=== PATIENT | female | born 1955 | race Caucasian/White ===

== ENCOUNTER 2017-11-14 11:34 | Day surgery (SDC) | payer MEDICARE, BC ==
--- NOTE | 2017-11-13 13:22 | HP ---
DATE OF SURGERY: 11/14/2017 ANTICIPATED PROCEDURE: Screening colonoscopy. HISTORY OF PRESENT ILLNESS: The patient has previous history of colon cancer and presents for screening. PAST MEDICAL HISTORY: ALLERGIES: NONE. MEDICATIONS: Senna, folic acid, warfarin, tramadol. PAST SURGICAL HISTORY: Colon cancer sigmoid with resection. SOCIAL HISTORY: Negative. FAMILY HISTORY: Negative. PHYSICAL EXAMINATION: VITAL SIGNS: Normal. CHEST: Clear. COR: Regular. ABDOMEN: No palpable organomegaly or mass. IMPRESSION: Previous sigmoid colon cancer resected. PLAN: Colonoscopy.
[~2017-11-14 11:34] MED LIST: Lactated Ringers 1,000 ML IV ONE; Lactated Ringers 1,000 ML IV SCH; Sodium Chloride 0.9% 1000 ML 1,000 ML IV SCH
[2017-11-14] MEDS ORDERED: VERSED 5 MG/5 ML IV ONE (11:35)
[2017-11-14] MEDS ORDERED: DEMEROL 50 MG IV ONE ×2 (11:35)
[2017-11-14] MEDS ORDERED: Lactated Ringers 1,000 ML IV ONE (14:06)
[2017-11-14] MEDS ORDERED: Lactated Ringers 500 ML IV ONE (14:06)
[2017-11-14 15:20] VITALS: BP 133/55; PULSE 76; O2SAT 98
== END 2017-11-14 15:15 | disposition home or self-care (01) ==
LOC: SDC 11:34
PROVIDERS: ATTEND Surgery
DX: Z12.11 Encounter for screening for malignant neoplasm of colon (principal); Z85.038 Personal history of other malignant neoplasm of large intestine; Z79.01 Long term (current) use of anticoagulants; Z79.899 Other long term (current) drug therapy
CPT/HCPCS: 94250; G0105; J2175; J2250

== ENCOUNTER 2021-03-30 08:42 | Day surgery (SDC) | payer MEDICARE, OTHER ==
--- NOTE | 2021-03-27 13:11 | HP ---
DATE OF SURGERY: 03/30/2021 HISTORY OF PRESENT ILLNESS: The patient presents with a history of colon cancer. She had a sigmoid resection back in the . The patient is due for colonoscopy. The patient is also complaining of a right neck lesion she wishes to have removed. PAST MEDICAL HISTORY: Hyperlipidemia. Depression. Osteopenia. Atrial fibrillation. PAST SURGICAL HISTORY: Sigmoid colon resection. ALLERGIES: OXYCODONE. HYDROCODONE. MEDICATIONS: Paroxetine, atorvastatin, tramadol, Senna, warfarin, orphenadrine. FAMILY HISTORY: Heart disease, diabetes, cancer. SOCIAL HISTORY: None reported. REVIEW OF SYSTEMS: CONSTITUTIONAL: Denies fever or chills. CHEST: Denies shortness of breath. CVS: Denies chest pain. ABDOMEN: Denies abdominal pain, nausea, vomiting, diarrhea, constipation or rectal bleeding. PHYSICAL EXAMINATION: GENERAL: No acute distress. CHEST: Nonlabored. No shortness of breath. CVS: Regular rate and rhythm. ABDOMEN: Soft, nontender. IMPRESSION: History of colon cancer and left neck lesion. PLAN: Colonoscopy and excision of left neck lesion with Dr. Italo Martines. As dictated by Carlene Andrade NP.
[~2021-03-30 08:42] MED LIST changes: -Lactated Ringers 1,000 ML IV ONE; -Lactated Ringers 1,000 ML IV SCH; -Sodium Chloride 0.9% 1000 ML 1,000 ML IV SCH; +XYLOCAINE 1% HCL 20 ML MDV ONE
[2021-03-30] MEDS ORDERED: Lactated Ringers 1,000 ML IV SCH (09:00)
[2021-03-30] MEDS ORDERED: Xylocaine-Mpf 2% 5 Ml Vial ONE (10:49)
[2021-03-30] MEDS ORDERED: DIPRIVAN 200 MG/20 ML IV ONE ×2 (10:49→11:55)
[2021-03-30] MEDS ORDERED: SUBLIMAZE 100 MCG/2 ML ONE (10:49)
[2021-03-30] MEDS ORDERED: Versed 2 MG/2 ML Injection ONE (10:50)
[2021-03-30] MEDS ORDERED: Triple Antibiotic Ointment ONE (11:56)
[2021-03-30 13:18] VITALS: BP 146/75; PULSE 73; O2SAT 97
--- NOTE | 2021-03-30 13:32 | OP ---
SURGERY DATE/TIME: 03/30/2021 1142 PREOPERATIVE DIAGNOSES: 1) A 2 cm pigmented lesion left neck. 2) Two year follow up of colon cancer. POSTOPERATIVE DIAGNOSES: 1) A 2 cm pigmented lesion left neck. 2) Two year follow up of colon cancer. PROCEDURES: 1) Incision and closure. 2) Colonoscopy complete to cecum, normal. SURGEON: Italo Martines M.D. ANESTHESIA: General. COMPLICATIONS: None. CONDITION: Stable. INDICATION: A patient with the above condition. DESCRIPTION OF PROCEDURE: Taken to surgery. Routine prep and drape. Elliptical excision. 0.25% Marcaine. Hemostasis obtained with electrocautery. A 2 cm lesion removed through a 3.5 cm elliptical excision. Primary closure with five sutures #3-0 chromic. Sterile dressing applied. The patient tolerated the procedure satisfactorily. Anal digital examination satisfactory. Scope introduced. The scope advanced to the cecum. Base of the cecum, ileocecal valve, ascending, hepatic, transverse, splenic, descending. Sigmoid was absent. Anastomosis was normal. You can see old hash vazquez from the sutures totally normal. Rectum normal. Anus normal. IMPRESSION: Normal examination.
== END 2021-03-30 13:24 | disposition home or self-care (01) ==
LOC: SDC 08:42
PROVIDERS: ATTEND Surgery
DX: Z08 Encounter for follow-up examination after completed treatment for malignant neoplasm (principal); Z85.038 Personal history of other malignant neoplasm of large intestine; L82.1 Other seborrheic keratosis; Z79.899 Other long term (current) drug therapy
CPT/HCPCS: 11422; G0105; 88305; J2250; J2704; J3010; A9270-GY

== ENCOUNTER 2022-05-15 09:59 | Inpatient (IN) | payer MEDICARE, OTHER ==
--- NOTE | 2022-05-15 10:44 | XRAY ---
Indication: Cough. Comparison: May 01, 2019 Portable chest demonstrates new minimal left base discoid atelectasis/scarring. Remaining heart and lungs unremarkable. Bony thorax intact again with osteopenia and mild degenerative changes.
--- NOTE | 2022-05-15 10:48 | ERPHSYRPT ---
- History of Present Illness Time Seen by Provider: 05/15/22 10:43 Exam Limitations: no limitations Patient Subjective Stated Complaint: C/O Cough with pain in chest and abdomen with coughing. Triage Nursing Assessment: Patient ambulated back to ER. Patient noted to be SOB with exertion. She is alert and oriented. Non-productive cough present. Lungs clear. Physician History: Patient is a 66-year-old female presents to emergency department for evaluation of cough productive of green sputum. Patient states that symptoms have been ongoing for approximately a week and a half. Patient has been experiencing some shortness of breath. Patient experiences some chest discomfort and abdominal discomfort while she is coughing only. Patient feels weak. Patient feels her symptoms are progressing. Patient experiences significant shortness of breath with short distances. Patient states this is unusual for her. Patient states she is fully vaccinated. Symptoms are moderate in intensity. Patient concerned that she may have pneumonia. No fever at home. No nausea vomiting or diaphoresis. No rash. Patient denies a history of the same. She voices no other complaints or concerns at this time. Portions of this note were created with voice recognition technology. There may be grammatical, spelling, punctuation or sound alike errors Timing/Duration: week(s) (1.5 weeks) Severity: moderate Modifying Factors: Improves With: other (Ambulation/activity/exertion worsens shortness of breath.) Associated Symptoms: weakness (Generalized weakness no syncope or fever) Allergies/Adverse Reactions: hydrocodone Adverse Reaction (Mild, Verified 05/15/22 10:00) Vomiting oxycodone Adverse Reaction (Mild, Verified 05/15/22 10:00) Vomiting Home Medications: Atorvastatin Calcium 80 mg PO DAILY 11/13/17 [History] Paroxetine Mesylate 12.5 mg PO DAILY 11/13/17 [History] Sennosides [Senna] 1 tab PO BID 11/13/17 [History] Tramadol HCl 50 mg PO DAILY PRN 11/13/17 [History] Warfarin Sodium 4 mg PO DAILY 11/13/17 [History] Hx Tetanus, Diphtheria Vaccination/Date Given: Yes Hx Influenza Vaccination/Date Given: Yes Hx Pneumococcal Vaccination/Date Given: Yes Immunizations Up to Date: Yes Travel Risk - International Travel Have you traveled outside of the country in past 3 weeks: No - Coronavirus Screening Are you exhibiting any of the following symptoms?: Yes Symptoms: Cough: New Onset, Shortness of Breath Close contact with a COVID-19 positive Pt in past 14-21 Days: No - Vaccine Status Have you recieved a Covid-19 vaccination: Yes [employer]: [employer] - Vaccination Dates Date of 2cond Vaccination (if applicable): ? - Review of Systems Constitutional: No Symptoms, No Fever, No Chills Eyes: No Symptoms Ears, Nose, & Throat: No Symptoms Respiratory: No Symptoms, No Cough, No Dyspnea Cardiac: No Symptoms, No Chest Pain, No Edema, No Syncope Abdominal/Gastrointestinal: No Symptoms, No Abdominal Pain, No Nausea, No Vomiting, No Diarrhea Genitourinary Symptoms: No Symptoms, No Dysuria Musculoskeletal: No Symptoms, No Back Pain, No Neck Pain Skin: No Symptoms, No Rash Neurological: No Symptoms, No Dizziness, No Focal Weakness, No Sensory Changes Psychological: No Symptoms Endocrine: No Symptoms Hematologic/Lymphatic: No Symptoms Immunological/Allergic: No Symptoms All Other Systems: Reviewed and Negative - Past Medical History Pertinent Past Medical History: Yes Neurological History: Migraines, TIA ENT History: Cataracts Cardiac History: Deep Vein Thrombosis, High Cholesterol Respiratory History: Asthma Endocrine Medical History: No Pertinent History Musculoskeletal History: Other GI Medical History: Colorectal Cancer History: No Pertinent History Psycho-Social History: No Pertinent History Female Reproductive Disorders: No Pertinent History Other Medical History: L subclavian blood clot with chemo. chemo [id number]. 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 anesthesia questionaire says RSD.reflex systemic dyst rophy. osteopenia. cluster headaches - Past Surgical History Past Surgical History: Yes Neuro Surgical History: No Pertinent History Cardiac: Other Respiratory: No Pertinent History Gastrointestinal: Colon Resection, Exploratory Laparoscopy, Other Genitourinary: No Pertinent History Musculoskeletal: Other Female Surgical History: Hysterectomy Other Surgical History: CVL port in & out, nuclear medicine stress test several years ago, ostomy placement and reversal, pt states surgery for both shoulders, "frozen shoulders" - Social History Smoking Status: Former smoker How long have you smoked: 44 yrs Exposure to second hand smoke: No Drug Use: none Patient Lives Alone: No () - Nursing Vital Signs Nursing Vital Signs: Initial Vital Signs Temperature 97.3 F 05/15/22 10:01 Pulse Rate 81 05/15/22 10:01 Respiratory Rate 22 05/15/22 10:01 Blood Pressure 138/67 05/15/22 10:01 O2 Sat by Pulse Oximetry 97 05/15/22 10:01 Pain Scale Pain Intensity 0 - Physical Exam General Appearance: no apparent distress, alert, other (Labored breathi ng/shortness of breath with exertion) Eye Exam: PERRL/EOMI, eyes nml inspection Ears, Nose, Throat Exam: normal ENT inspection, TMs normal, pharynx normal, moist mucous membranes Neck Exam: normal inspection, non-tender, supple, full range of motion Respiratory Exam: normal breath sounds, lungs clear, airway intact, other (Lungs are clear. No wheezing. No respiratory distress at rest.), No respiratory distress Cardiovascular Exam: regular rate/rhythm, normal heart sounds, normal peripheral pulses Gastrointestinal/Abdomen Exam: soft, normal bowel sounds, No tenderness, No mass Back Exam: normal inspection, normal range of motion, No CVA tenderness, No vertebral tenderness Extremity Exam: normal inspection, normal range of motion, pelvis stable Neurologic Exam: alert, oriented x 3, cooperative, normal mood/affect, nml cerebellar function, nml station & gait, sensation nml, No motor deficits Skin Exam: normal color, warm, dry, No rash Lymphatic Exam: No adenopathy SpO2 Interpretation: normal SpO2: 97 O2 Delivery: Room Air - Course Nursing assessment & vital signs reviewed: Yes EKG Interpreted by Me: RATE, Sinus Rhythm, NORMAL AXIS, NORMAL INTERVALS - Radiology Exams Chest X-ray Interpretation: Teleradiologist Report (New minimal left base discoid atelectasis/scarring. Osteopenia degenerative changes otherwise negative) - CT Exams Chest CT Interpretation: Tele-radiologist Report (No PE. Bibasilar subsegmental atelectasis. No acute cardiopulmonary abnormalities. Incidental fatty liver) Ordered Tests: Active Orders 24 hr Category Date Time Status Refrigeration Systems Installer STAT Care 05/15/22 10:50 Active EKG-ER Only STAT Care 05/15/22 10:49 Active IV Insertion STAT Care 05/15/22 10:49 Active Pulse Oximetry (ED) STAT Care 05/15/22 10:49 Active CHEST 1 VIEW (PORTABLE) Stat Exams 05/15/22 10:19 Completed CHEST WITH CONTRAST [CT] Stat Exams 05/15/22 12:36 Completed BLOOD CULTURE Stat Lab 05/15/22 11:01 Received CBC W DIFF Stat Lab 05/15/22 10:54 Completed CMP Stat Lab 05/15/22 10:54 Completed D-DIMER QUANTITATIVE Stat Lab 05/15/22 11:40 Completed NT PRO BNP Stat Lab 05/15/22 10:54 Completed PROTIME WITH INR Stat Lab 05/15/22 10:49 Completed PTT Stat Lab 05/15/22 10:49 Completed TROPONIN Q4H Lab 05/15/22 10:54 Completed TROPONIN Q4H Lab 05/15/22 15:00 Ordered TROPONIN Q4H Lab 05/15/22 19:00 Ordered Respiratory Therapy Assessment DAILY RT 05/15/22 14:13 Active Transfer Order Routine Transfer 05/15/22 Ordered Medication Summary Generic Name Dose Route Start Last Admin Trade Name Freq PRN Reason Stop Dose Admin Albuterol Sulfate 4 puff 05/15/22 13:59 05/15/22 14:13 Albuterol Common Canister Inhaler IH 06/14/22 13:58 4 puff Q4H PRN PRN Administration SHORTNESS OF BREATH/WHEEZING Discontinued Medications Generic Name Dose Route Start Last Admin Trade Name Freq PRN Reason Stop Dose Admin Dexamethasone Sodium Phosphate 6 mg 05/15/22 13:55 05/15/22 14:08 Dexamethasone Sod Phosphate 4 Mg/Ml Ml IV 05/15/22 13:56 6 mg STAT ONE Administration Dexamethasone Sodium Phosphate Confirm 05/15/22 14:05 Dexamethasone Sod Phosphate 4 Mg/Ml Ml Administered 05/15/22 14:06 Dose 8 mg .ROUTE .oboxo-MED ONE Lab/Rad Data: Laboratory Result Diagrams 05/15/22 10:54 05/15/22 10:54 Laboratory Results 05/15/22 05/15/22 05/15/22 Range/Units 12:13 11:40 10:54 WBC (4.0-10.5) x10^3/uL RBC (4.1-5.4) x10^6/uL Hgb (12.0-16.0) g/dL Hct (35-47) % MCV (78-100) fL MCH (26-32) pg MCHC (32-36) g/dL RDW (11.5-14.0) % Plt Count (150-450) x10^3/uL MPV (7.5-11.0) fL Gran % (36.0-66.0) % Immature Gran % (Auto) (0.00-0.4) % Nucleat RBC Rel Count (0.00-0.1) % Eos # (Auto) (0-0.5) x10^3/uL Immature Gran # (Auto) (0.00-0.03) x10^3u/L Absolute Lymphs (auto) (1.0-4.6) x10^3/uL Absolute Monos (auto) (0.0-1.3) x10^3/uL Absolute Nucleated RBC (0.00-0.01) x10^3u/L Lymphocytes % (24.0-44.0) % Monocytes % (0.0-12.0) % Eosinophils % (0.00-5.0) % Basophils % (0.0-0.4) % Absolute Granulocytes (1.4-6.9) x10^3/uL Basophils # (0-0.4) x10^3/uL PT (9.4-12.5) SECONDS INR (0.8-3.0) APTT (25.1-36.5) SECONDS D-Dimer < 0.19 (0.0-0.50) mg/L Sodium (137-145) mmol/L Potassium (3.5-5.1) mmol/L Chloride (98-107) mmol/L Carbon Dioxide (22-30) mmol/L Anion Gap (5-15) MEQ/L BUN (7-17) mg/dL Creatinine (0.52-1.04) mg/dL Estimated GFR ML/MIN Glucose (74-106) mg/dL Calcium (8.4-10.2) mg/dL Total Bilirubin (0.2-1.3) mg/dL AST (14-36) U/L ALT (0-35) U/L Alkaline Phosphatase (38-126) U/L Troponin I < 0.012 (0.000-0.034) ng/mL NT-Pro-B Natriuret Pep (0-900) pg/mL Serum Total Protein (6.3-8.2) g/dL Albumin (3.5-5.0) g/dL Influenza Type A Ag NEGATIVE (NEGATIVE) Influenza Type B Ag NEGATIVE (NEGATIVE) RSV (PCR) NEGATIVE (Negative) SARS-CoV-2 (PCR) POSITIVE A (NEGATIVE) 05/15/22 05/15/22 05/15/22 Range/Units 10:54 10:54 10:49 WBC 7.9 (4.0-10.5) x10^3/uL RBC 4.37 (4.1-5.4) x10^6/uL Hgb 12.7 (12.0-16.0) g/dL Hct 40.0 (35-47) % MCV 91.5 (78-100) fL MCH 29.1 (26-32) pg MCHC 31.8 L (32-36) g/dL RDW 14.7 H (11.5-14.0) % Plt Count 279 (150-450) x10^3/uL MPV 11.4 H (7.5-11.0) fL Gran % 70.8 H (36.0-66.0) % Immature Gran % (Auto) 0.3 (0.00-0.4) % Nucleat RBC Rel Count 0.0 (0.00-0.1) % Eos # (Auto) 0.06 (0-0.5) x10^3/uL Immature Gran # (Auto) 0.02 (0.00-0.03) x10^3u/L Absolute Lymphs (auto) 1.61 (1.0-4.6) x10^3/uL Absolute Monos (auto) 0.56 (0.0-1.3) x10^3/uL Absolute Nucleated RBC 0.00 (0.00-0.01) x10^3u/L Lymphocytes % 20.4 L (24.0-44.0) % Monocytes % 7.1 (0.0-12.0) % Eosinophils % 0.8 (0.00-5.0) % Basophils % 0.6 (0.0-0.4) % Absolute Granulocytes 5.61 (1.4-6.9) x10^3/uL Basophils # 0.05 (0-0.4) x10^3/uL PT 28.8 H (9.4-12.5) SECONDS INR 3.00 (0.8-3.0) APTT 50.0 H (25.1-36.5) SECONDS D-Dimer (0.0-0.50) mg/L Sodium 141 (137-145) mmol/L Potassium 3.9 (3.5-5.1) mmol/L Chloride 115 H (98-107) mmol/L Carbon Dioxide 20 L (22-30) mmol/L Anion Gap 10.6 (5-15) MEQ/L BUN 12 (7-17) mg/dL Creatinine 1.18 H (0.52-1.04) mg/dL Estimated GFR 48.7 ML/MIN Glucose 117 H (74-106) mg/dL Calcium 8.6 (8.4-10.2) mg/dL Total Bilirubin 0.30 (0.2-1.3) mg/dL AST 48 H (14-36) U/L ALT 32 (0-35) U/L Alkaline Phosphatase 146 H (38-126) U/L Troponin I (0.000-0.034) ng/mL NT-Pro-B Natriuret Pep 345 (0-900) pg/mL Serum Total Protein 7.6 (6.3-8.2) g/dL Albumin 4.1 (3.5-5.0) g/dL Influenza Type A Ag (NEGATIVE) Influenza Type B Ag (NEGATIVE) RSV (PCR) (Negative) SARS-CoV-2 (PCR) (NEGATIVE) - Progress Progress: improved Progress Note: Patient is a 66-year-old female presents to our ED for evaluation of progressive shortness of breath and coughing over the past 10 days. Patient states she occasionally coughs up green sputum. Coughing produced some discomfort to her chest and abdomen only when she coughs. Patient has a history of IVC blood clot. Patient currently on Coumadin. Patient ambulated in our ED as we assess for oxygenation. Patient was able to maintain an oxygenation of 95% however breathing was significantly labored. Review of systems and physical exam sent and unremarkable. Lung exam was normal no crackles no rales rhonchi no wheezing. Complexity of patient's presentation was moderate. No respiratory distress. Patient's comorbidities did not significantly contribute to her presentation. Test ordered include a chest x-ray, CT chest, blood culture, CBC, CMP, COVID study, D-dimer, proBNP, PT/INR, PTT, troponin. Chest x-ray was essentially nonremarkable. It did not explain her symptoms. We obtained a D-dimer which was also negative. We do not have a clear explanation of patient's symptoms. Patient had no history of COPD. In light of the fact that sensitivity of chest x-ray is approximately 70% we ordered a CT chest to assess for the possibility of PE or an alternative explanation for patient's symptoms. Although patient was therapeutic on Coumadin patient has a history of blood clot in her IVC. CT chest was negative. No significant findings on laboratory work-up. COVID positive. In light of the fact that patient's testing negative and COVID is positive. Patient symptoms likely due to COVID. proBNP normal. INR 3.0 based on coagulation study obtained. Troponin negative. The results of our testing was used for medical decision making. No outside medical records reviewed during this visit. Patient's treatment include albuterol canister which is protocol for COVID-positive patients. Patient received a dose of Decadron. No Lovenox administered as patient currently therapeutic on Coumadin. Case discussed with Dr. Rodriguez our service DrAnish Of the day. Dr. Rodriguez accepts admission to our observation COVID unit. Level of EM service provided was moderate. Number of problems addressed is 1. Complexity of problem addressed is moderate. Amount and complexity of data reviewed and analyzed is moderate. Risks of complication and/or risk of morbidi ty/mortality of patient management is moderate. No critical care time during this encounter. Patient served as a independent and competent historian. No residential care facility manager service required. Patient is a full code. Patient resting comfortably. Patient's response to treatment was good. Patient felt better after albuterol and Decadron treatment. Time spent during disposition is approximately 15 minutes. Disposition is admission to our COVID observation unit. Patient presenting problem was acute illness with systemic symptoms in light of the fact that patient is COVID-positive short of breath and experiencing generalized weakness. Portions of this note were created with voice recognition technology. There may be grammatical, spelling, punctuation or sound alike errors 05/15/22 14:[address] Kayla Will see patient in: hospital (observation) Counseled pt/family regarding: lab results, diagnosis, rad results - Departure Departure Disposition: Observation Clinical Impression: Cough, Exertional shortness of breath, Generalized weakness, Productive cough, Fatty liver, COVID Condition: Stable Critical Care Time: No Referrals: JOHANNA DAVIS MD [Primary Care Provider] - Follow up/PCP as directed
[2022-05-15 11:19] LABS: Absolute Neutrophil Ct (ANC) 5.61 x10^3/uL (1.4-6.9); BASOPHIL % 0.6 % (0.0-0.4); Basophil (Absolute #) 0.05 x10^3/uL (0-0.4); Eosinophil % 0.8 % (0.00-5.0); Eosinophil (Absolute #) 0.06 x10^3/uL (0-0.5); Hemoglobin 12.7 g/dL (12.0-16.0); IMMATURE GRAN # 0.02 x10^3u/L (0.00-0.03); IMMATURE GRAN % 0.3 % (0.00-0.4); Lymphocyte (Absolute #) 1.61 x10^3/uL (1.0-4.6); Lymphocytes % 20.4 % (24.0-44.0); Mean Cell Volume 91.5 fL (78-100); Mean Corpuscular Hemoglobin 29.1 pg (26-32); Mean Corpuscular Hgb Concent. 31.8 g/dL (32-36); Mean Platelet Volume 11.4 fL (7.5-11.0); Monocyte (Absolute #) 0.56 x10^3/uL (0.0-1.3); Monocytes % 7.1 % (0.0-12.0); Neutrophil % 70.8 % (36.0-66.0); Platelet Count 279 x10^3/uL (150-450); Red Blood Count 4.37 x10^6/uL (4.1-5.4); Red Cell Distribution Width 14.7 % (11.5-14.0); White Blood Count 7.9 x10^3/uL (4.0-10.5)
[2022-05-15 11:48] LABS: PROTIME 28.8 SECONDS (9.4-12.5)
[2022-05-15 11:56] LABS: ALBUMIN 4.1 g/dL (3.5-5.0); ANION GAP 10.6 MEQ/L (5-15); BILIRUBIN,TOTAL 0.3 mg/dL (0.2-1.3); Calcium 8.6 mg/dL (8.4-10.2); Creatinine 1 1.18 mg/dL (0.52-1.04); EST GLOMERULAR FILTRATION RATE 48.7 ML/MIN; Potassium 3.9 mmol/L (3.5-5.1); Total Protein 7.6 g/dL (6.3-8.2)
[2022-05-15 12:51] LABS: INFLUENZA A NEGATIVE (NEGATIVE); INFLUENZA B NEGATIVE (NEGATIVE); RESPIRATORY SYNCTIAL VIRUS NEGATIVE (Negative)
[2022-05-15 13:05] LABS: SARS-CoV-2 Xpert Express POSITIVE (NEGATIVE)
--- NOTE | 2022-05-15 13:36 | XRAY ---
Indication: Short of breath. Multiple contiguous axial images obtained through the chest using 80 cc Isovue 370 contrast and PE protocol. Comparison: None Good opacification of the pulmonary arteries to include the lobar and segmental branches. No pulmonary embolus. Heart not enlarged. Aorta is normal in course and caliber. No pathologic mediastinal/hilar lymphadenopathy. Lungs demonstrates bibasilar subsegmental atelectasis, left greater than right. No suspicious pulmonary mass/nodule, infiltrate, effusion, or pneumothorax. Bony thorax intact. Limited upper abdomen demonstrates fatty liver. Impression: 1. Negative pulmonary embolus. 2. Bibasilar subsegmental atelectasis. No acute cardiopulmonary abnormalities. 3. Incidental fatty liver.
[2022-05-15] MEDS ORDERED: Decadron 4 MG INJ IV ONE (13:55)
[2022-05-15] MEDS ORDERED: VENTOLIN COMMON CANISTER IH PRN (13:59)
[2022-05-15] MEDS ORDERED: Decadron 4 MG INJ ONE (14:05)
[2022-05-15] MEDS ORDERED: Zofran 4 MG/2 ML VIAL IV PRN (14:37)
[2022-05-15] MEDS: VENTOLIN COMMON CANISTER IH PRN ×2 (14:51→18:24)
[2022-05-15] MEDS ORDERED: REMDESIVIR 200 MG in Sodium Chloride 0.9% 250 ML 250 ML IV ONE (16:00)
[2022-05-15] MEDS: ZOCOR 20MG PO SCH (18:49)
[2022-05-15] MEDS: Coumadin 3 MG PO SCH (18:50)
[2022-05-15] MEDS: SENOKOT 8.6 MG PO SCH (18:50)
[2022-05-15] MEDS: JANTOVEN PO SCH (18:50)
[2022-05-15] MEDS: PAROXETINE ER 12.5 MG TABLET PO SCH (19:58)
[2022-05-15] MEDS: ULTRAM 50 MG PO PRN (20:01)
[2022-05-16 05:13] LABS: Absolute Neutrophil Ct (ANC) 4.61 x10^3/uL (1.4-6.9); BASOPHIL % 0.2 % (0.0-0.4); Basophil (Absolute #) 0.01 x10^3/uL (0-0.4); Eosinophil (Absolute #) 0 x10^3/uL (0-0.5); Hematocrit 38.6 % (35-47); Hemoglobin 11.9 g/dL (12.0-16.0); IMMATURE GRAN # 0.02 x10^3u/L (0.00-0.03); IMMATURE GRAN % 0.3 % (0.00-0.4); Lymphocyte (Absolute #) 1.57 x10^3/uL (1.0-4.6); Lymphocytes % 23.9 % (24.0-44.0); Mean Cell Volume 92.1 fL (78-100); Mean Corpuscular Hemoglobin 28.4 pg (26-32); Mean Corpuscular Hgb Concent. 30.8 g/dL (32-36); Mean Platelet Volume 10.9 fL (7.5-11.0); Monocyte (Absolute #) 0.35 x10^3/uL (0.0-1.3); Monocytes % 5.3 % (0.0-12.0); Neutrophil % 70.3 % (36.0-66.0); Platelet Count 281 x10^3/uL (150-450); Red Blood Count 4.19 x10^6/uL (4.1-5.4); White Blood Count 6.6 x10^3/uL (4.0-10.5)
[2022-05-16 05:53] LABS: INR 2.33 (0.8-3.0); PROTIME 22.9 SECONDS (9.4-12.5)
[2022-05-16] MEDS ORDERED: PAROXETINE MESYLATE 7.5 MG PO SCH (10:00)
[2022-05-16] MEDS ORDERED: LIPITOR 40MG PO SCH (10:00)
[2022-05-16] MEDS: REMDESIVIR 100 MG in Sodium Chloride 100ML MINI-BAG PLUS 100 ML IV SCH (10:39)
[2022-05-16] MEDS: Sodium Chloride 0.9% 1000 ML 1,000 ML IV SCH ×2 (10:41→21:12)
[2022-05-16] MEDS: SENOKOT 8.6 MG PO SCH ×2 (10:41→17:41)
--- NOTE | 2022-05-16 11:39 | PCM.HP ---
History of Present Illness - Chief Complaint Chief Complaint: COVID, SOB History of Present Illness: is a 66 year old female pt with hx DVT (on coumadin), HLD, hx colorectal ca (1990), Stroke/TIA (1996 and 2012), RSD, osteopenia, and fatty liver who was admitted through ER with cough and SOB and dx with COVID. She was given 1 dose remdesivir in the ER and feels that has really helped. Given decadron x 1 in ER (not on O2). SHe was sick x 10d with cough and SOB. no fever. weakness. worsening. Had all covid vaccines and boosters. now feeling better. Has been torrey po fine, but her initial CO2 was 20 and this morning is 19.6 (IV fluids added). Her eGFR 50 this morning. - Review of Systems Constitutional: Weakness Respiratory: Cough, Short Of Breath Abdominal/Gastrointestinal: Abdominal Pain (lower abd, with cough), Diarrhea (prior to arrival) Neurological: Other (insomnia) Psychological: No Anxiety, No Depression All Other Systems: Reviewed and Negative Medications & Allergies Home Medications: Home Medication List Atorvastatin Calcium 80 mg PO DAILY 11/13/17 [History Confirmed 05/15/22] Paroxetine Mesylate 12.5 mg PO DAILY 11/13/17 [History Confirmed 05/15/22] Sennosides [Senna] 1 tab PO BID 11/13/17 [History Confirmed 05/15/22] Tramadol HCl 50 mg PO DAILY PRN 11/13/17 [History Confirmed 05/15/22] Warfarin Sodium 4 mg PO DAILY 11/13/17 [History Confirmed 05/15/22] Acetaminophen 500 mg [Tylenol Extra Strength 500 mg] 1,000 mg PO Q6H PRN 05/15/22 [History Confirmed 05/15/22] Allergies/Adverse Reactions: Allergies Allergy/AdvReac Type Severity Reaction Status Date / Time hydrocodone AdvReac Mild Vomiting Verified 05/15/22 15:17 oxycodone AdvReac Mild Vomiting Verified 05/15/22 15:17 - Past Medical History Past Medical History: Yes Neurological History: Migraines, TIA ENT History: Cataracts Cardiac History: Deep Vein Thrombosis, High Cholesterol Respiratory History: Asthma Endocrine Medical History: No Pertinent History Musculoskelatal History: Other GI Medical History: Colorectal Cancer History: No Pertinent History Pyscho-Social History: No Pertinent History Reproductive Disorders: No Pertinent History Comment: L subclavian blood clot with chemo. chemo [id number]. 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 anesthesia questionairfern says RSD.reflex systemic dystrophy. osteopenia. cluster headaches - Female History Are you now?: No - Past Surgical History Past Surgical History: Yes Neuro Surgical History: No Pertinent History Cardiac History: Other Respiratory Surgery: No Pertinent History GI Surgical History: Colon Resection, Exploratory Laparoscopy, Other Genitourinary Surgical Hx: No Pertinent History Musculskeletal Surgical Hx: Other Female Surgical History: Hysterectomy Other Surgical History: CVL port in & out, nuclear medicine stress test several years ago, ostomy placement and reversal, pt states surgery for both shoulders, "frozen shoulders" - Social History Smoking Status: Former smoker How long have you smoked: 44 yrs Exposure to second hand smoke: No Alcohol: None Drug Use: none - Physical Exam Vital Signs: Vital Signs - 24 hr Temp Pulse Resp BP Pulse Ox 05/16/22 08:00 97.7 F 74 18 120/84 97 05/16/22 07:23 72 18 94 L 05/16/22 04:00 98.5 F 70 16 132/58 05/16/22 00:00 98 F 79 18 113/83 94 L 05/15/22 19:59 98.4 F 90 16 165/65 88 L 05/15/22 18:24 84 18 94 L 05/15/22 14:55 97.6 F 82 19 158/70 94 L 05/15/22 14:52 80 20 94 L 05/15/22 14:34 97 05/15/22 14:13 69 20 97 05/15/22 14:00 72 16 109/65 98 05/15/22 12:15 72 138/65 100 General Appearance: no apparent distress, obese Neurologic Exam: alert, oriented x 3, cooperative Eye Exam: eyes nml inspection Ears, Nose, Throat Exam: moist mucous membranes Neck Exam: normal inspection, non-tender, No lymphadenopathy, No subcutaneous emphysema, No thyromegaly Respiratory Exam: normal breath sounds, lungs clear, No crackles/rales, No rhonchi, No wheezing Cardiovascular Exam: regular rate/rhythm, normal heart sounds, No murmur Gastrointestinal/Abdomen Exam: soft, normal bowel sounds, tenderness (lower abd), No distention, No mass, No guarding, No rebound Extremity Exam: normal inspection, No pedal edema, No swelling Skin Exam: normal color, warm, dry, No rash Results - Labs Lab/Micro Results: Lab Results-Last 24 Hours 05/15/22 05/15/22 05/15/22 Range/Units 10:49 10:54 10:54 WBC (4.0-10.5) x10^3/uL RBC (4.1-5.4) x10^6/uL Hgb (12.0-16.0) g/dL Hct (35-47) % MCV (78-100) fL MCH (26-32) pg MCHC (32-36) g/dL RDW (11.5-14.0) % Plt Count (150-450) x10^3/uL MPV (7.5-11.0) fL Gran % (36.0-66.0) % Immature Gran % (Auto) (0.00-0.4) % Nucleat RBC Rel Count (0.00-0.1) % Eos # (Auto) (0-0.5) x10^3/uL Immature Gran # (Auto) (0.00-0.03) x10^3u/L Absolute Lymphs (auto) (1.0-4.6) x10^3/uL Absolute Monos (auto) (0.0-1.3) x10^3/uL Absolute Nucleated RBC (0.00-0.01) x10^3u/L Lymphocytes % (24.0-44.0) % Monocytes % (0.0-12.0) % Eosinophils % (0.00-5.0) % Basophils % (0.0-0.4) % Absolute Granulocytes (1.4-6.9) x10^3/uL Basophils # (0-0.4) x10^3/uL PT 28.8 H (9.4-12.5) SECONDS INR 3.00 (0.8-3.0) APTT 50.0 H (25.1-36.5) SECONDS D-Dimer (0.0-0.50) mg/L Sodium 141 (137-145) mmol/L Potassium 3.9 (3.5-5.1) mmol/L Chloride 115 H (98-107) mmol/L Carbon Dioxide 20 L (22-30) mmol/L Anion Gap 10.6 (5-15) MEQ/L BUN 12 (7-17) mg/dL Creatinine 1.18 H (0.52-1.04) mg/dL Estimated GFR 48.7 ML/MIN Glucose 117 H (74-106) mg/dL Calcium 8.6 (8.4-10.2) mg/dL Total Bilirubin 0.30 (0.2-1.3) mg/dL AST 48 H (14-36) U/L ALT 32 (0-35) U/L Alkaline Phosphatase 146 H (38-126) U/L Troponin I < 0.012 (0.000-0.034) ng/mL NT-Pro-B Natriuret Pep 345 (0-900) pg/mL Serum Total Protein 7.6 (6.3-8.2) g/dL Albumin 4.1 (3.5-5.0) g/dL Influenza Type A Ag (NEGATIVE) Influenza Type B Ag (NEGATIVE) RSV (PCR) (Negative) SARS-CoV-2 (PCR) (NEGATIVE) 05/15/22 05/15/22 05/15/22 Range/Units 11:40 12:13 15:47 WBC (4.0-10.5) x10^3/uL RBC (4.1-5.4) x10^6/uL Hgb (12.0-16.0) g/dL Hct (35-47) % MCV (78-100) fL MCH (26-32) pg MCHC (32-36) g/dL RDW (11.5-14.0) % Plt Count (150-450) x10^3/uL MPV (7.5-11.0) fL Gran % (36.0-66.0) % Immature Gran % (Auto) (0.00-0.4) % Nucleat RBC Rel Count (0.00-0.1) % Eos # (Auto) (0-0.5) x10^3/uL Immature Gran # (Auto) (0.00-0.03) x10^3u/L Absolute Lymphs (auto) (1.0-4.6) x10^3/uL Absolute Monos (auto) (0.0-1.3) x10^3/uL Absolute Nucleated RBC (0.00-0.01) x10^3u/L Lymphocytes % (24.0-44.0) % Monocytes % (0.0-12.0) % Eosinophils % (0.00-5.0) % Basophils % (0.0-0.4) % Absolute Granulocytes (1.4-6.9) x10^3/uL Basophils # (0-0.4) x10^3/uL PT (9.4-12.5) SECONDS INR (0.8-3.0) APTT (25.1-36.5) SECONDS D-Dimer < 0.19 (0.0-0.50) mg/L Sodium (137-145) mmol/L Potassium (3.5-5.1) mmol/L Chloride (98-107) mmol/L Carbon Dioxide (22-30) mmol/L Anion Gap (5-15) MEQ/L BUN (7-17) mg/dL Creatinine (0.52-1.04) mg/dL Estimated GFR ML/MIN Glucose (74-106) mg/dL Calcium (8.4-10.2) mg/dL Total Bilirubin (0.2-1.3) mg/dL AST (14-36) U/L ALT (0-35) U/L Alkaline Phosphatase (38-126) U/L Troponin I < 0.012 (0.000-0.034) ng/mL NT-Pro-B Natriuret Pep (0-900) pg/mL Serum Total Protein (6.3-8.2) g/dL Albumin (3.5-5.0) g/dL Influenza Type A Ag NEGATIVE (NEGATIVE) Influenza Type B Ag NEGATIVE (NEGATIVE) RSV (PCR) NEGATIVE (Negative) SARS-CoV-2 (PCR) POSITIVE A (NEGATIVE) 05/15/22 05/16/22 05/16/22 Range/Units 19:33 05:00 05:00 WBC 6.6 (4.0-10.5) x10^3/uL RBC 4.19 (4.1-5.4) x10^6/uL Hgb 11.9 L (12.0-16.0) g/dL Hct 38.6 (35-47) % MCV 92.1 (78-100) fL MCH 28.4 (26-32) pg MCHC 30.8 L (32-36) g/dL RDW 15.0 H (11.5-14.0) % Plt Count 281 (150-450) x10^3/uL MPV 10.9 (7.5-11.0) fL Gran % 70.3 H (36.0-66.0) % Immature Gran % (Auto) 0.3 (0.00-0.4) % Nucleat RBC Rel Count 0.0 (0.00-0.1) % Eos # (Auto) 0 (0-0.5) x10^3/uL Immature Gran # (Auto) 0.02 (0.00-0.03) x10^3u/L Absolute Lymphs (auto) 1.57 (1.0-4.6) x10^3/uL Absolute Monos (auto) 0.35 (0.0-1.3) x10^3/uL Absolute Nucleated RBC 0.00 (0.00-0.01) x10^3u/L Lymphocytes % 23.9 L (24.0-44.0) % Monocytes % 5.3 (0.0-12.0) % Eosinophils % 0.0 (0.00-5.0) % Basophils % 0.2 (0.0-0.4) % Absolute Granulocytes 4.61 (1.4-6.9) x10^3/uL Basophils # 0.01 (0-0.4) x10^3/uL PT (9.4-12.5) SECONDS INR (0.8-3.0) APTT (25.1-36.5) SECONDS D-Dimer (0.0-0.50) mg/L Sodium (137-145) mmol/L Potassium (3.5-5.1) mmol/L Chloride (98-107) mmol/L Carbon Dioxide (22-30) mmol/L Anion Gap (5-15) MEQ/L BUN (7-17) mg/dL Creatinine (0.52-1.04) mg/dL Estimated GFR ML/MIN Glucose (74-106) mg/dL Calcium (8.4-10.2) mg/dL Total Bilirubin (0.2-1.3) mg/dL AST (14-36) U/L ALT (0-35) U/L Alkaline Phosphatase (38-126) U/L Troponin I < 0.012 (0.000-0.034) ng/mL NT-Pro-B Natriuret Pep (0-900) pg/mL Serum Total Protein (6.3-8.2) g/dL Albumin (3.5-5.0) g/dL Influenza Type A Ag (NEGATIVE) Influenza Type B Ag (NEGATIVE) RSV (PCR) (Negative) SARS-CoV-2 (PCR) (NEGATIVE) 05/16/22 Range/Units 05:00 WBC (4.0-10.5) x10^3/uL RBC (4.1-5.4) x10^6/uL Hgb (12.0-16.0) g/dL Hct (35-47) % MCV (78-100) fL MCH (26-32) pg MCHC (32-36) g/dL RDW (11.5-14.0) % Plt Count (150-450) x10^3/uL MPV (7.5-11.0) fL Gran % (36.0-66.0) % Immature Gran % (Auto) (0.00-0.4) % Nucleat RBC Rel Count (0.00-0.1) % Eos # (Auto) (0-0.5) x10^3/uL Immature Gran # (Auto) (0.00-0.03) x10^3u/L Absolute Lymphs (auto) (1.0-4.6) x10^3/uL Absolute Monos (auto) (0.0-1.3) x10^3/uL Absolute Nucleated RBC (0.00-0.01) x10^3u/L Lymphocytes % (24.0-44.0) % Monocytes % (0.0-12.0) % Eosinophils % (0.00-5.0) % Basophils % (0.0-0.4) % Absolute Granulocytes (1.4-6.9) x10^3/uL Basophils # (0-0.4) x10^3/uL PT 22.9 H (9.4-12.5) SECONDS INR 2.33 (0.8-3.0) APTT 51.0 H (25.1-36.5) SECONDS D-Dimer (0.0-0.50) mg/L Sodium (137-145) mmol/L Potassium (3.5-5.1) mmol/L Chloride (98-107) mmol/L Carbon Dioxide (22-30) mmol/L Anion Gap (5-15) MEQ/L BUN (7-17) mg/dL Creatinine (0.52-1.04) mg/dL Estimated GFR ML/MIN Glucose (74-106) mg/dL Calcium (8.4-10.2) mg/dL Total Bilirubin (0.2-1.3) mg/dL AST (14-36) U/L ALT (0-35) U/L Alkaline Phosphatase (38-126) U/L Troponin I (0.000-0.034) ng/mL NT-Pro-B Natriuret Pep (0-900) pg/mL Serum Total Protein (6.3-8.2) g/dL Albumin (3.5-5.0) g/dL Influenza Type A Ag (NEGATIVE) Influenza Type B Ag (NEGATIVE) RSV (PCR) (Negative) SARS-CoV-2 (PCR) (NEGATIVE) - Radiology Impressions Radiology Exams & Impressions: Radiology Procedures Category Date Time Status CHEST 1 VIEW (PORTABLE) Stat Exams 05/15/22 10:19 Completed CHEST WITH CONTRAST [CT] Stat Exams 05/15/22 12:36 Completed - Other Procedures and Tests Respiratory Therapy 05/15/22 14:13 Respiratory Therapy Assessment DAILY Assessment/Plan (1) COVID Current Visit: Yes Status: Acute Assessment & Plan: on remdesivir. No more dexamethasone, not on O2. Code(s): U07.1 - COVID-19 (2) Generalized weakness Current Visit: Yes Status: Acute Code(s): R53.1 - WEAKNESS (3) Hx of deep venous thrombosis Current Visit: Yes Status: Chronic Assessment & Plan: therapeutic on coumadin Code(s): Z86.718 - PERSONAL HISTORY OF OTHER VENOUS THROMBOSIS AND EMBOLISM (4) History of colorectal cancer Current Visit: Yes Status: Chronic Code(s): Z85.048 - PRSNL HX OF MALIG NEOPLM OF RECTUM, RECTOSIG JUNCT, AND ANUS (5) FARIDA (acute kidney injury) Current Visit: Yes Status: Acute Assessment & Plan: vs chronic - will continue checking Code(s): N17.9 - ACUTE KIDNEY FAILURE, UNSPECIFIED
[2022-05-16] MEDS: JANTOVEN PO SCH (17:29)
[2022-05-16] MEDS: Coumadin 3 MG PO SCH (17:29)
[2022-05-16] MEDS: ZOCOR 20MG PO SCH (17:29)
[2022-05-16] MEDS: PAROXETINE ER 12.5 MG TABLET PO SCH (17:30)
[2022-05-16] MEDS: Ativan 1 MG PO PRN (21:11)
[2022-05-17 04:57] LABS: BASOPHIL % 0.4 % (0.0-0.4); Basophil (Absolute #) 0.04 x10^3/uL (0-0.4); Eosinophil % 0.7 % (0.00-5.0); Eosinophil (Absolute #) 0.06 x10^3/uL (0-0.5); Hematocrit 35.4 % (35-47); Hemoglobin 11.2 g/dL (12.0-16.0); IMMATURE GRAN # 0.02 x10^3u/L (0.00-0.03); IMMATURE GRAN % 0.2 % (0.00-0.4); Lymphocytes % 31.5 % (24.0-44.0); Mean Corpuscular Hemoglobin 28.8 pg (26-32); Mean Corpuscular Hgb Concent. 31.6 g/dL (32-36); Mean Platelet Volume 11.2 fL (7.5-11.0); Monocyte (Absolute #) 0.68 x10^3/uL (0.0-1.3); Monocytes % 7.4 % (0.0-12.0); Neutrophil % 59.8 % (36.0-66.0); Platelet Count 275 x10^3/uL (150-450); Red Blood Count 3.89 x10^6/uL (4.1-5.4); Red Cell Distribution Width 15.2 % (11.5-14.0); White Blood Count 9.2 x10^3/uL (4.0-10.5)
[2022-05-17 05:29] LABS: INR 2.21 (0.8-3.0); PROTIME 21.8 SECONDS (9.4-12.5)
[2022-05-17 05:32] LABS: ANION GAP 9.8 MEQ/L (5-15); Calcium 7.5 mg/dL (8.4-10.2); Creatinine 1 1.03 mg/dL (0.52-1.04); Potassium 3.8 mmol/L (3.5-5.1)
[2022-05-17] MEDS: Sodium Chloride 0.9% 1000 ML 1,000 ML IV SCH (07:29)
[2022-05-17] MEDS: VENTOLIN COMMON CANISTER IH PRN (08:15)
[2022-05-17] MEDS ORDERED: Lasix 20 MG/2 ML IV ONE (08:43)
--- NOTE | 2022-05-17 08:45 | PCM.NOTE ---
Date and Time: 05/17/22 0843 Subjective Assessment: patient reports she is feeling poorly, short of breath. currently on oxygen mask and appears dyspneic Objective Exam General Appearance: no apparent distress Neurologic Exam: alert, oriented x 3 Respiratory Exam: crackles/rales Cardiovascular Exam: regular rate/rhythm, normal heart sounds Gastrointestinal/Abdomen Exam: soft, No tenderness, No mass Extremity Exam: normal inspection, normal range of motion OBJECTIVE DATA Vital Signs: Vital Signs - 24 hr Temp Pulse Resp BP Pulse Ox 05/17/22 07:45 18 05/17/22 07:07 73 18 92 L 05/17/22 06:43 97.3 F 75 18 122/67 92 L 05/17/22 04:00 98.5 F 75 18 136/59 93 L 05/16/22 23:47 22 05/16/22 19:45 98.9 F 77 22 145/76 96 05/16/22 18:24 89 18 98 05/16/22 16:00 98.1 F 79 16 156/70 95 05/16/22 12:00 98.1 F 77 16 149/58 97 Pain Assessment - Last Documented Pain Intensity 0 Intake and Output: Intake & Output 05/14/22 05/15/22 05/16/22 05/17/22 11:59 11:59 11:59 11:59 Intake Total 720 2581 Balance 720 2581 Weight 77 kg 77.2 kg Lab Results: Lab Results-Last 24 Hours 05/16/22 05/17/22 05/17/22 Range/Units 05:00 04:15 04:15 WBC 9.2 (4.0-10.5) x10^3/uL RBC 3.89 L (4.1-5.4) x10^6/uL Hgb 11.2 L (12.0-16.0) g/dL Hct 35.4 (35-47) % MCV 91.0 (78-100) fL MCH 28.8 (26-32) pg MCHC 31.6 L (32-36) g/dL RDW 15.2 H (11.5-14.0) % Plt Count 275 (150-450) x10^3/uL MPV 11.2 H (7.5-11.0) fL Gran % 59.8 (36.0-66.0) % Immature Gran % (Auto) 0.2 (0.00-0.4) % Nucleat RBC Rel Count 0.0 (0.00-0.1) % Eos # (Auto) 0.06 (0-0.5) x10^3/uL Immature Gran # (Auto) 0.02 (0.00-0.03) x10^3u/L Absolute Lymphs (auto) 2.90 (1.0-4.6) x10^3/uL Absolute Monos (auto) 0.68 (0.0-1.3) x10^3/uL Absolute Nucleated RBC 0.00 (0.00-0.01) x10^3u/L Lymphocytes % 31.5 (24.0-44.0) % Monocytes % 7.4 (0.0-12.0) % Eosinophils % 0.7 (0.00-5.0) % Basophils % 0.4 (0.0-0.4) % Absolute Granulocytes 5.50 (1.4-6.9) x10^3/uL Basophils # 0.04 (0-0.4) x10^3/uL PT (9.4-12.5) SECONDS INR (0.8-3.0) Sodium 142 (137-145) mmol/L Potassium 3.8 (3.5-5.1) mmol/L Chloride 116 H (98-107) mmol/L Carbon Dioxide 20 L (22-30) mmol/L Anion Gap 9.8 (5-15) MEQ/L BUN 27 H (7-17) mg/dL Creatinine 1.03 (0.52-1.04) mg/dL Estimated GFR 57.0 ML/MIN Glucose 100 (74-106) mg/dL Calcium 7.5 L (8.4-10.2) mg/dL 05/17/22 Range/Units 04:15 WBC (4.0-10.5) x10^3/uL RBC (4.1-5.4) x10^6/uL Hgb (12.0-16.0) g/dL Hct (35-47) % MCV (78-100) fL MCH (26-32) pg MCHC (32-36) g/dL RDW (11.5-14.0) % Plt Count (150-450) x10^3/uL MPV (7.5-11.0) fL Gran % (36.0-66.0) % Immature Gran % (Auto) (0.00-0.4) % Nucleat RBC Rel Count (0.00-0.1) % Eos # (Auto) (0-0.5) x10^3/uL Immature Gran # (Auto) (0.00-0.03) x10^3u/L Absolute Lymphs (auto) (1.0-4.6) x10^3/uL Absolute Monos (auto) (0.0-1.3) x10^3/uL Absolute Nucleated RBC (0.00-0.01) x10^3u/L Lymphocytes % (24.0-44.0) % Monocytes % (0.0-12.0) % Eosinophils % (0.00-5.0) % Basophils % (0.0-0.4) % Absolute Granulocytes (1.4-6.9) x10^3/uL Basophils # (0-0.4) x10^3/uL PT 21.8 H (9.4-12.5) SECONDS INR 2.21 (0.8-3.0) Sodium (137-145) mmol/L Potassium (3.5-5.1) mmol/L Chloride (98-107) mmol/L Carbon Dioxide (22-30) mmol/L Anion Gap (5-15) MEQ/L BUN (7-17) mg/dL Creatinine (0.52-1.04) mg/dL Estimated GFR ML/MIN Glucose (74-106) mg/dL Calcium (8.4-10.2) mg/dL Radiology Exams: Radiology Procedures Category Date Time Status CHEST 1 VIEW (PORTABLE) Stat Exams 05/15/22 10:19 Completed CHEST WITH CONTRAST [CT] Stat Exams 05/15/22 12:36 Completed Assessment/Plan (1) COVID Current Visit: Yes Status: Acute Assessment & Plan: continue remdesivir and dexamethasone. appears volume overloaded this am, d/c fluids and give a dose of IV lasix. will monitor Code(s): U07.1 - COVID-19 (2) Hx of deep venous thrombosis Current Visit: Yes Status: Chronic Code(s): Z86.718 - PERSONAL HISTORY OF OTHER VENOUS THROMBOSIS AND EMBOLISM
[2022-05-17] MEDS: REMDESIVIR 100 MG in Sodium Chloride 100ML MINI-BAG PLUS 100 ML IV SCH (09:16)
[2022-05-17] MEDS: ULTRAM 50 MG PO PRN ×2 (09:16→14:57)
[2022-05-17] MEDS: SENOKOT 8.6 MG PO SCH ×2 (09:16→17:03)
[2022-05-17] MEDS: Decadron 4 MG INJ IV SCH ×2 (09:16→20:58)
[2022-05-17] MEDS: JANTOVEN PO SCH (17:02)
[2022-05-17] MEDS: ZOCOR 20MG PO SCH (17:02)
[2022-05-17] MEDS: Coumadin 3 MG PO SCH (17:03)
[2022-05-17] MEDS: PAROXETINE ER 12.5 MG TABLET PO SCH (17:03)
[2022-05-17] MEDS: Ativan 1 MG PO PRN (20:58)
[2022-05-18 05:15] LABS: Absolute Neutrophil Ct (ANC) 6.83 x10^3/uL (1.4-6.9); BASOPHIL % 0.1 % (0.0-0.4); Basophil (Absolute #) 0.01 x10^3/uL (0-0.4); Eosinophil (Absolute #) 0 x10^3/uL (0-0.5); Hematocrit 38.7 % (35-47); Hemoglobin 11.9 g/dL (12.0-16.0); IMMATURE GRAN # 0.03 x10^3u/L (0.00-0.03); IMMATURE GRAN % 0.4 % (0.00-0.4); Lymphocyte (Absolute #) 1.38 x10^3/uL (1.0-4.6); Lymphocytes % 16.3 % (24.0-44.0); Mean Cell Volume 91.9 fL (78-100); Mean Corpuscular Hemoglobin 28.3 pg (26-32); Mean Corpuscular Hgb Concent. 30.7 g/dL (32-36); Mean Platelet Volume 11.1 fL (7.5-11.0); Monocytes % 2.4 % (0.0-12.0); Neutrophil % 80.8 % (36.0-66.0); Platelet Count 316 x10^3/uL (150-450); Red Blood Count 4.21 x10^6/uL (4.1-5.4); Red Cell Distribution Width 15.2 % (11.5-14.0); White Blood Count 8.5 x10^3/uL (4.0-10.5)
[2022-05-18 05:35] LABS: ANION GAP 13.4 MEQ/L (5-15); BLOOD UREA NITROGEN 25 mg/dL (7-17); CHLORIDE 108 mmol/L (98-107); Calcium 8.4 mg/dL (8.4-10.2); Carbon Dioxide 24 mmol/L (22-30); Creatinine 1 0.92 mg/dL (0.52-1.04); EST GLOMERULAR FILTRATION RATE > 60.0 ML/MIN; Glucose 147 mg/dL (74-106); SODIUM 141 mmol/L (137-145)
[2022-05-18 05:42] LABS: INR 1.81 (0.8-3.0); PROTIME 18.2 SECONDS (9.4-12.5)
--- NOTE | 2022-05-18 08:24 | PCM.NOTE ---
Date and Time: 05/18/22822 Subjective Assessment: patient appears more comfortable, eating breakfast. still feels short of breath but some improvement noted Objective Exam General Appearance: no apparent distress Neurologic Exam: alert, oriented x 3 Respiratory Exam: rhonchi Cardiovascular Exam: regular rate/rhythm, normal heart sounds Gastrointestinal/Abdomen Exam: soft, No tenderness, No mass OBJECTIVE DATA Vital Signs: Vital Signs - 24 hr Temp Pulse Resp BP Pulse Ox 05/18/22 07:46 73 19 91 L 05/18/22 07:40 98.0 F 66 17 123/72 97 05/18/22 04:00 97.6 F 64 20 120/64 96 05/17/22 23:57 97.9 F 75 20 122/64 95 05/17/22 20:00 97.9 F 66 20 130/66 95 05/17/22 18:40 77 20 93 L 05/17/22 16:00 18 05/17/22 15:50 97.7 F 78 18 127/61 89 L 05/17/22 12:00 96.2 F 78 18 123/91 96 05/17/22 08:47 92 L 05/17/22 08:45 74 20 87 L Pain Assessment - Last Documented Pain Intensity 0 Intake and Output: Intake & Output 05/15/22 05/16/22 05/17/22 05/18/22 11:59 11:59 11:59 11:59 Intake Total 720 2821 1160 Balance 720 2821 1160 Weight 77 kg 77.2 kg Lab Results: Lab Results-Last 24 Hours 05/18/22 05/18/22 05/18/22 Range/Units 04:18 04:18 04:18 WBC 8.5 (4.0-10.5) x10^3/uL RBC 4.21 (4.1-5.4) x10^6/uL Hgb 11.9 L (12.0-16.0) g/dL Hct 38.7 (35-47) % MCV 91.9 (78-100) fL MCH 28.3 (26-32) pg MCHC 30.7 L (32-36) g/dL RDW 15.2 H (11.5-14.0) % Plt Count 316 (150-450) x10^3/uL MPV 11.1 H (7.5-11.0) fL Gran % 80.8 H (36.0-66.0) % Immature Gran % (Auto) 0.4 (0.00-0.4) % Nucleat RBC Rel Count 0.0 (0.00-0.1) % Eos # (Auto) 0 (0-0.5) x10^3/uL Immature Gran # (Auto) 0.03 (0.00-0.03) x10^3u/L Absolute Lymphs (auto) 1.38 (1.0-4.6) x10^3/uL Absolute Monos (auto) 0.20 (0.0-1.3) x10^3/uL Absolute Nucleated RBC 0.00 (0.00-0.01) x10^3u/L Lymphocytes % 16.3 L (24.0-44.0) % Monocytes % 2.4 (0.0-12.0) % Eosinophils % 0.0 (0.00-5.0) % Basophils % 0.1 (0.0-0.4) % Absolute Granulocytes 6.83 (1.4-6.9) x10^3/uL Basophils # 0.01 (0-0.4) x10^3/uL PT 18.2 H (9.4-12.5) SECONDS INR 1.81 (0.8-3.0) Sodium 141 (137-145) mmol/L Potassium 4.0 (3.5-5.1) mmol/L Chloride 108 H (98-107) mmol/L Carbon Dioxide 24 (22-30) mmol/L Anion Gap 13.4 (5-15) MEQ/L BUN 25 H (7-17) mg/dL Creatinine 0.92 (0.52-1.04) mg/dL Estimated GFR > 60.0 ML/MIN Glucose 147 H (74-106) mg/dL Calcium 8.4 (8.4-10.2) mg/dL Multi-Disciplinary Progress Notes: Multi-Disciplinary Progress Notes 05/17/22 12:38 Case Management Note by Promise Gastelum S/W PATIENT- SHE CONTINUES TO DENY ANY NEW NEEDS AT TIME OF DC. SHE REPORTS HER CAN ASSIST HER AT TIME OF DC Initialized on 05/17/22 12:38 - END OF NOTE Assessment/Plan (1) COVID Current Visit: Yes Status: Acute Assessment & Plan: continue remdesivir and decadron, she is slowly improving clinically. on warfarin Code(s): U07.1 - COVID-19 (2) Hx of deep venous thrombosis Current Visit: Yes Status: Chronic Code(s): Z86.718 - PERSONAL HISTORY OF OTHER VENOUS THROMBOSIS AND EMBOLISM
--- NOTE | 2022-05-18 08:56 | XRAY ---
Indication: Follow-up Covid 19. Comparison: May 15, 2022 Portable chest demonstrates new mild left and minimal right base infiltrates versus atelectasis. Remaining heart and upper lungs normal.
[2022-05-18] MEDS: SENOKOT 8.6 MG PO SCH ×2 (10:33→17:03)
[2022-05-18] MEDS: REMDESIVIR 100 MG in Sodium Chloride 100ML MINI-BAG PLUS 100 ML IV SCH (10:33)
[2022-05-18] MEDS: Decadron 4 MG INJ IV SCH ×2 (10:33→21:14)
[2022-05-18] MEDS: Coumadin 3 MG PO SCH (17:02)
[2022-05-18] MEDS: ZOCOR 20MG PO SCH (17:02)
[2022-05-18] MEDS: PAROXETINE ER 12.5 MG TABLET PO SCH (17:03)
[2022-05-18] MEDS: JANTOVEN PO SCH (17:03)
[2022-05-18] MEDS: ULTRAM 50 MG PO PRN (17:25)
[2022-05-18] MEDS: ROCEPHIN 1 Gm-D5w 50 ml Bag** 1 G/50 ML IVPB IV SCH (17:39)
[2022-05-18] MEDS: Zithromax 500 MG/ 250 ML NaCl Premix 500 MG/250 ML IVPB IV SCH (18:28)
[2022-05-18] MEDS: Ativan 1 MG PO PRN (21:14)
[2022-05-19 06:22] LABS: Absolute Neutrophil Ct (ANC) 8.18 x10^3/uL (1.4-6.9); BASOPHIL % 0.1 % (0.0-0.4); Basophil (Absolute #) 0.01 x10^3/uL (0-0.4); Eosinophil (Absolute #) 0 x10^3/uL (0-0.5); Hemoglobin 11.8 g/dL (12.0-16.0); IMMATURE GRAN # 0.07 x10^3u/L (0.00-0.03); IMMATURE GRAN % 0.7 % (0.00-0.4); Lymphocyte (Absolute #) 1.67 x10^3/uL (1.0-4.6); Lymphocytes % 16.2 % (24.0-44.0); Mean Cell Volume 90.7 fL (78-100); Mean Corpuscular Hemoglobin 28.9 pg (26-32); Mean Corpuscular Hgb Concent. 31.9 g/dL (32-36); Mean Platelet Volume 10.9 fL (7.5-11.0); Monocyte (Absolute #) 0.35 x10^3/uL (0.0-1.3); Monocytes % 3.4 % (0.0-12.0); Neutrophil % 79.6 % (36.0-66.0); Platelet Count 304 x10^3/uL (150-450); Red Blood Count 4.08 x10^6/uL (4.1-5.4); Red Cell Distribution Width 14.9 % (11.5-14.0); White Blood Count 10.3 x10^3/uL (4.0-10.5)
[2022-05-19 06:43] LABS: ANION GAP 9.5 MEQ/L (5-15); BLOOD UREA NITROGEN 28 mg/dL (7-17); CHLORIDE 111 mmol/L (98-107); Calcium 8.3 mg/dL (8.4-10.2); Carbon Dioxide 23 mmol/L (22-30); Creatinine 1 0.94 mg/dL (0.52-1.04); EST GLOMERULAR FILTRATION RATE > 60.0 ML/MIN; Glucose 150 mg/dL (74-106); Potassium 3.9 mmol/L (3.5-5.1); SODIUM 140 mmol/L (137-145)
[2022-05-19 06:58] LABS: INR 2.18 (0.8-3.0); PROTIME 21.5 SECONDS (9.4-12.5)
[2022-05-19] MEDS: Decadron 4 MG INJ IV SCH ×2 (09:11→20:56)
[2022-05-19] MEDS: ROCEPHIN 1 Gm-D5w 50 ml Bag** 1 G/50 ML IVPB IV SCH (09:11)
[2022-05-19] MEDS: SENOKOT 8.6 MG PO SCH ×2 (09:11→19:03)
[2022-05-19] MEDS: Zithromax 500 MG/ 250 ML NaCl Premix 500 MG/250 ML IVPB IV SCH (09:49)
--- NOTE | 2022-05-19 10:22 | PCM.NOTE ---
Date and Time: 05/19/22 1021 Subjective Assessment: patient was started on antibiotics yesterday for possible pneumonia. she is feeling some better today, she is on room air this morning Objective Exam General Appearance: no apparent distress Neurologic Exam: alert, oriented x 3 Respiratory Exam: lungs clear Cardiovascular Exam: regular rate/rhythm, normal heart sounds Gastrointestinal/Abdomen Exam: soft, No tenderness, No mass Extremity Exam: normal inspection, normal range of motion OBJECTIVE DATA Vital Signs: Vital Signs - 24 hr Temp Pulse Resp BP Pulse Ox 05/19/22 08:06 75 18 94 L 05/19/22 08:00 18 05/19/22 07:27 98.1 F 72 16 145/64 93 L 05/19/22 04:00 97.6 F 71 16 120/72 93 L 05/19/22 00:00 18 05/18/22 23:57 97.7 F 82 18 123/59 95 05/18/22 20:00 97.8 F 87 18 119/57 95 05/18/22 18:50 86 18 93 L 05/18/22 16:00 97.4 F 73 19 134/74 92 L 05/18/22 11:48 97.9 F 68 18 142/70 100 Pain Assessment - Last Documented Pain Intensity 0 Intake and Output: Intake & Output 05/16/22 05/17/22 05/18/22 05/19/22 11:59 11:59 11:59 11:59 Intake Total 720 2821 1540 2410 Balance 720 2821 1540 2410 Weight 77.2 kg 77.2 kg Lab Results: Lab Results-Last 24 Hours 05/19/22 05/19/22 05/19/22 Range/Units 06:20 06:20 06:20 WBC 10.3 (4.0-10.5) x10^3/uL RBC 4.08 L (4.1-5.4) x10^6/uL Hgb 11.8 L (12.0-16.0) g/dL Hct 37.0 (35-47) % MCV 90.7 (78-100) fL MCH 28.9 (26-32) pg MCHC 31.9 L (32-36) g/dL RDW 14.9 H (11.5-14.0) % Plt Count 304 (150-450) x10^3/uL MPV 10.9 (7.5-11.0) fL Gran % 79.6 H (36.0-66.0) % Immature Gran % (Auto) 0.7 H (0.00-0.4) % Nucleat RBC Rel Count 0.0 (0.00-0.1) % Eos # (Auto) 0 (0-0.5) x10^3/uL Immature Gran # (Auto) 0.07 H (0.00-0.03) x10^3u/L Absolute Lymphs (auto) 1.67 (1.0-4.6) x10^3/uL Absolute Monos (auto) 0.35 (0.0-1.3) x10^3/uL Absolute Nucleated RBC 0.00 (0.00-0.01) x10^3u/L Lymphocytes % 16.2 L (24.0-44.0) % Monocytes % 3.4 (0.0-12.0) % Eosinophils % 0.0 (0.00-5.0) % Basophils % 0.1 (0.0-0.4) % Absolute Granulocytes 8.18 H (1.4-6.9) x10^3/uL Basophils # 0.01 (0-0.4) x10^3/uL PT 21.5 H (9.4-12.5) SECONDS INR 2.18 (0.8-3.0) Sodium 140 (137-145) mmol/L Potassium 3.9 (3.5-5.1) mmol/L Chloride 111 H (98-107) mmol/L Carbon Dioxide 23 (22-30) mmol/L Anion Gap 9.5 (5-15) MEQ/L BUN 28 H (7-17) mg/dL Creatinine 0.94 (0.52-1.04) mg/dL Estimated GFR > 60.0 ML/MIN Glucose 150 H (74-106) mg/dL Calcium 8.3 L (8.4-10.2) mg/dL Radiology Exams: Radiology Procedures Category Date Time Status CHEST 1 VIEW (PORTABLE) Routine Exams 05/18/22 08:24 Completed Multi-Disciplinary Progress Notes: Multi-Disciplinary Progress Notes 05/18/22 17:35 Pharmacy Note by Conrado Lerma 05-18: Please be aware of possible drug interaction with Coumadin and Zithromax. May increase INR. Initialized on 05/18/22 17:35 - END OF NOTE Assessment/Plan (1) COVID Current Visit: Yes Status: Acute Assessment & Plan: remdesivir and IV decadron Code(s): U07.1 - COVID-19 (2) Pneumonia Current Visit: Yes Status: Acute Assessment & Plan: rocephin/zithromax Code(s): J18.9 - PNEUMONIA, UNSPECIFIED ORGANISM (3) Hx of deep venous thrombosis Current Visit: Yes Status: Chronic Assessment & Plan: INR therapeutic Code(s): Z86.718 - PERSONAL HISTORY OF OTHER VENOUS THROMBOSIS AND EMBOLISM
[2022-05-19] MEDS: REMDESIVIR 100 MG in Sodium Chloride 100ML MINI-BAG PLUS 100 ML IV SCH (11:44)
[2022-05-19] MEDS: ZOCOR 20MG PO SCH (19:00)
[2022-05-19] MEDS: JANTOVEN PO SCH (19:01)
[2022-05-19] MEDS: Coumadin 3 MG PO SCH (19:01)
[2022-05-19] MEDS: Ativan 1 MG PO PRN (21:02)
[2022-05-20 06:12] LABS: Absolute Neutrophil Ct (ANC) 7.65 x10^3/uL (1.4-6.9); BASOPHIL % 0.2 % (0.0-0.4); Basophil (Absolute #) 0.02 x10^3/uL (0-0.4); Eosinophil (Absolute #) 0 x10^3/uL (0-0.5); Hematocrit 35.3 % (35-47); Hemoglobin 11.6 g/dL (12.0-16.0); IMMATURE GRAN # 0.19 x10^3u/L (0.00-0.03); IMMATURE GRAN % 1.9 % (0.00-0.4); Lymphocyte (Absolute #) 1.84 x10^3/uL (1.0-4.6); Lymphocytes % 18.1 % (24.0-44.0); Mean Cell Volume 89.1 fL (78-100); Mean Corpuscular Hemoglobin 29.3 pg (26-32); Mean Corpuscular Hgb Concent. 32.9 g/dL (32-36); Mean Platelet Volume 11.2 fL (7.5-11.0); Monocyte (Absolute #) 0.47 x10^3/uL (0.0-1.3); Monocytes % 4.6 % (0.0-12.0); Neutrophil % 75.2 % (36.0-66.0); Platelet Count 310 x10^3/uL (150-450); Red Blood Count 3.96 x10^6/uL (4.1-5.4); Red Cell Distribution Width 15.1 % (11.5-14.0); White Blood Count 10.2 x10^3/uL (4.0-10.5)
[2022-05-20 06:36] LABS: INR 2.67 (0.8-3.0); PROTIME 25.9 SECONDS (9.4-12.5)
[2022-05-20 06:47] LABS: ANION GAP 9.5 MEQ/L (5-15); Calcium 8.2 mg/dL (8.4-10.2); Creatinine 1 1.02 mg/dL (0.52-1.04); EST GLOMERULAR FILTRATION RATE 57.6 ML/MIN; Potassium 3.9 mmol/L (3.5-5.1)
[2022-05-20 07:06] VITALS: BP 132/74
[2022-05-20] MEDS: ROCEPHIN 1 Gm-D5w 50 ml Bag** 1 G/50 ML IVPB IV SCH (08:08)
[2022-05-20] MEDS: SENOKOT 8.6 MG PO SCH (08:09)
[2022-05-20] MEDS: Decadron 4 MG INJ IV SCH (08:09)
[2022-05-20] MEDS: Zithromax 500 MG/ 250 ML NaCl Premix 500 MG/250 ML IVPB IV SCH (08:10)
[2022-05-20 09:30] VITALS: PULSE 77; O2SAT 96
--- NOTE | 2022-05-20 10:10 | PCM.DS ---
Discharge Summary Date of Admission: 05/16/22 11:34 Admitting Physician: HAILEY ESTRADA Primary Care Provider: JOHANNA DAVIS V Allergies Allergies hydrocodone Adverse Reaction (Mild, Verified 05/15/22 15:17) Vomiting oxycodone Adverse Reaction (Mild, Verified 05/15/22 15:17) Vomiting Hospital Summary - Hospital Course Hospital Course: patient admitted with cough and shortness of breath, covid + treated with remdesivir and decadron, on warfarin. doing well and on room air at time of discharge. started on po abx due to infiltrate but likely viral. home today - Vitals & Intake/Output Vital Signs: Vital Signs Temperature 97.3 F 05/20/22 07:05 Pulse Rate 77 05/20/22 09:29 Respiratory Rate 22 05/20/22 09:29 Blood Pressure 132/74 05/20/22 07:05 O2 Sat by Pulse Oximetry 96 05/20/22 09:29 Intake & Output: Intake & Output 05/17/22 05/18/22 05/19/22 05/20/22 11:59 11:59 11:59 11:59 Intake Total 2821 1540 2410 1380 Balance 2821 1540 2410 1380 Weight 77.2 kg - Lab Result Diagrams: 05/20/22 06:07 05/20/22 06:07 Lab Results-Last 24 Hrs: Lab Results-Last 24 Hours 05/20/22 05/20/22 05/20/22 Range/Units 06:07 06:07 06:07 WBC 10.2 (4.0-10.5) x10^3/uL RBC 3.96 L (4.1-5.4) x10^6/uL Hgb 11.6 L (12.0-16.0) g/dL Hct 35.3 (35-47) % MCV 89.1 (78-100) fL MCH 29.3 (26-32) pg MCHC 32.9 (32-36) g/dL RDW 15.1 H (11.5-14.0) % Plt Count 310 (150-450) x10^3/uL MPV 11.2 H (7.5-11.0) fL Gran % 75.2 H (36.0-66.0) % Immature Gran % (Auto) 1.9 H (0.00-0.4) % Nucleat RBC Rel Count 0.0 (0.00-0.1) % Eos # (Auto) 0 (0-0.5) x10^3/uL Immature Gran # (Auto) 0.19 H (0.00-0.03) x10^3u/L Absolute Lymphs (auto) 1.84 (1.0-4.6) x10^3/uL Absolute Monos (auto) 0.47 (0.0-1.3) x10^3/uL Absolute Nucleated RBC 0.00 (0.00-0.01) x10^3u/L Lymphocytes % 18.1 L (24.0-44.0) % Monocytes % 4.6 (0.0-12.0) % Eosinophils % 0.0 (0.00-5.0) % Basophils % 0.2 (0.0-0.4) % Absolute Granulocytes 7.65 H (1.4-6.9) x10^3/uL Basophils # 0.02 (0-0.4) x10^3/uL PT 25.9 H (9.4-12.5) SECONDS INR 2.67 (0.8-3.0) Sodium 141 (137-145) mmol/L Potassium 3.9 (3.5-5.1) mmol/L Chloride 112 H (98-107) mmol/L Carbon Dioxide 24 (22-30) mmol/L Anion Gap 9.5 (5-15) MEQ/L BUN 33 H (7-17) mg/dL Creatinine 1.02 (0.52-1.04) mg/dL Estimated GFR 57.6 ML/MIN Glucose 143 H (74-106) mg/dL Calcium 8.2 L (8.4-10.2) mg/dL Micro Results-Entire Visit: Microbiology 05/15/22 11:10 Blood Culture Gram Stain - Final Blood Not Reportable Blood Culture - Final NO GROWTH 05/15/22 11:01 Blood Culture Gram Stain - Final Blood Not Reportable Blood Culture - Final NO GROWTH - Procedures and Test Procedures and Tests throughout Hospitalization: Therapy Orders & Screens 05/15/22 14:13 Respiratory Therapy Assessment DAILY Comment: 05/15/22 14:37 Respiratory Therapy Consult ROUTINE Comment: Reason For Exam: 05/15/22 20:31 Incentive Spirometry UD Comment: Diagnosis: COVID, SOB 05/17/22 08:44 Oxygen Oxymask LPM 2 lpm Comment: Diagnosis: COVID, SOB Discharge Exam General Appearance: no apparent distress Neurologic Exam: alert, oriented x 3 Respiratory Exam: normal breath sounds, lungs clear, No respiratory distress Cardiovascular Exam: regular rate/rhythm, normal heart sounds Gastrointestinal/Abdomen Exam: soft, No tenderness, No mass Final Diagnosis/Problem List - Final Discharge Diagnosis/Problem (1) COVID Current Visit: Yes Status: Acute Assessment & Plan: lungs clear, oxygenation normal. no distress and tolerating po intake Code(s): U07.1 - COVID-19 (2) Pneumonia Current Visit: Yes Status: Acute Code(s): J18.9 - PNEUMONIA, UNSPECIFIED ORGANISM (3) Hx of deep venous thrombosis Current Visit: Yes Status: Chronic Code(s): Z86.718 - PERSONAL HISTORY OF OTHER VENOUS THROMBOSIS AND EMBOLISM - Discharge Disposition: Home, Self-Care Condition: Stable Prescriptions: New Amoxicillin/Potassium Clav [Augmentin 500-125 Tablet] 1 each PO BID #14 tabl et Continue Atorvastatin Calcium 80 mg PO DAILY Tramadol HCl 50 mg PO DAILY PRN PRN Reason: Pain Paroxetine Mesylate 12.5 mg PO DAILY Warfarin Sodium 4 mg PO DAILY Sennosides [Senna] 1 tab PO BID Acetaminophen 500 mg [Tylenol Extra Strength 500 mg] 1,000 mg PO Q6H PRN PRN Reason: Pain Instructions: Remdesivir Follow up with: JOHANNA DAVIS MD [Primary Care Provider] -
== END 2022-05-20 10:36 | disposition home or self-care (01) | DRG 177 ==
LOC: ED 09:59 → MED SURG 14:35 → OBSVTOIN 05-16 11:34
PROVIDERS: ADMIT Family Medicine; ATTEND Family Medicine
DX: U07.1 COVID-19 (principal); J18.9 Pneumonia, unspecified organism; N17.9 Acute kidney failure, unspecified; E78.5 Hyperlipidemia, unspecified; R53.1 Weakness; Z79.01 Long term (current) use of anticoagulants; Z79.899 Other long term (current) drug therapy; Z85.048 Personal history of other malignant neoplasm of rectum, rectosigmoid junction, and anus; Z86.718 Personal history of other venous thrombosis and embolism
CPT/HCPCS: 0241U; 36000; 36415; 71045; 71260; 80048; 80053; 83880; 84484; 85025; 85379; 85610; 85730; 87040; 93005; 93041; 93268; 94640; 94760; 94762; 96374; 99285; G0378; J0248; J0456; J0696; J1100; J1940; A9270-GY

== ENCOUNTER 2022-07-25 03:55 | Emergency (ER) | payer MEDICARE, OTHER ==
--- NOTE | 2022-07-25 05:12 | ERPHSYRPT ---
- History of Present Illness Source: patient Exam Limitations: no limitations Patient Subjective Stated Complaint: pt states she has been having pain in her rt forearm. she has hx of blood clots in her subclavian in the past. off of coumadin for procedure- started lovenox 80mg bid on 07/22 Triage Nursing Assessment: pt alert and oriented, answers questions approp.pt ambulates into room with steady gait noted. respirations nonlabored. skin warm and dry. mild swelling noted to rt forearm. pt reorts tenderness to rt hand and rt forearm. bruising noted to outer aspect of rt wrist- pt denies injury. cap refill wnl. radial pulse wnl. Occurred: days ago Method of Injury: other (No injury) Quality: aching Severity of Pain-Max: mild (To moderate) Severity of Pain-Current: mild (To moderate) Extremities Pain Location: arm: right, elbow: right, forearm: right, wrist: right, hand: right Modifying Factors: Improves With: movement Associated Symptoms: none Hx Tetanus, Diphtheria Vaccination/Date Given: Yes Hx Influenza Vaccination/Date Given: Yes Hx Pneumococcal Vaccination/Date Given: Yes Immunizations Up to Date: Yes <APURVA ZHOU - Last Filed: 07/25/22 06:40> <CRISTIAN BOLTON - Last Filed: 07/25/22 10:26> - History of Present Illness Time Seen by Provider: 07/25/22 04:25 Physician History: This is a 66-year-old right handed white female who has a history of recurrent DVTs and is taking warfarin. Patient has a colonoscopy scheduled for 07/27/2022. On 07/21/2022 the patient switched over from oral warfarin to Lovenox subcutaneously. In the last few days she has noticed increasing swelling and pain in her right upper extremity. She has had subclavian vein clots in the past and is concerned she has it again. Patient is taking iron for chronic anemia and has hyperlipidemia. (APURVA ZHOU) Allergies/Adverse Reactions: hydrocodone Adverse Reaction (Mild, Verified 07/25/22 04:31) Vomiting oxycodone Adverse Reaction (Mild, Verified 07/25/22 04:31) Vomiting Home Medications: Atorvastatin Calcium 80 mg PO HS 11/13/17 [History] Paroxetine Mesylate 12.5 mg PO DAILY 11/13/17 [History] Tramadol HCl 50 mg PO DAILY PRN 11/13/17 [History] Warfarin Sodium 4 mg PO DAILY 11/13/17 [History] Alendronate Sodium 35 mg PO WEEKLY 07/25/22 [History] Enoxaparin Sodium [Enoxaparin Sodium] 80 mg SQ BID 07/25/22 [History] Ferrous Sulfate 325 mg [Feosol 325 mg] 325 mg PO BID 07/25/22 [History] Travel Risk - International Travel Have you traveled outside of the country in past 3 weeks: No - Coronavirus Screening Are you exhibiting any of the following symptoms?: No Close contact with a COVID-19 positive Pt in past 14-21 Days: No - Vaccine Status Have you recieved a Covid-19 vaccination: Yes 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: [employer] - Vaccination Dates Date of 2cond Vaccination (if applicable): 07/07/20 <APURVA ZHOU - Last Filed: 07/25/22 06:40> - Review of Systems Constitutional: No Symptoms Eyes: No Symptoms Ears, Nose, & Throat: No Symptoms Respiratory: No Symptoms Cardiac: No Symptoms Abdominal/Gastrointestinal: No Symptoms Genitourinary Symptoms: No Symptoms Musculoskeletal: Other (Right upper extremity pain and swelling) Skin: No Symptoms Neurological: No Symptoms Psychological: No Symptoms Endocrine: No Symptoms Hematologic/Lymphatic: No Symptoms Immunological/Allergic: No Symptoms All Other Systems: Reviewed and Negative <APURVA ZHOU - Last Filed: 07/25/22 06:40> - Past Medical History Pertinent Past Medical History: Yes Neurological History: Migraines, TIA ENT History: Cataracts Cardiac History: Deep Vein Thrombosis, High Cholesterol Respiratory History: Asthma Endocrine Medical History: No Pertinent History Musculoskeletal History: Other GI Medical History: Colorectal Cancer History: No Pertinent History Psycho-Social History: No Pertinent History Female Reproductive Disorders: No Pertinent History Other Medical History: 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 osteopenia. cluster headaches - Past Surgical History Past Surgical History: Yes Neuro Surgical History: No Pertinent History Cardiac: Other Respiratory: No Pertinent History Gastrointestinal: Colon Resection, Exploratory Laparoscopy, Other Genitourinary: No Pertinent History Musculoskeletal: Other Female Surgical History: Hysterectomy Other Surgical History: CVL port in & out, nuclear medicine stress test several years ago, ostomy placement and reversal, pt states surgery for both shoulders, "frozen shoulders" - Social History Smoking Status: Former smoker How long have you smoked: 44 yrs Exposure to second hand smoke: No Drug Use: none Patient Lives Alone: No () <APURVA ZHOU - Last Filed: 07/25/22 06:40> - Physical Exam General Appearance: no apparent distress, alert, anxiety Eyes, Ears, Nose, Throat Exam: normal ENT inspection, moist mucous membranes Neck Exam: normal inspection, non-tender, supple, full range of motion Cardiovascular/Respiratory Exam: chest non-tender, regular rate/rhythm, heart sounds normal, no respiratory distress Abdominal Exam: non-tender Back Exam: normal inspection, normal range of motion, No CVA tenderness Shoulder Exam: normal inspection, non-tender, no evidence of injury, normal ROM Elbow/Forearm Exam: normal inspection, non-tender, no evidence of injury, normal ROM, soft tissue tenderness, swelling Wrist Exam: normal inspection, non-tender, no evidence of injury, normal ROM, soft tissue tenderness, swelling Hand Exam: normal inspection, non-tender, no evidence of injury, normal ROM, soft tissue tenderness, swelling Neuro/Tendon Exam: normal sensation, normal motor functions, normal tendon functions Mental Status Exam: alert, oriented x 3, cooperative Skin Exam: normal color, warm, dry SpO2 Interpretation: normal SpO2: 97 O2 Delivery: Room Air <APURVA ZHOU - Last Filed: 07/25/22 06:40> - Nursing Vital Signs Nursing Vital Signs: Initial Vital Signs Temperature 97.8 F 07/25/22 04:07 Pulse Rate 83 07/25/22 04:07 Respiratory Rate 16 07/25/22 04:07 Blood Pressure 177/77 07/25/22 04:07 O2 Sat by Pulse Oximetry 97 07/25/22 04:07 Pain Scale Pain Intensity 5 - Course Nursing assessment & vital signs reviewed: Yes <APURVA ZHOU - Last Filed: 07/25/22 06:40> - CT Exams Upper Extremity CT Interpretation: Tele-radiologist Report (Normal CTA right upper extremity. Incidentaloma right lung dependent atelectasis and pulmonary emphysema) - Radiology Ultrasound Exam Venous Upper Extremity Ultrasound: tele radiology report (Right upper extremity negative for venous thrombosis.) <CRISTIAN BOLTON - Last Filed: 07/25/22 10:26> Ordered Tests: Active Orders 24 hr Category Date Time Status IV Insertion STAT Care 07/25/22 05:22 Active CTA UPPER EXTREMITY W/CONTRAST [CT] Stat Exams 07/25/22 09:00 Completed VENOUS UNILAT/LIMITED EXTREMIT [US] Stat Exams 07/25/22 06:39 Completed CBC W DIFF Stat Lab 07/25/22 05:47 Completed CK (IN-HOUSE) [CK-Creatinine Phosphokinase] Stat Lab 07/25/22 09:03 Completed CMP Stat Lab 07/25/22 05:47 Completed PROTIME WITH INR Stat Lab 07/25/22 05:47 Completed PTT Stat Lab 07/25/22 05:47 Completed Medication Summary Discontinued Medications Generic Name Dose Route Start Last Admin Trade Name Freq PRN Reason Stop Dose Admin Hydromorphone HCl 0.5 mg 07/25/22 05:22 07/25/22 06:01 Hydromorphone 1 Mg/1ml Inj 1 Mg/Ml Syringe IV 07/25/22 05:23 0.5 mg STAT ONE Administration Hydromorphone HCl Confirm 07/25/22 05:58 Hydromorphone 1 Mg/1ml Inj 1 Mg/Ml Syringe Administered 07/25/22 05:59 Dose 1 mg .ROUTE .STK-MED ONE Morphine Sulfate 4 mg 07/25/22 09:09 07/25/22 09:15 Morphine Sulfate 4 Mg/Ml Injection IV 07/25/22 09:10 4 mg STAT ONE Administration Morphine Sulfate Confirm 07/25/22 09:14 Morphine Sulfate 4 Mg/Ml Injection Administered 07/25/22 09:15 Dose 4 mg .ROUTE .STK-MED ONE Ondansetron HCl 4 mg 07/25/22 05:22 07/25/22 06:01 Ondansetron Hcl 4 Mg/2 Ml Vial IV 07/25/22 05:23 4 mg STAT ONE Administration Ondansetron HCl Confirm 07/25/22 05:57 Ondansetron Hcl 4 Mg/2 Ml Vial Administered 07/25/22 05:58 Dose 4 mg .ROUTE .STK-MED ONE Lab/Rad Data: Laboratory Result Diagrams 07/25/22 05:47 07/25/22 05:47 Laboratory Results 07/25/22 07/25/22 07/25/22 Range/Units 09:10 09:03 05:47 WBC (4.0-10.5) x10^3/uL RBC (4.1-5.4) x10^6/uL Hgb (12.0-16.0) g/dL Hct (35-47) % MCV (78-100) fL MCH (26-32) pg MCHC (32-36) g/dL RDW (11.5-14.0) % Plt Count (150-450) x10^3/uL MPV (7.5-11.0) fL Gran % (36.0-66.0) % Immature Gran % (Auto) (0.00-0.4) % Nucleat RBC Rel Count (0.00-0.1) % Eos # (Auto) (0-0.5) x10^3/uL Immature Gran # (Auto) (0.00-0.03) x10^3u/L Absolute Lymphs (auto) (1.0-4.6) x10^3/uL Absolute Monos (auto) (0.0-1.3) x10^3/uL Absolute Nucleated RBC (0.00-0.01) x10^3u/L Lymphocytes % (24.0-44.0) % Monocytes % (0.0-12.0) % Eosinophils % (0.00-5.0) % Basophils % (0.0-0.4) % Absolute Granulocytes (1.4-6.9) x10^3/uL Basophils # (0-0.4) x10^3/uL PT 16.3 H (9.4-12.5) SECONDS INR 1.54 (0.8-3.0) APTT 48.4 H (25.1-36.5) SECONDS Sodium (137-145) mmol/L Potassium (3.5-5.1) mmol/L Chloride (98-107) mmol/L Carbon Dioxide (22-30) mmol/L Anion Gap (5-15) MEQ/L BUN (7-17) mg/dL Creatinine (0.52-1.04) mg/dL Estimated GFR ML/MIN Glucose (74-106) mg/dL Calcium (8.4-10.2) mg/dL Total Bilirubin (0.2-1.3) mg/dL AST (14-36) U/L ALT (0-35) U/L Alkaline Phosphatase (38-126) U/L Creatine Kinase 158 H (30-135) U/L Serum Total Protein (6.3-8.2) g/dL Albumin (3.5-5.0) g/dL Influenza Type A Ag NEGATIVE (NEGATIVE) Influenza Type B Ag NEGATIVE (NEGATIVE) RSV (PCR) NEGATIVE (NEGATIVE) SARS-CoV-2 (PCR) NEGATIVE (NEGATIVE) 07/25/22 07/25/22 Range/Units 05:47 05:47 WBC 8.7 (4.0-10.5) x10^3/uL RBC 4.28 (4.1-5.4) x10^6/uL Hgb 12.7 (12.0-16.0) g/dL Hct 42.4 (35-47) % MCV 99.1 (78-100) fL MCH 29.7 (26-32) pg MCHC 30.0 L (32-36) g/dL RDW 15.3 H (11.5-14.0) % Plt Count 224 (150-450) x10^3/uL MPV 11.5 H (7.5-11.0) fL Gran % 61.8 (36.0-66.0) % Immature Gran % (Auto) 0.2 (0.00-0.4) % Nucleat RBC Rel Count 0.0 (0.00-0.1) % Eos # (Auto) 0.23 (0-0.5) x10^3/uL Immature Gran # (Auto) 0.02 (0.00-0.03) x10^3u/L Absolute Lymphs (auto) 2.27 (1.0-4.6) x10^3/uL Absolute Monos (auto) 0.72 (0.0-1.3) x10^3/uL Absolute Nucleated RBC 0.00 (0.00-0.01) x10^3u/L Lymphocytes % 26.2 (24.0-44.0) % Monocytes % 8.3 (0.0-12.0) % Eosinophils % 2.7 (0.00-5.0) % Basophils % 0.8 (0.0-0.4) % Absolute Granulocytes 5.35 (1.4-6.9) x10^3/uL Basophils # 0.07 (0-0.4) x10^3/uL PT (9.4-12.5) SECONDS INR (0.8-3.0) APTT (25.1-36.5) SECONDS Sodium 143 (137-145) mmol/L Potassium 3.9 (3.5-5.1) mmol/L Chloride 110 H (98-107) mmol/L Carbon Dioxide 21 L (22-30) mmol/L Anion Gap 15.4 H (5-15) MEQ/L BUN 12 (7-17) mg/dL Creatinine 1.00 (0.52-1.04) mg/dL Estimated GFR 59.0 ML/MIN Glucose 121 H (74-106) mg/dL Calcium 8.8 (8.4-10.2) mg/dL Total Bilirubin 0.40 (0.2-1.3) mg/dL AST 58 H (14-36) U/L ALT 47 H (0-35) U/L Alkaline Phosphatase 148 H (38-126) U/L Creatine Kinase (30-135) U/L Serum Total Protein 7.5 (6.3-8.2) g/dL Albumin 4.3 (3.5-5.0) g/dL Influenza Type A Ag (NEGATIVE) Influenza Type B Ag (NEGATIVE) RSV (PCR) (NEGATIVE) SARS-CoV-2 (PCR) (NEGATIVE) - Progress Progress: unchanged Counseled pt/family regarding: lab results, diagnosis <APURVA ZHOU - Last Filed: 07/25/22 06:40> <CRISTIAN BOLTON - Last Filed: 07/25/22 10:26> - Progress Progress Note: 07/25/22 06:41 I am transferring care of this patient to Dr. Cristian Bolton at shift change. He will follow-up on pending radiographic studies and make final disposition. (APURVA ZHOU) Patient endorsed Dr. Bolton at approximately [address] Bolton advised to follow-up on pending ultrasound of upper extremity. Patient 66-year-old female presents to our ED for evaluation of arm swelling. Patient currently transitioning from warfarin to Lovenox. Laboratory work-up essentially nonremarkable. Significant past medical history is blood clots. Patient has no other complaints. No chest pain or shortness of breath. No nausea vomiting or diaphoresis. Complexity of problem is moderate. New with uncertain prognosis. Patient advised staff that the pain in her right upper extremity is worsening. Ultrasound report pending. Patient reassessed. I am concerned for possible limb ischemia. Radial pulse diminished versus the contralateral side. Cap refill still present. Verbal report from corporate compliance director states there is no obvious blood clot but there is increased flow observed in the subclavian artery. I am concerned that there may be a partial obstruction causing increased flow in this artery. I am concerned that this partial obstruction may be converting into a complete obstruction. We are contacting a vascular surgeon at this time to advise. In the meantime we will order a CTA to try to confirm our suspicion/diagnosing underlying pathology 07/25/22 08:52 Case discussed with radiology department. They assisted in entering the correct order to assess for possible arterial occlusion right upper extremity. CTA upper extremity ordered. Radiology understands as a stat meeting study. 07/25/22 09:01 Case discussed with our general surgeon on-call. He advises transferring patient to outside facility with vascular surgery. Our staff is contacted [facility]. [facility] has interventional radiology as well as vascular surgery immediately available. 07/25/22 09:04 CK ordered to assess for possible rhabdomyolysis 07/25/22 09:[address] Estevez vascular surgeon at [facility] who states patient should be transferred to [facility] in [place]. We are currently contacting [facility] to arrange transport 07/25/22 09:08 Right upper extremity CTA is negative for arterial occlusion. Ultrasound negative for DVT. Clinically patient has diminished pulses of the right upper extremity. The reason for this finding is unclear. Possible evolving vascular etiology. We will transfer patient to [facility] for further evaluation and treatment. Case discussed with who accepts transfer to [facility] emergency department 07/25/22 10:20 07/25/22 10:21 Complexity of problems addressed is moderate. New diagnosis with uncertain prognosis. Complexity of data reviewed and analyzed is moderate. Patient served as indepe ndent historian. Management options discussed with outside provider. Test ordered. Test reviewed. Risk of complication and or morbidity/mortality of patient management is low. Patient currently on Lovenox. No additional anticoagulation administered. Patient's last dose of Lovenox was 5 hours ago. Patient will be transferred to [facility] for further evaluation and treatment. Vital stable Plan of care discussed with patient. She agrees to transfer to [facility] for further evaluation and treatment. Portions of this note were created with voice recognition technology. There may be grammatical, spelling, punctuation or sound alike errors (CRISTIAN BOLTON) Medical Desision Making - Independent Historian Additional History obtained from: Spouse - Discussion of managment Reviewed:: Test results Agreed on:: Treatment plan <APURVA ZHOU - Last Filed: 07/25/22 06:40> - Departure Departure Disposition: Home Critical Care Time: No <APURVA ZHOU - Last Filed: 07/25/22 06:40> <CRISTIAN BOLTON - Last Filed: 07/25/22 10:26> - Departure Clinical Impression: Swelling of right upper extremity Condition: Stable Referrals: JOHANNA DAVIS MD [Primary Care Provider] - Follow up/PCP as directed
[2022-07-25] MEDS ORDERED: Zofran 4 MG/2 ML VIAL IV ONE (05:22)
[2022-07-25] MEDS ORDERED: Hydromorphone 1 mg/ml Injection IV ONE (05:22)
[2022-07-25 05:51] LABS: Absolute Neutrophil Ct (ANC) 5.35 x10^3/uL (1.4-6.9); BASOPHIL % 0.8 % (0.0-0.4); Basophil (Absolute #) 0.07 x10^3/uL (0-0.4); Eosinophil % 2.7 % (0.00-5.0); Eosinophil (Absolute #) 0.23 x10^3/uL (0-0.5); Hematocrit 42.4 % (35-47); Hemoglobin 12.7 g/dL (12.0-16.0); IMMATURE GRAN # 0.02 x10^3u/L (0.00-0.03); IMMATURE GRAN % 0.2 % (0.00-0.4); Lymphocyte (Absolute #) 2.27 x10^3/uL (1.0-4.6); Lymphocytes % 26.2 % (24.0-44.0); Mean Cell Volume 99.1 fL (78-100); Mean Corpuscular Hemoglobin 29.7 pg (26-32); Mean Platelet Volume 11.5 fL (7.5-11.0); Monocyte (Absolute #) 0.72 x10^3/uL (0.0-1.3); Monocytes % 8.3 % (0.0-12.0); Neutrophil % 61.8 % (36.0-66.0); Platelet Count 224 x10^3/uL (150-450); Red Blood Count 4.28 x10^6/uL (4.1-5.4); Red Cell Distribution Width 15.3 % (11.5-14.0); White Blood Count 8.7 x10^3/uL (4.0-10.5)
[2022-07-25] MEDS ORDERED: Zofran 4 MG/2 ML VIAL ONE (05:57)
[2022-07-25] MEDS ORDERED: Hydromorphone 1 mg/ml Injection ONE (05:58)
[2022-07-25 06:04] LABS: ALBUMIN 4.3 g/dL (3.5-5.0); ANION GAP 15.4 MEQ/L (5-15); BILIRUBIN,TOTAL 0.4 mg/dL (0.2-1.3); Calcium 8.8 mg/dL (8.4-10.2); Potassium 3.9 mmol/L (3.5-5.1); Total Protein 7.5 g/dL (6.3-8.2)
[2022-07-25 06:05] LABS: INR 1.54 (0.8-3.0); PROTIME 16.3 SECONDS (9.4-12.5); PTT 48.4 SECONDS (25.1-36.5)
--- NOTE | 2022-07-25 08:53 | XRAY ---
Indication: Right arm pain. Two-dimensional sonogram and color Doppler imaging of the major venous vessels of the right upper extremity performed. Comparison: None Visualized right jugular, subclavian, axillary, basilic, brachial, median cubital, cephalic, radial, and ulnar veins are negative for thrombosis. Veins demonstrate normal compressibility and normal venous waveforms. Impression: Right upper extremity negative for venous thrombosis.
[2022-07-25] MEDS ORDERED: MORPHINE SULFATE 4 MG INJ IV ONE (09:09)
[2022-07-25] MEDS ORDERED: MORPHINE SULFATE 4 MG INJ ONE (09:14)
[2022-07-25 09:55] LABS: INFLUENZA A NEGATIVE (NEGATIVE); INFLUENZA B NEGATIVE (NEGATIVE); RESPIRATORY SYNCTIAL VIRUS NEGATIVE (NEGATIVE); SARS-CoV-2 Xpert Express NEGATIVE (NEGATIVE)
--- NOTE | 2022-07-25 09:55 | XRAY ---
Indication: Pain. Conventional CTA right upper extremity performed using 100 cc Isovue 370 contrast. 2-D sagittal and coronal reformatted images obtained. Additional 3-D reformatted images obtained using a separate workstation. Comparison: None Normal CTA appearance to the aortic arch, great branches, right brachiocephalic, subclavian, axillary, brachial, radial, and ulnar arteries. Visualized right lung demonstrates dependent atelectasis and pulmonary emphysema. Remaining visualized noncontrasted soft tissues are unremarkable. No acute fracture, dislocation, or suspicious bony lesions. Impression: 1. Normal CTA right upper extremity. 2. Incidental right lung dependent atelectasis and pulmonary emphysema.
[2022-07-25 10:09] VITALS: BP 134/80; PULSE 85; O2SAT 99
== END 2022-07-25 10:57 | disposition home or self-care (01) ==
LOC: ED 03:55
DX: M79.89 Other specified soft tissue disorders (principal); R09.89 Other specified symptoms and signs involving the circulatory and respiratory systems; M79.601 Pain in right arm; Z86.718 Personal history of other venous thrombosis and embolism; E78.5 Hyperlipidemia, unspecified; Z79.01 Long term (current) use of anticoagulants; Z79.899 Other long term (current) drug therapy; Z20.828 Contact with and (suspected) exposure to other viral communicable diseases
CPT/HCPCS: 0241U; 36000; 36415; 73206; 80053; 82550; 85025; 85610; 85730; 93971; 96374; 96375; 99285; J1170; J2270; J2405

== ENCOUNTER 2022-10-26 18:11 | Emergency (ER) | payer MEDICARE, OTHER ==
--- NOTE | 2022-10-26 18:15 | ERPHSYRPT ---
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 Patient is no longer on antibiotic therapy. In the last 2-1/2 months the patient has had evidence of infectious fasciitis and under went multiple surgeries to clear this right upper extremity of infection. The patient states things were going well. However she noticed right upper extremity with redness and swelling in the area of the antecubital fossa. Patient contacted the [facility] on-call surgeon and they recommended the patient go to the emergency department for evaluation. They want to determine if the patient has a DVT in the right upper extremity or other medical/surgical issue requiring transfer to the patient to [place]. Patient is afebrile and she has no chills. Timing/Duration: day(s) (2 to 3 days) Severity: mild (To moderate) Associated Symptoms: chills, fever Allergies/Adverse Reactions: hydrocodone Adverse Reaction (Mild, Verified 07/25/22 04:31) Vomiting oxycodone Adverse Reaction (Mild, Verified 07/25/22 04:31) Vomiting Home Medications: Atorvastatin Calcium 80 mg PO HS 11/13/17 [History] Paroxetine Mesylate 12.5 mg PO DAILY 11/13/17 [History] Tramadol HCl 50 mg PO DAILY PRN 11/13/17 [History] Warfarin Sodium 4 mg PO DAILY 11/13/17 [History] Alendronate Sodium 35 mg PO WEEKLY 07/25/22 [History] Enoxaparin Sodium [Enoxaparin Sodium] 80 mg SQ BID 07/25/22 [History] Ferrous Sulfate 325 mg [Feosol 325 mg] 325 mg PO BID 07/25/22 [History] Hx Tetanus, Diphtheria Vaccination/Date Given: Yes Hx Influenza Vaccination/Date Given: Yes Hx Pneumococcal Vaccination/Date Given: Yes Travel Risk - International Travel Have you traveled outside of the country in past 3 weeks: No - Coronavirus Screening Are you exhibiting any of the following symptoms?: No Close contact with a COVID-19 positive Pt in past 14-21 Days: No - Vaccine Status Have you recieved a Covid-19 vaccination: Yes Client Service Executive: [employer] - Vaccination Dates Date of 2cond Vaccination (if applicable): 07/07/20 - Review of Systems Constitutional: No Symptoms Eyes: No Symptoms Ears, Nose, & Throat: No Symptoms Respiratory: No Symptoms Cardiac: No Symptoms Abdominal/Gastrointestinal: No Symptoms Genitourinary Symptoms: No Symptoms Musculoskeletal: No Symptoms Skin: Cellulitis (And swelling in the area of the right antecubital fossa) Neurological: No Symptoms Psychological: No Symptoms Endocrine: No Symptoms Hematologic/Lymphatic: No Symptoms Immunological/Allergic: No Symptoms All Other Systems: Reviewed and Negative - Past Medical History Pertinent Past Medical History: Yes Neurological History: Migraines, TIA ENT History: Cataracts Cardiac History: Deep Vein Thrombosis, High Cholesterol Respiratory History: Asthma Endocrine Medical History: No Pertinent History Musculoskeletal History: Other GI Medical History: Colorectal Cancer History: No Pertinent History Psycho-Social History: No Pertinent History Female Reproductive Disorders: No Pertinent History Other Medical History: 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 osteopenia. cluster headaches - Past Surgical History Past Surgical History: Yes Neuro Surgical History: No Pertinent History Cardiac: Other Respiratory: No Pertinent History Gastrointestinal: Colon Resection, Exploratory Laparoscopy, Other Genitourinary: No Pertinent History Musculoskeletal: Other Female Surgical History: Hysterectomy Other Surgical History: CVL port in & out, nuclear medicine stress test several years ago, ostomy placement and reversal, pt states surgery for both shoulders, "frozen shoulders" - Social History Smoking Status: Former smoker How long have you smoked: 44 yrs Exposure to second hand smoke: No Drug Use: none Patient Lives Alone: No () - Nursing Vital Signs Nursing Vital Signs: Initial Vital Signs Temperature 97.6 F 10/26/22 18:18 Pulse Rate 83 10/26/22 18:18 Respiratory Rate 20 10/26/22 18:18 Blood Pressure 105/67 10/26/22 18:18 O2 Sat by Pulse Oximetry 99 10/26/22 18:18 Pain Scale Pain Intensity 3 - Physical Exam General Appearance: no apparent distress, alert Eye Exam: PERRL/EOMI, eyes nml inspection Ears, Nose, Throat Exam: normal ENT inspection, moist mucous membranes Neck Exam: normal inspection, non-tender, supple, full range of motion Respiratory Exam: airway intact, No chest tenderness, No respiratory distress Gastrointestinal/Abdomen Exam: No tenderness Pelvic Exam: not done Rectal Exam: not done Back Exam: normal inspection, normal range of motion, No CVA tenderness, No vertebral tenderness Extremity Exam: normal range of motion, pelvis stable, inflammation (Right antecubital fossa), swelling (Right antecubital fossa) Neurologic Exam: alert, oriented x 3, cooperative, 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, normal mood/affect, nml cerebellar function, nml station & gait, sensation nml Skin Exam: other (Redness swelling right antecubital fossa) Lymphatic Exam: No adenopathy SpO2 Interpretation: normal O2 Delivery: Room Air - Course Nursing assessment & vital signs reviewed: Yes Ordered Tests: Active Orders 24 hr Category Date Time Status IV Insertion STAT Care 10/26/22 18:27 Active VENOUS UNILAT/LIMITED EXTREMIT [US] Stat Exams 10/26/22 18:28 Taken BLOOD CULTURE Stat Lab 10/26/22 19:10 Received CBC W DIFF Stat Lab 10/26/22 18:30 Completed CMP Stat Lab 10/26/22 18:30 Completed Lactic Acid Stat Lab 10/26/22 18:39 Completed PROTIME WITH INR Stat Lab 10/26/22 19:10 Completed Lab/Rad Data: Laboratory Result Diagrams 10/26/22 18:30 10/26/22 18:30 Laboratory Results 10/26/22 10/26/22 10/26/22 Range/Units 19:10 18:39 18:30 WBC (4.0-10.5) x10^3/uL RBC (4.1-5.4) x10^6/uL Hgb (12.0-16.0) g/dL Hct (35-47) % MCV (78-100) fL MCH (26-32) pg MCHC (32-36) g/dL RDW (11.5-14.0) % Plt Count (150-450) x10^3/uL MPV (7.5-11.0) fL Gran % (36.0-66.0) % Immature Gran % (Auto) (0.00-0.4) % Nucleat RBC Rel Count (0.00-0.1) % Eos # (Auto) (0-0.5) x10^3/uL Immature Gran # (Auto) (0.00-0.03) x10^3u/L Absolute Lymphs (auto) (1.0-4.6) x10^3/uL Absolute Monos (auto) (0.0-1.3) x10^3/uL Absolute Nucleated RBC (0.00-0.01) x10^3u/L Lymphocytes % (24.0-44.0) % Monocytes % (0.0-12.0) % Eosinophils % (0.00-5.0) % Basophils % (0.0-0.4) % Absolute Granulocytes (1.4-6.9) x10^3/uL Basophils # (0-0.4) x10^3/uL PT 20.1 H (9.4-12.5) SECONDS INR 1.94 (0.8-3.0) Sodium 142 (137-145) mmol/L Potassium 3.6 (3.5-5.1) mmol/L Chloride 108 H (98-107) mmol/L Carbon Dioxide 21 L (22-30) mmol/L Anion Gap 16.0 H (5-15) MEQ/L BUN 18 H (7-17) mg/dL Creatinine 0.95 (0.52-1.04) mg/dL Estimated GFR > 60.0 ML/MIN Glucose 90 (74-106) mg/dL Lactic Acid 1.0 (0.4-2.0) Calcium 9.2 (8.4-10.2) mg/dL Total Bilirubin 0.30 (0.2-1.3) mg/dL AST 25 (14-36) U/L ALT 18 (0-35) U/L Alkaline Phosphatase 127 H (38-126) U/L Serum Total Protein 7.8 (6.3-8.2) g/dL Albumin 4.1 (3.5-5.0) g/dL 10/26/22 Range/Units 18:30 WBC 8.3 (4.0-10.5) x10^3/uL RBC 4.45 (4.1-5.4) x10^6/uL Hgb 11.5 L (12.0-16.0) g/dL Hct 39.4 (35-47) % MCV 88.5 (78-100) fL MCH 25.8 L (26-32) pg MCHC 29.2 L (32-36) g/dL RDW 15.7 H (11.5-14.0) % Plt Count 427 (150-450) x10^3/uL MPV 10.8 (7.5-11.0) fL Gran % 56.0 (36.0-66.0) % Immature Gran % (Auto) 0.2 (0.00-0.4) % Nucleat RBC Rel Count 0.0 (0.00-0.1) % Eos # (Auto) 0.30 (0-0.5) x10^3/uL Immature Gran # (Auto) 0.02 (0.00-0.03) x10^3u/L Absolute Lymphs (auto) 2.66 (1.0-4.6) x10^3/uL Absolute Monos (auto) 0.64 (0.0-1.3) x10^3/uL Absolute Nucleated RBC 0.00 (0.00-0.01) x10^3u/L Lymphocytes % 31.9 (24.0-44.0) % Monocytes % 7.7 (0.0-12.0) % Eosinophils % 3.6 (0.00-5.0) % Basophils % 0.6 (0.0-0.4) % Absolute Granulocytes 4.67 (1.4-6.9) x10^3/uL Basophils # 0.05 (0-0.4) x10^3/uL PT (9.4-12.5) SECONDS INR (0.8-3.0) Sodium (137-145) mmol/L Potassium (3.5-5.1) mmol/L Chloride (98-107) mmol/L Carbon Dioxide (22-30) mmol/L Anion Gap (5-15) MEQ/L BUN (7-17) mg/dL Creatinine (0.52-1.04) mg/dL Estimated GFR ML/MIN Glucose (74-106) mg/dL Lactic Acid (0.4-2.0) Calcium (8.4-10.2) mg/dL Total Bilirubin (0.2-1.3) mg/dL AST (14-36) U/L ALT (0-35) U/L Alkaline Phosphatase (38-126) U/L Serum Total Protein (6.3-8.2) g/dL Albumin (3.5-5.0) g/dL - Progress Progress Note: 10/26/22 20:38 The weatherization technician performed a venous Doppler of the right upper extremity and there is no evidence of any DVT. This patient's medical issue is 1 of moderate complexity. The level complexity and the work-up performed is based on the review of the patient's past medical history, review of the patient's medication list, review of the patient's drug allergy list, history of present illness and physical findings on examination. The work-up in this patient includes a venous Doppler of the right upper extremity, CBC, CMP, lactic acid level. We obtained vital signs. I reviewed the above work-up results. Patient does not have a DVT in the right upper extremity. Her white count is normal. She has a normal lactic acid and a near normal anion gap level. She is afebrile. I do not feel that she needs to be transferred emergently to [place] for evaluation. Patient is to receive 1 g of Rocephin intravenously as well as oral Levaquin 500 mg x 1. I will then send a prescription for 7 days of Levaquin 500 mg once a day remotely to her pharmacy. Patient is to return to the emergency room tomorrow for reassessment. If it anytime her symptoms are worsening, she has been informed to go directly to the emergency department where her surgeon practices. Counseled pt/family regarding: lab results, diagnosis, need for follow-up, rad results Medical Desision Making - Independent Historian Additional History obtained from: Spouse - Diagnostic Testing Diagnostic test were ordered, analyzed, and reviewed by me: Yes Radiological Interpretation: Reviewed by me, Teleradiologist Report - Risk of complications The pt has a mod risk of morbidity or mortality based on: Need for prescription drug management - Departure Departure Disposition: Home Clinical Impression: Right arm cellulitis Condition: Stable Critical Care Time: No Referrals: JOHANNA DAVIS MD [Primary Care Provider] - Follow up/PCP as directed Additional Instructions: Return to the emergency department tomorrow late morning for reevaluation. If at anytime after this discharge, the symptoms are worsening, you need to go directly to the facility where your surgical procedure was performed. Take your antibiotics and other medication as prescribed. Call your surgeon's office on the morning of 10/29/2022 for further evaluation and management. Prescriptions: Levofloxacin [Levaquin 500 MG Tablet] 500 mg PO DAILY #7 tablet
[2022-10-26 18:52] LABS: Absolute Neutrophil Ct (ANC) 4.67 x10^3/uL (1.4-6.9); BASOPHIL % 0.6 % (0.0-0.4); Basophil (Absolute #) 0.05 x10^3/uL (0-0.4); Eosinophil % 3.6 % (0.00-5.0); Hematocrit 39.4 % (35-47); Hemoglobin 11.5 g/dL (12.0-16.0); IMMATURE GRAN # 0.02 x10^3u/L (0.00-0.03); IMMATURE GRAN % 0.2 % (0.00-0.4); Lymphocyte (Absolute #) 2.66 x10^3/uL (1.0-4.6); Lymphocytes % 31.9 % (24.0-44.0); Mean Cell Volume 88.5 fL (78-100); Mean Corpuscular Hemoglobin 25.8 pg (26-32); Mean Corpuscular Hgb Concent. 29.2 g/dL (32-36); Mean Platelet Volume 10.8 fL (7.5-11.0); Monocyte (Absolute #) 0.64 x10^3/uL (0.0-1.3); Monocytes % 7.7 % (0.0-12.0); Platelet Count 427 x10^3/uL (150-450); Red Blood Count 4.45 x10^6/uL (4.1-5.4); Red Cell Distribution Width 15.7 % (11.5-14.0); White Blood Count 8.3 x10^3/uL (4.0-10.5)
[2022-10-26 19:05] LABS: ALBUMIN 4.1 g/dL (3.5-5.0); ALKALINE PHOSPHATASE 127 U/L (38-126); BLOOD UREA NITROGEN 18 mg/dL (7-17); CHLORIDE 108 mmol/L (98-107); Calcium 9.2 mg/dL (8.4-10.2); Carbon Dioxide 21 mmol/L (22-30); Creatinine 1 0.95 mg/dL (0.52-1.04); EST GLOMERULAR FILTRATION RATE > 60.0 ML/MIN; Glucose 90 mg/dL (74-106); Potassium 3.6 mmol/L (3.5-5.1); SGOT/AST 25 U/L (14-36); SGPT/ALT 18 U/L (0-35); SODIUM 142 mmol/L (137-145); Total Protein 7.8 g/dL (6.3-8.2)
[2022-10-26 19:32] LABS: INR 1.94 (0.8-3.0); PROTIME 20.1 SECONDS (9.4-12.5)
[2022-10-26] MEDS ORDERED: Levofloxacin 500 MG Tablet PO ONE (20:37)
[2022-10-26] MEDS ORDERED: ROCEPHIN 1 Gm-D5w 50 ml Bag** 1 G/50 ML IVPB IV STA (20:37)
[2022-10-26] MEDS ORDERED: Levofloxacin 500 MG Tablet ONE (20:41)
[2022-10-26] MEDS ORDERED: ROCEPHIN 1 Gm-D5w 50 ml Bag** 1 G/50 ML IVPB IV ONE (20:42)
[2022-10-26] MEDS ORDERED: PERCOCET TABLET 5/325MG PO STA ×2 (20:52→20:55)
[2022-10-26] MEDS ORDERED: PERCOCET TABLET 5/325MG ONE (20:58)
[2022-10-26 21:26] VITALS: BP 144/76; PULSE 81; O2SAT 98
--- NOTE | 2022-10-26 22:36 | XRAY ---
Indication: Right upper extremity swelling and erythema. Postop. Open wounds. Two-dimensional sonogram and color Doppler imaging of the major venous vessels of the right upper extremity performed. Comparison: July 25, 2022 Visualize right internal jugular, subclavian, axillary, brachial, basilic, cephalic, radial, and ulnar veins are negative for thrombosis. Veins demonstrate normal compressibility and normal venous waveforms. Impression: Right upper extremity continues to be negative for venous thrombosis. Comment: Preliminary report was given.
== END 2022-10-26 21:29 | disposition home or self-care (01) ==
LOC: ED 18:11
DX: L03.113 Cellulitis of right upper limb (principal); E78.5 Hyperlipidemia, unspecified; Z79.01 Long term (current) use of anticoagulants; Z79.891 Long term (current) use of opiate analgesic; Z79.899 Other long term (current) drug therapy; R60.0 Localized edema
CPT/HCPCS: 36000; 36415; 80053; 83605; 85025; 85610; 87040; 93971; 96365; 99284; J0696; A9270-GY

== ENCOUNTER 2023-09-01 11:34 | Emergency (ER) | payer MEDICARE, OTHER ==
[2023-09-01 11:50] VITALS: TEMP 97.1
[2023-09-01] MEDS ORDERED: Sodium Chloride 0.9% 1000 ML 1,000 ML ONE (11:52)
[2023-09-01] MEDS: Sodium Chloride 0.9% 1000 ML 1,000 ML IV SCH (11:55)
--- NOTE | 2023-09-01 12:22 | ERPHSYRPT ---
- History of Present Illness Time Seen by Provider: 09/01/23 12:20 Source: patient, family Exam Limitations: no limitations Patient Subjective Stated Complaint: Pt had surgery 3 days ago to regain movement of right hand/fingers/arm and today she woke with blood in her bed and her bandages soaked with blood Triage Nursing Assessment: Pt brought to the ER by her mother, vitals wnl, rates arm pain as 6/10, blood coming from all 9 incision sites, pt is on a blood thinner, pt had a blood clot removed last year and the surgery this past week was to help regain movement in her hand and arm and fingers, pt has bruising on her lower abdomen from Lovenox injections and the area is warm to the touch, appears lethargic but answering questions well, no difficulty breathing Physician History: Pt had surgery 3 days ago to regain movement of right hand/fingers/arm and today she woke with blood in her bed and her bandages soaked with blood Timing/Duration: today Associated Symptoms: other (excessive bleeding from surgical wound) Allergies/Adverse Reactions: hydrocodone Adverse Reaction (Mild, Verified 09/01/23 11:50) Vomiting oxycodone Adverse Reaction (Mild, Verified 09/01/23 11:50) Vomiting Home Medications: Atorvastatin Calcium 80 mg PO HS 11/13/17 [History] Paroxetine Mesylate 25 mg PO DAILY 11/13/17 [History] Tramadol HCl 50 mg PO DAILY PRN 11/13/17 [History] Warfarin Sodium 4 mg PO DAILY 11/13/17 [History] Alendronate Sodium 35 mg PO WEEKLY 07/25/22 [History] Enoxaparin Sodium [Enoxaparin Sodium] 80 mg SQ BID 07/25/22 [History] Oxycodone HCl 5 mg Ir [Oxy-IR 5 MG] 5 mg PO QID PRN 09/01/23 [History] methylPREDNISolone [Methylprednisolone] 4 mg PO UD 09/01/23 [History] Hx Tetanus, Diphtheria Vaccination/Date Given: Yes Hx Influenza Vaccination/Date Given: Yes Hx Pneumococcal Vaccination/Date Given: Yes Immunizations Up to Date: Yes Travel Risk - International Travel Have you traveled outside of the country in past 3 weeks: No - Emerging Infectious Disease Are you exhibiting symptoms associated with any current EIDs: No - Review of Systems Constitutional: No Fever, No Chills Eyes: No Symptoms Ears, Nose, & Throat: No Symptoms Respiratory: No Cough, No Dyspnea Cardiac: No Chest Pain, No Edema, No Syncope Abdominal/Gastrointestinal: No Abdominal Pain, No Nausea, No Vomiting, No Diarrhea Genitourinary Symptoms: No Dysuria Musculoskeletal: No Back Pain, No Neck Pain Skin: No Rash Neurological: No Dizziness, No Focal Weakness, No Sensory Changes Psychological: No Symptoms Endocrine: No Symptoms Hematologic/Lymphatic: Easy Bleeding, Easy Bruising All Other Systems: Reviewed and Negative - Past Medical History Pertinent Past Medical History: Yes Neurological History: Migraines, TIA ENT History: Cataracts Cardiac History: Deep Vein Thrombosis, High Cholesterol Respiratory History: Asthma Endocrine Medical History: No Pertinent History Musculoskeletal History: Other GI Medical History: Colorectal Cancer History: No Pertinent History Psycho-Social History: No Pertinent History Female Reproductive Disorders: No Pertinent History Other Medical History: 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 osteopenia. cluster headaches - Past Surgical History Past Surgical History: Yes Neuro Surgical History: No Pertinent History Cardiac: Other Respiratory: No Pertinent History Gastrointestinal: Colon Resection, Exploratory Laparoscopy, Other Genitourinary: No Pertinent History Musculoskeletal: Other Female Surgical History: Hysterectomy Other Surgical History: CVL port in & out, nuclear medicine stress test several years ago, ostomy placement and reversal, pt states surgery for both shoulders, "frozen shoulders" - Social History Smoking Status: Former smoker How long have you smoked: 44 yrs Exposure to second hand smoke: No Drug Use: none Patient Lives Alone: No () - Nursing Vital Signs Nursing Vital Signs: Initial Vital Signs Temperature 97.1 F 09/01/23 11:38 Pulse Rate 74 09/01/23 11:38 Blood Pressure 136/70 09/01/23 11:38 O2 Sat by Pulse Oximetry 95 09/01/23 11:38 Pain Scale Pain Intensity 6 - Physical Exam General Appearance: no apparent distress, alert Eye Exam: PERRL/EOMI, eyes nml inspection Ears, Nose, Throat Exam: normal ENT inspection, TMs normal, pharynx normal, moist mucous membranes Neck Exam: normal inspection, non-tender, supple, full range of motion Respiratory Exam: normal breath sounds, lungs clear, No respiratory distress Cardiovascular Exam: regular rate/rhythm, normal heart sounds, normal peripheral pulses Gastrointestinal/Abdomen Exam: soft, normal bowel sounds, No tenderness, No mass Back Exam: normal inspection, normal range of motion, No CVA tenderness, No vertebral tenderness Extremity Exam: normal inspection, normal range of motion, pelvis stable, lacerations (surgical sutures, oozing bllod) Neurologic Exam: alert, oriented x 3, cooperative, normal mood/affect, nml cerebellar function, nml station & gait, sensation nml, No motor deficits Skin Exam: normal color, warm, dry, No rash Lymphatic Exam: No adenopathy SpO2 Interpretation: normal SpO2: 95 O2 Delivery: Room Air - Course Nursing assessment & vital signs reviewed: Yes Ordered Tests: Active Orders 24 hr Category Date Time Status BLOOD CULTURE Stat Lab 09/01/23 12:10 Received CBC W DIFF Stat Lab 09/01/23 12:10 Completed CMP Stat Lab 09/01/23 11:55 Completed PROTIME WITH INR Stat Lab 09/01/23 11:55 Completed PTT Stat Lab 09/01/23 11:55 Completed Medication Summary Generic Name Dose Route Start Last Admin Trade Name Freq PRN Reason Stop Dose Admin Sodium Chloride 1,000 mls @ 100 mls/hr 09/01/23 12:00 09/01/23 11:55 Sodium Chloride 0.9% 1000 Ml IV 10/01/23 11:59 100 mls/hr .Q10H SHEBA Administration Discontinued Medications Generic Name Dose Route Start Last Admin Trade Name Freq PRN Reason Stop Dose Admin Morphine Sulfate 6 mg 09/01/23 13:07 Morphine Sulfate 10 Mg/Ml Injection IV 09/01/23 13:08 STAT ONE Ondansetron HCl 4 mg 09/01/23 13:07 Ondansetron Hcl 4 Mg/2 Ml Vial IV 09/01/23 13:08 STAT ONE Lab/Rad Data: Laboratory Result Diagrams 09/01/23 12:10 09/01/23 11:55 Laboratory Results 09/01/23 09/01/23 09/01/23 Range/Units 12:10 11:55 11:55 WBC 9.6 (4.0-10.5) x10^3/uL RBC 3.51 L (4.1-5.4) x10^6/uL Hgb 9.8 L (12.0-16.0) g/dL Hct 31.6 L (35-47) % MCV 90.0 (78-100) fL MCH 27.9 (26-32) pg MCHC 31.0 L (32-36) g/dL RDW 16.2 H (11.5-14.0) % Plt Count 269 (150-450) x10^3/uL MPV 11.6 H (7.5-11.0) fL Gran % 68.1 H (36.0-66.0) % Immature Gran % (Auto) 0.4 (0.00-0.4) % Nucleat RBC Rel Count 0.0 (0.00-0.1) % Eos # (Auto) 0.01 (0-0.5) x10^3/uL Immature Gran # (Auto) 0.04 H (0.00-0.03) x10^3u/L Absolute Lymphs (auto) 2.40 (1.0-4.6) x10^3/uL Absolute Monos (auto) 0.61 (0.0-1.3) x10^3/uL Absolute Nucleated RBC 0.00 (0.00-0.01) x10^3u/L Lymphocytes % 24.9 (24.0-44.0) % Monocytes % 6.3 (0.0-12.0) % Eosinophils % 0.1 (0.00-5.0) % Basophils % 0.2 (0.0-0.4) % Absolute Granulocytes 6.54 (1.4-6.9) x10^3/uL Basophils # 0.02 (0-0.4) x10^3/uL PT 20.4 H (9.4-12.5) SECONDS INR 1.96 (0.8-3.0) APTT 40.0 H (25.1-36.5) SECONDS Sodium 142 (135-145) mmol/L Potassium 4.1 (3.5-5.1) mmol/L Chloride 106 (98-107) mmol/L Carbon Dioxide 28 (22-30) mmol/L Anion Gap 11.1 (5-15) MEQ/L BUN 25 H (7-17) mg/dL Creatinine 1.39 H (0.52-1.04) mg/dL Estimated GFR 41.6 ML/MIN Glucose 117 H (74-106) mg/dL Calcium 9.1 (8.4-10.2) mg/dL Total Bilirubin 0.30 (0.2-1.3) mg/dL AST 35 (14-36) U/L ALT 28 (0-35) U/L Alkaline Phosphatase 128 H (38-126) U/L Serum Total Protein 7.2 (6.3-8.2) g/dL Albumin 4.1 (3.5-5.0) g/dL - Progress Progress: improved Progress Note: 09/01/23 13:09 Pressure dressing was applied on her hand where she has recently surgery done. Patient is advised to stop Coumadin and heparin shots for today she is advised to check her PT/INR tomorrow and then advised to follow accordingly how much Coumadin she has to take. She is also advised to stop her heparin injection completely. Counseled pt/family regarding: lab results, diagnosis, need for follow-up Medical Desision Making - Independent Historian Additional History obtained from: Spouse - Diagnostic Testing Diagnostic test were ordered, analyzed, and reviewed by me: Yes Radiological Interpretation: Interpreted by me, Reviewed by me - Risk of complications The pt has a mod risk of morbidity or mortality based on: Need for prescription drug management - Departure Departure Disposition: Home Clinical Impression: Coagulation disorder, Bleeding risk due to Coumadin and aspirin, Postoperative wound hemorrhage Condition: Stable Critical Care Time: Yes Critical Care Time(excluding separately billable procedures): Critical 30-74 mins Referrals: JOHANNA DAVIS MD [Primary Care Provider] - Follow up/PCP as directed Instructions: Bleeding After Surgery, Wound Care (DC), Bleeding Precautions Additional Instructions: Hold your Coumadin and heparin shots for today get your PT and INR checked tomorrow. According to that readings follow Coumadin dose. Stop heparin injection completely. Follow-up with your primary care physician as well as surgeon within the next 2 days. If your bleeding continues come back to the emergency room or if you have a blood in your stool or urine come back to the emergency room. Discharge/Care Plan ANGEL ALVAREZ was seen on 09/01/23 in the Emergency Room. The patient was co unseled regarding Diagnosis,Lab results, Imaging studies, need for follow up and when to return to the Emergency Room. Prescriptions given: Discharge Note I have spoken with the patient and/or caregivers. I have explained the patient's condition, diagnosis and treatment plan based on the information available to me at this time. I have answered the patient's and/or caregiver's questions and addressed any concerns. The patient and/or caregivers have as good understanding of the patient's diagnosis, condition and treatment plan as can be expected at this point. The vital signs have been stable. The patient's condition is stable and appropriate for discharge from the emergency department. The patient will pursue further outpatient evaluation with the primary care physician or other designated or consulting physician as outlined in the discharge instructions. The patient and/or caregivers are agreeable to this plan of care and follow-up instructions have been explained in detail. The patient and/or caregivers have received these instruction. The patient/and or caregivers are aware that any significant change in condition or worsening of symptoms should prompt an immediate return to this or the closest emergency department or call 911. ANGEL ALVAREZ was seen on 09/01/23 n the Emergency Room. At that time you were treated for an emergent condition, during your visit Laboratory, Radiology and/or other procedures may have been ordered. It is very important that you follow-up with your Primary Care Physician JOHANNA DAVIS V within the next 24-48 hours to review your Emergency Room visit and the final results of testing that was ordered. Some test results such as Urine Cultures, Blood Cultures, and other cultures if ordered will not be finalized for 24-48 hours. If you do not have a Primary Care Provider please call the medical records department at [phone] ext [phone] to obtain a copy of your results or you may sign into our patient portal to obtain these results by visiting us @ [email or web address] and completing the following steps: 1. Click on the Patient Portal link 2. Click the Patient Self Enrollment Link to complete the enrollment form and entering your 3. Once the enrollment form is completed you will receive an email with a temporary ID and password at the email address you provided. 4. Next choose a user name and password. Your user name must be at least 4 characters long and your password must be at least 4 characters long. 5. Choose a security question from the list and provide your answer to the question. If you already have signed into the Health Portal you may access your Health Care Information 12/11 by the following steps: 1. Login to our website @ [email or web address] 2. Enter your original user name and password. FAQS The [facility] Health Portal is an online tool that contains your Lab Results, Radiology Reports, Visit History, Discharge Instructions and Health Summary Lab and Radiology Results will not be available for 72 hours on the portal. The Portal is a secure site, passwords are encryted and URLs are re-written so they cannot be copied and pasted. You and authorized family members are the only ones who can access your Portal. Also there is a timeout feature that protects your information if you leave the Portal page open. If you have technical difficulty please use the Contact Us link on the page this will allow you to submit any questions you have regarding the Portal or you may contact the Medical Record Department at [phone] ext [phone].
[2023-09-01 12:35] LABS: Absolute Neutrophil Ct (ANC) 6.54 x10^3/uL (1.4-6.9); BASOPHIL % 0.2 % (0.0-0.4); Basophil (Absolute #) 0.02 x10^3/uL (0-0.4); Eosinophil % 0.1 % (0.00-5.0); Eosinophil (Absolute #) 0.01 x10^3/uL (0-0.5); Hematocrit 31.6 % (35-47); Hemoglobin 9.8 g/dL (12.0-16.0); IMMATURE GRAN # 0.04 x10^3u/L (0.00-0.03); IMMATURE GRAN % 0.4 % (0.00-0.4); Lymphocytes % 24.9 % (24.0-44.0); Mean Corpuscular Hemoglobin 27.9 pg (26-32); Mean Platelet Volume 11.6 fL (7.5-11.0); Monocyte (Absolute #) 0.61 x10^3/uL (0.0-1.3); Monocytes % 6.3 % (0.0-12.0); Neutrophil % 68.1 % (36.0-66.0); Platelet Count 269 x10^3/uL (150-450); Red Blood Count 3.51 x10^6/uL (4.1-5.4); Red Cell Distribution Width 16.2 % (11.5-14.0); White Blood Count 9.6 x10^3/uL (4.0-10.5)
[2023-09-01 12:48] LABS: ALBUMIN 4.1 g/dL (3.5-5.0); ANION GAP 11.1 MEQ/L (5-15); BILIRUBIN,TOTAL 0.3 mg/dL (0.2-1.3); Calcium 9.1 mg/dL (8.4-10.2); Creatinine 1 1.39 mg/dL (0.52-1.04); EST GLOMERULAR FILTRATION RATE 41.6 ML/MIN; Potassium 4.1 mmol/L (3.5-5.1); Total Protein 7.2 g/dL (6.3-8.2)
[2023-09-01 12:56] LABS: INR 1.96 (0.8-3.0); PROTIME 20.4 SECONDS (9.4-12.5)
[2023-09-01] MEDS ORDERED: BALFAXAR 500 UNIT VIAL IV ONE (13:08)
[2023-09-01] MEDS: BALFAXAR 500 UNIT VIAL IV STA (13:31)
[2023-09-01] MEDS ORDERED: Zofran 4 MG/2 ML VIAL ONE (13:32)
[2023-09-01] MEDS ORDERED: MORPHINE SULFATE 4 MG INJ ONE (13:32)
[2023-09-01] MEDS ORDERED: MORPHINE SULFATE 10 MG/ML ONE (13:34)
[2023-09-01] MEDS: MORPHINE SULFATE 10 MG/ML IV ONE (13:37)
[2023-09-01] MEDS: Zofran 4 MG/2 ML VIAL IV ONE (13:37)
[2023-09-01 13:47] LABS: ABO TYPING O; Antibody Screen POSITIVE (NEGATIVE); RH TYPING POSITIVE
[2023-09-01 14:11] VITALS: BP 131/62; PULSE 73; RESP 24; O2SAT 92
== END 2023-09-01 14:23 | disposition home or self-care (01) ==
LOC: ED 11:34
DX: M96.831 Postprocedural hemorrhage of a musculoskeletal structure following other procedure (principal); D68.318 Other hemorrhagic disorder due to intrinsic circulating anticoagulants, antibodies, or inhibitors; E78.5 Hyperlipidemia, unspecified; Z79.01 Long term (current) use of anticoagulants; Z79.891 Long term (current) use of opiate analgesic; Z79.899 Other long term (current) drug therapy
CPT/HCPCS: 36000; 36415; 80053; 85025; 85610; 85730; 86850; 86900; 86901; 87040; 96374; 96375; 99284; 99291; J2270; J2405; J7165

== ENCOUNTER 2023-09-01 19:46 | Emergency (ER) | payer MEDICARE, OTHER ==
--- NOTE | 2023-09-01 20:33 | ERPHSYRPT ---
- History of Present Illness Time Seen by Provider: 09/01/23 20:10 Source: patient Exam Limitations: no limitations Physician History: Pt states she had an operation on her right wrist and right hand [address] Love(hand surgeon per pt) at [facility] and has had bleeding from her incisions in her right forearm and hand since this morning. [facility] where she was evaluated, treated and sent home. Pt states she has had more tingling in her right hand since. Pt denies chest pain, fever, abdominal pain, shortness of air. Allergies/Adverse Reactions: hydrocodone Adverse Reaction (Mild, Verified 09/01/23 20:01) Vomiting oxycodone Adverse Reaction (Mild, Verified 09/01/23 20:01) Vomiting Home Medications: Atorvastatin Calcium 80 mg PO HS 11/13/17 [History] Paroxetine Mesylate 25 mg PO DAILY 11/13/17 [History] Tramadol HCl 50 mg PO DAILY PRN 11/13/17 [History] Alendronate Sodium 35 mg PO WEEKLY 07/25/22 [History] Oxycodone HCl 5 mg Ir [Oxy-IR 5 MG] 5 mg PO QID PRN 09/01/23 [History] methylPREDNISolone [Methylprednisolone] 4 mg PO UD 09/01/23 [History] Hx Tetanus, Diphtheria Vaccination/Date Given: Yes Hx Influenza Vaccination/Date Given: Yes Hx Pneumococcal Vaccination/Date Given: Yes Travel Risk - Emerging Infectious Disease Are you exhibiting symptoms associated with any current EIDs: No - Review of Systems Constitutional: No Fever Respiratory: No Dyspnea Cardiac: No Chest Pain Abdominal/Gastrointestinal: No Abdominal Pain, No Vomiting Musculoskeletal: Other (bleeding from right forearm/hand incisions today) - Past Medical History Pertinent Past Medical History: Yes Neurological History: Migraines, TIA ENT History: Cataracts Cardiac History: Deep Vein Thrombosis, High Cholesterol Respiratory History: Asthma Endocrine Medical History: No Pertinent History Musculoskeletal History: Other GI Medical History: Colorectal Cancer History: No Pertinent History Psycho-Social History: No Pertinent History Female Reproductive Disorders: No Pertinent History Other Medical History: 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 osteopenia. cluster headaches - Past Surgical History Past Surgical History: Yes Neuro Surgical History: No Pertinent History Cardiac: Other Respiratory: No Pertinent History Gastrointestinal: Colon Resection, Exploratory Laparoscopy, Other Genitourinary: No Pertinent History Musculoskeletal: Other Female Surgical History: Hysterectomy Other Surgical History: CVL port in & out, nuclear medicine stress test several years ago, ostomy placement and reversal, pt states surgery for both shoulders, "frozen shoulders" - Social History Smoking Status: Former smoker How long have you smoked: 44 yrs Exposure to second hand smoke: No Drug Use: none Patient Lives Alone: No () - Nursing Vital Signs Nursing Vital Signs: Initial Vital Signs Temperature 96.9 F 09/01/23 20:05 Pulse Rate 77 09/01/23 20:05 Respiratory Rate 16 09/01/23 20:05 Blood Pressure 101/61 09/01/23 20:05 O2 Sat by Pulse Oximetry 98 09/01/23 20:05 Pain Scale Pain Intensity 5 - Physical Exam General Appearance: alert Eyes, Ears, Nose, Throat Exam: pharynx normal Neck Exam: normal inspection Cardiovascular/Respiratory Exam: normal breath sounds, heart sounds normal Abdominal Exam: soft (B.S. normal) Elbow/Forearm Exam: No normal inspection (oozing blood from incisions on volar and dorsal aspect of distal right forearm) Hand Exam: limited ROM (tingling of right hand digits; capillary refill is 4 seconds for all right hand digits.), No normal inspection (oozing blood from 2 incisions on dorsum of right hand) Mental Status Exam: alert, cooperative Ordered Tests: Active Orders 24 hr Category Date Time Status IV Insertion STAT Care 09/01/23 20:46 Active CBC W DIFF Stat Lab 09/01/23 21:01 Completed CMP Stat Lab 09/01/23 21:01 Received PROTIME WITH INR Stat Lab 09/01/23 21:01 Received PTT Stat Lab 09/01/23 21:01 Received Medication Summary Generic Name Dose Route Start Last Admin Trade Name Freq PRN Reason Stop Dose Admin Sodium Chloride 1,000 mls @ 100 mls/hr 09/01/23 21:00 09/01/23 20:55 Sodium Chloride 0.9% 1000 Ml IV 10/01/23 20:59 100 mls/hr .Q10H SHEBA Administration Discontinued Medications Generic Name Dose Route Start Last Admin Trade Name Freq PRN Reason Stop Dose Admin Morphine Sulfate 2 mg 09/01/23 21:09 Morphine Sulfate 2 Mg/Ml Inj IV 09/01/23 21:10 STAT ONE Ondansetron HCl 4 mg 09/01/23 21:09 Ondansetron Hcl 4 Mg/2 Ml Vial IV 09/01/23 21:10 STAT ONE Lab/Rad Data: Laboratory Result Diagrams 09/01/23 21:01 Laboratory Results 09/01/23 Range/Units 21:01 WBC 10.8 H (4.0-10.5) x10^3/uL RBC 3.28 L (4.1-5.4) x10^6/uL Hgb 9.2 L (12.0-16.0) g/dL Hct 29.7 L (35-47) % MCV 90.5 (78-100) fL MCH 28.0 (26-32) pg MCHC 31.0 L (32-36) g/dL RDW 16.2 H (11.5-14.0) % Plt Count 252 (150-450) x10^3/uL MPV 11.3 H (7.5-11.0) fL Gran % 73.7 H (36.0-66.0) % Immature Gran % (Auto) 0.6 H (0.00-0.4) % Nucleat RBC Rel Count 0.0 (0.00-0.1) % Eos # (Auto) 0.03 (0-0.5) x10^3/uL Immature Gran # (Auto) 0.06 H (0.00-0.03) x10^3u/L Absolute Lymphs (auto) 1.78 (1.0-4.6) x10^3/uL Absolute Monos (auto) 0.94 (0.0-1.3) x10^3/uL Absolute Nucleated RBC 0.00 (0.00-0.01) x10^3u/L Lymphocytes % 16.5 L (24.0-44.0) % Monocytes % 8.7 (0.0-12.0) % Eosinophils % 0.3 (0.00-5.0) % Basophils % 0.2 (0.0-0.4) % Absolute Granulocytes 7.96 H (1.4-6.9) x10^3/uL Basophils # 0.02 (0-0.4) x10^3/uL - Progress Progress: unchanged Will see patient in: other (Spoke with and discussed pt with Dr. Marlow([id number]) who accepted pt for transfer to [facility].) Counseled pt/family regarding: diagnosis Medical Desision Making - Diagnostic Testing Diagnostic test were ordered, analyzed, and reviewed by me: Yes - Departure Departure Disposition: Transfer ([facility]) Clinical Impression: S/P right hand/forearm surgery day 3, Bleeding from incisions in right hand, Bleeding in right forearm incisions, Decreased sensation right hand digits Condition: Stable Critical Care Time: No Referrals: JOHANNA DAVIS MD [Primary Care Provider] - Follow up/PCP as directed
[2023-09-01 20:48] VITALS: TEMP 96.9
[2023-09-01] MEDS ORDERED: Sodium Chloride 0.9% 1000 ML 1,000 ML ONE (20:50)
[2023-09-01] MEDS: Sodium Chloride 0.9% 1000 ML 1,000 ML IV SCH (20:55)
[2023-09-01 21:04] LABS: Absolute Neutrophil Ct (ANC) 7.96 x10^3/uL (1.4-6.9); BASOPHIL % 0.2 % (0.0-0.4); Basophil (Absolute #) 0.02 x10^3/uL (0-0.4); Eosinophil % 0.3 % (0.00-5.0); Eosinophil (Absolute #) 0.03 x10^3/uL (0-0.5); Hematocrit 29.7 % (35-47); Hemoglobin 9.2 g/dL (12.0-16.0); IMMATURE GRAN # 0.06 x10^3u/L (0.00-0.03); IMMATURE GRAN % 0.6 % (0.00-0.4); Lymphocyte (Absolute #) 1.78 x10^3/uL (1.0-4.6); Lymphocytes % 16.5 % (24.0-44.0); Mean Cell Volume 90.5 fL (78-100); Mean Platelet Volume 11.3 fL (7.5-11.0); Monocyte (Absolute #) 0.94 x10^3/uL (0.0-1.3); Monocytes % 8.7 % (0.0-12.0); Neutrophil % 73.7 % (36.0-66.0); Platelet Count 252 x10^3/uL (150-450); Red Blood Count 3.28 x10^6/uL (4.1-5.4); Red Cell Distribution Width 16.2 % (11.5-14.0); White Blood Count 10.8 x10^3/uL (4.0-10.5)
[2023-09-01] MEDS ORDERED: MORPHINE SULFATE 2 MG INJ ONE (21:15)
[2023-09-01] MEDS ORDERED: Zofran 4 MG/2 ML VIAL ONE (21:15)
[2023-09-01] MEDS: Zofran 4 MG/2 ML VIAL IV ONE (21:16)
[2023-09-01] MEDS: MORPHINE SULFATE 2 MG INJ IV ONE (21:18)
[2023-09-01 21:19] LABS: ALBUMIN 3.9 g/dL (3.5-5.0); ANION GAP 10.5 MEQ/L (5-15); BILIRUBIN,TOTAL 0.4 mg/dL (0.2-1.3); Calcium 9.1 mg/dL (8.4-10.2); Creatinine 1 1.36 mg/dL (0.52-1.04); EST GLOMERULAR FILTRATION RATE 42.7 ML/MIN; Total Protein 6.8 g/dL (6.3-8.2)
[2023-09-01 21:20] VITALS: PULSE 76
[2023-09-01 21:21] LABS: INR 1.51 (0.8-3.0); PTT 28.5 SECONDS (25.1-36.5)
[2023-09-01 23:07] VITALS: BP 162/64; RESP 16; O2SAT 95
== END 2023-09-01 22:53 | disposition short-term general hospital (02) ==
LOC: ED 19:46
DX: M96.830 Postprocedural hemorrhage of a musculoskeletal structure following a musculoskeletal system procedure (principal); R20.1 Hypoesthesia of skin; E78.5 Hyperlipidemia, unspecified; Z79.891 Long term (current) use of opiate analgesic; Z79.52 Long term (current) use of systemic steroids; Z79.899 Other long term (current) drug therapy
CPT/HCPCS: 36000; 36415; 80053; 85025; 85610; 85730; 96374; 96375; 99285; J2270; J2405

== ENCOUNTER 2024-04-18 23:14 | Observation (INO) | payer MEDICARE, OTHER ==
--- NOTE | 2024-04-18 23:21 | ERPHSYRPT ---
- History of Present Illness Time Seen by Provider: 04/18/24 23:20 Source: patient, family Exam Limitations: clinical condition Physician History: This is a 68-year-old white female patient of Dr. Alfred who presents to the emergency room department by private vehicle accompanied by her because of sudden onset of what appears to be aphasia and just acting oddly with her in the car when her was driving. This occurred at approximate 2245 this evening prior to arrival. Patient denies headache. Patient denies chest pain. Patient denies shortness of breath. Patient's states that this is never happened before. Patient has a history of hyperlipidemia, osteoporosis and depression. In observing the patient in the room she does move about oddly and seems somewhat confused but answers all of the questions appropriately and is moving all of her extremities. Timing/Duration: today Severity: mild Deficits: no difficulties Baseline/Normal Cognition: alert oriented x 3 Current Cognition: alert oriented x 3 Baseline Gait: walks w/o assistance Associated Symptoms: confusion (Resolved prior to arrival), vision changes ( reports that when she looks in him she sees for eyes into nose), No slurred speech, No chest pain, No headache Allergies/Adverse Reactions: Penicillins Allergy (Unknown, Verified 04/18/24 23:49) unknown reaction from childhood. hydrocodone Adverse Reaction (Mild, Verified 04/18/24 23:49) Vomiting oxycodone Adverse Reaction (Mild, Verified 04/18/24 23:49) Vomiting Home Medications: Atorvastatin Calcium 80 mg PO HS 11/13/17 [History] Paroxetine Mesylate 25 mg PO DAILY 11/13/17 [History] Tramadol HCl 50 mg PO DAILY PRN 11/13/17 [History] Alendronate Sodium 35 mg PO WEEKLY 07/25/22 [History] Apixaban [Eliquis] 5 mg PO BID 04/19/24 [History] Cyanocobalamin (Vitamin B-12) [Vitamin B-12] 1,000 mcg PO DAILY 04/19/24 [History] Folic Acid 1 mg [Folate 1 mg] 1 mg PO DAILY 04/19/24 [History] Sennosides [Senna] 8.6 mg PO UD 04/19/24 [History] Zolpidem Tartrate 10 mg [Ambien 10 MG] 10 mg PO HS 04/19/24 [History] Hx Tetanus, Diphtheria Vaccination/Date Given: Yes Hx Influenza Vaccination/Date Given: Yes Hx Pneumococcal Vaccination/Date Given: Yes Travel Risk - International Travel Have you traveled outside of the country in past 3 weeks: No - Emerging Infectious Disease Are you exhibiting symptoms associated with any current EIDs: No - Review of Systems Constitutional: No Symptoms Eyes: No Symptoms Ears, Nose, & Throat: No Symptoms Respiratory: No Symptoms Cardiac: No Symptoms Abdominal/Gastrointestinal: No Symptoms Genitourinary Symptoms: No Symptoms Musculoskeletal: No Symptoms Skin: No Symptoms Neurological: Other ( reports that she suddenly acted oddly. Those symptoms seem to improve somewhat upon arrival to the emergency department. She also complains of some double vision) Psychological: No Symptoms Endocrine: No Symptoms Hematologic/Lymphatic: No Symptoms Immunological/Allergic: No Symptoms All Other Systems: Reviewed and Negative - Past Medical History Pertinent Past Medical History: Yes Neurological History: Migraines, TIA ENT History: Cataracts Cardiac History: Deep Vein Thrombosis, High Cholesterol Respiratory History: Asthma Endocrine Medical History: No Pertinent History Musculoskeletal History: Other GI Medical History: Colorectal Cancer History: No Pertinent History Psycho-Social History: No Pertinent History Female Reproductive Disorders: No Pertinent History Other Medical History: 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 osteopenia. cluster headaches - Past Surgical History Past Surgical History: Yes Neuro Surgical History: No Pertinent History Cardiac: Other Respiratory: No Pertinent History Gastrointestinal: Colon Resection, Exploratory Laparoscopy, Other Genitourinary: No Pertinent History Musculoskeletal: Other Female Surgical History: Hysterectomy Other Surgical History: CVL port in & out, nuclear medicine stress test several years ago, ostomy placement and reversal, pt states surgery for both shoulders, "frozen shoulders" - Social History Smoking Status: Former smoker How long have you smoked: 44 yrs Exposure to second hand smoke: No Drug Use: none Patient Lives Alone: No () - Social Determinants of Health Will the patient participate in the screening: Yes Do you worry about a steady place to live?: No In the past 12 months,have you had to go without utilities?: No Transportation Issues: No Has anyone in your support network made you feel unsafe?: No Have you or anyone in your house had to go without enough: No - Nursing Vital Signs Nursing Vital Signs: Initial Vital Signs O2 Sat by Pulse Oximetry 98 04/18/24 23:20 Pain Scale Pain Intensity 0 - Physical Exam General Appearance: no apparent distress, alert Eye Exam: bilateral eye: normal inspection, PERRL, EOMI Ears, Nose, Throat Exam: normal ENT inspection, moist mucous membranes Neck Exam: normal inspection, non-tender, supple, full range of motion Respiratory: normal breath sounds, lungs clear, airway intact, No chest tenderness, No respiratory distress Cardiovascular: regular rate/rhythm, normal heart sounds, normal peripheral pulses Gastrointestinal: soft, normal bowel sounds, No tenderness Pelvic Exam: not done Rectal Exam: not done Back Exam: normal inspection, normal range of motion, No CVA tenderness, No vertebral tenderness Extremity Exam: normal inspection, normal range of motion, pelvis stable Mental Status: alert, oriented x 3, 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 Exam: normal hearing, normal speech, PERRL, tongue midline Coordination/Gait: normal gait, normal cerebellar function Motor/Sensory: no motor deficit, no sensory deficit, no pronator drift Skin Exam: normal color, warm, dry SpO2 Interpretation: normal O2 Delivery: Room Air - Course Nursing assessment & vital signs reviewed: Yes Ordered Tests: Active Orders 24 hr Category Date Time Status Concrete Finisher STAT Care 04/18/24 23:21 Active EKG-ER Only STAT Care 04/18/24 23:20 Active IV Insertion STAT Care 04/18/24 23:20 Active NPO (ED) STAT Care 04/18/24 23:20 Active POCT Glucose Check STAT Care 04/18/24 23:20 Active Pulse Oximetry (ED) STAT Care 04/18/24 23:20 Active Tele-Health Consult ROUTINE Cons 04/19/24 03:26 Active CHEST 1 VIEW (PORTABLE) Stat Exams 04/19/24 03:[address] ANGIOGRAPHY NECK [CT] Stat Exams 04/19/24 00:01 Completed CTA HEAD W AND/OR WO CONTRAST [CT] Stat Exams 04/19/24 00:00 Completed HEAD WITHOUT CONTRAST [CT] Stat Exams 04/18/24 23:15 Completed CBC W DIFF Stat Lab 04/18/24 23:34 Completed CMP Stat Lab 04/18/24 23:34 Completed CULTURE,URINE Stat Lab 04/19/24 00:36 Received PROTIME WITH INR Stat Lab 04/18/24 23:34 Completed UA W/RFX UR CULTURE Stat Lab 04/19/24 00:36 Completed Medication Summary Discontinued Medications Generic Name Dose Route Start Last Admin Trade Name Freq PRN Reason Stop Dose Admin Furosemide 40 mg 04/19/24 04:38 Furosemide 40 Mg/4 Ml Vial IV 04/19/24 04:39 STAT ONE Furosemide Confirm 04/19/24 04:46 Furosemide 40 Mg/4 Ml Vial Administered 04/19/24 04:47 Dose 40 mg .ROUTE .STK-MED ONE Sodium Chloride 500 mls @ 500 mls/hr 04/19/24 00:14 04/19/24 00:32 Sodium Chloride 0.9% 500 Ml IV 04/19/24 01:13 500 mls/hr .Q1H ONE Administration Sodium Chloride Confirm 04/19/24 00:30 Sodium Chloride 0.9% 500 Ml Administered 04/19/24 00:31 Dose 500 mls @ ud IV .STK-MED ONE Levofloxacin 500 mg 04/19/24 01:42 04/19/24 03:09 Levofloxacin 500 Mg Tablet PO 04/19/24 01:43 500 mg STAT ONE Administration Levofloxacin Confirm 04/19/24 03:09 Levofloxacin 500 Mg Tablet Administered 04/19/24 03:10 Dose 500 mg .ROUTE .STK-MED ONE Oseltamivir Phosphate 75 mg 04/19/24 04:39 Oseltamivir 75 Mg Cap PO 04/19/24 04:40 STAT ONE Oseltamivir Phosphate Confirm 04/19/24 04:46 Oseltamivir 75 Mg Cap Administered 04/19/24 04:47 Dose 75 mg PO .STK-MED ONE Lab/Rad Data: Laboratory Result Diagrams 04/18/24 23:34 04/18/24 23:34 Laboratory Results 04/19/24 04/19/24 04/18/24 Range/Units 03:19 00:36 23:34 WBC (3.98-10.04) x10^3/uL RBC (3.93-5.22) x10^6/uL Hgb (11.2-15.7) g/dL Hct (34.1-44.9) % MCV (79.4-94.8) fL MCH (25.6-32.2) pg MCHC (32.2-35.5) g/dL RDW (11.7-14.4) % Plt Count (182-369) x10^3/uL MPV (9.4-12.3) fL Gran % (34.0-71.1) % Immature Gran % (Auto) (0.001-0.429) % Nucleat RBC Rel Count (0.00-0.2) % Eos # (Auto) (0.04-0.36) x10^3/uL Immature Gran # (Auto) (0.001-0.031) x10^3u/L Absolute Lymphs (auto) (1.18-3.74) x10^3/uL Absolute Monos (auto) (0.24-0.86) x10^3/uL Absolute Nucleated RBC (0.00-0.012) x10^3u/L Lymphocytes % (19.3-51.7) % Monocytes % (4.7-12.5) % Eosinophils % (0.7-5.8) % Basophils % (0.1-1.2) % Absolute Granulocytes (1.56-6.13) x10^3/uL Basophils # (0.01-0.08) x10^3/uL PT 11.1 (9.4-12.5) SECONDS INR 1.02 (0.8-3.0) Sodium (135-145) mmol/L Potassium (3.5-5.1) mmol/L Chloride (98-107) mmol/L Carbon Dioxide (22-30) mmol/L Anion Gap (5-15) MEQ/L BUN (7-17) mg/dL Creatinine (0.52-1.04) mg/dL Estimated GFR ML/MIN Glucose (74-106) mg/dL Calcium (8.4-10.2) mg/dL Total Bilirubin (0.2-1.3) mg/dL AST (14-36) U/L ALT (0-35) U/L Alkaline Phosphatase (38-126) U/L Serum Total Protein (6.3-8.2) g/dL Albumin (3.5-5.0) g/dL Urine Color Yellow (Yellow) Urine Appearance Clear (Clear) Urine pH 5.0 (4.6-8.0) Ur Specific [place] >=1.030 A (1.005-1.030) Urine Protein Trace A (Negative) Urine Glucose (UA) Negative (Negative) mg/dL Urine Ketones Negative (Negative) Urine Blood Large A (Negative) Urine Nitrite Negative (Negative) Urine Bilirubin Negative (Negative) Urine Urobilinogen 0.2 (0.2) mg/dL Ur Leukocyte Esterase Small A (Negative) U Hyaline Cast (Auto) 3-5 A (0-2) /LPF Urine Microscopic RBC 51-100 A (0-5) /HPF Urine Microscopic WBC 11-20 A (0-5) /HPF Ur Epithelial Cells Moderate A (None Seen) /HPF Urine Bacteria Few A (None Seen) /HPF Urine Culture Reflexed YES (NO) Influenza Type A Ag POSITIVE A (NEGATIVE) Influenza Type B Ag NEGATIVE (NEGATIVE) RSV (PCR) NEGATIVE (NEGATIVE) SARS-CoV-2 (PCR) NEGATIVE (NEGATIVE) 04/18/24 04/18/24 Range/Units 23:34 23:34 WBC 3.7 L (3.98-10.04) x10^3/uL RBC 4.48 (3.93-5.22) x10^6/uL Hgb 13.1 (11.2-15.7) g/dL Hct 42.2 (34.1-44.9) % MCV 94.2 (79.4-94.8) fL MCH 29.2 (25.6-32.2) pg MCHC 31.0 L (32.2-35.5) g/dL RDW 14.9 H (11.7-14.4) % Plt Count 215 (182-369) x10^3/uL MPV 11.1 (9.4-12.3) fL Gran % 53.0 (34.0-71.1) % Immature Gran % (Auto) 0.3 (0.001-0.429) % Nucleat RBC Rel Count 0.0 (0.00-0.2) % Eos # (Auto) 0.06 (0.04-0.36) x10^3/uL Immature Gran # (Auto) 0.01 (0.001-0.031) x10^3u/L Absolute Lymphs (auto) 1.18 (1.18-3.74) x10^3/uL Absolute Monos (auto) 0.45 (0.24-0.86) x10^3/uL Absolute Nucleated RBC 0.00 (0.00-0.012) x10^3u/L Lymphocytes % 32.1 (19.3-51.7) % Monocytes % 12.2 (4.7-12.5) % Eosinophils % 1.6 (0.7-5.8) % Basophils % 0.8 (0.1-1.2) % Absolute Granulocytes 1.95 (1.56-6.13) x10^3/uL Basophils # 0.03 (0.01-0.08) x10^3/uL PT (9.4-12.5) SECONDS INR (0.8-3.0) Sodium 137 (135-145) mmol/L Potassium 3.6 (3.5-5.1) mmol/L Chloride 105 (98-107) mmol/L Carbon Dioxide 20 L (22-30) mmol/L Anion Gap 15.1 H (5-15) MEQ/L BUN 23 H (7-17) mg/dL Creatinine 1.43 H (0.52-1.04) mg/dL Estimated GFR 40.0 ML/MIN Glucose 107 H (74-106) mg/dL Calcium 8.8 (8.4-10.2) mg/dL Total Bilirubin 0.30 (0.2-1.3) mg/dL AST 63 H (14-36) U/L ALT 49 H (0-35) U/L Alkaline Phosphatase 140 H (38-126) U/L Serum Total Protein 7.3 (6.3-8.2) g/dL Albumin 4.3 (3.5-5.0) g/dL Urine Color (Yellow) Urine Appearance (Clear) Urine pH (4.6-8.0) Ur Specific [place] (1.005-1.030) Urine Protein (Negative) Urine Glucose (UA) (Negative) mg/dL Urine Ketones (Negative) Urine Blood (Negative) Urine Nitrite (Negative) Urine Bilirubin (Negative) Urine Urobilinogen (0.2) mg/dL Ur Leukocyte Esterase (Negative) U Hyaline Cast (Auto) (0-2) /LPF Urine Microscopic RBC (0-5) /HPF Urine Microscopic WBC (0-5) /HPF Ur Epithelial Cells (None Seen) /HPF Urine Bacteria (None Seen) /HPF Urine Culture Reflexed (NO) Influenza Type A Ag (NEGATIVE) Influenza Type B Ag (NEGATIVE) RSV (PCR) (NEGATIVE) SARS-CoV-2 (PCR) (NEGATIVE) - Progress Progress Note: 04/19/24 00:02 My medical decision making and the assignment of at least moderate complexity is based on review of the patient's past medical history, review of patient's medication list, reviewed patient drug allergy list, history present illness and physical findings on examination. The workup in this patient includes stat CT scan of the head without contrast, CBC, CMP, twelve-lead EKG, troponin level, urinalysis. Differential diagnosis includes but is not limited to anxiety/stress, TIA, CVA, other acute intracranial abnormality, electrolyte abnormalities, urinary tract infection, arrhythmias 04/19/24 00:[address] scan of the head without contrast was interpreted by the radiologist and I reviewed the impression. The impression states no evidence for established acute infarction, intracranial or extracranial hemorrhage. There is evidence of microvascular ischemic changes 04/19/24 00:47 The patient actually went out to use the restroom on her own and came back on her own without any request for help or directions. 04/19/24 03:15 I spoke with teleneurologist Dr. Ding. He recommended treating the patient 's infections in the hospital and ordering a MRI of the brain. He states that this MRI can be ordered for 04/20/2024. It does not have to be done immediately or stat. He does feel the patient should be observed and other medical issues treated first. He specifically stated to continue Eliquis but do not put her on any additional aspirin. 04/19/24 04:37 The chest x-ray was interpreted by the radiologist and I reviewed the impression. The impression states mild bilateral pleural effusion left greater than right. Cardiomegaly present. Possibility of pulmonary edema needs to be considered 04/19/24 05:[address] Mclean, our telehospitalist on-call this time. I reviewed the patient history, presenting complaint, physical findings on examination and workup results. I also informed him of the results of the consultation with the teleneurologist. I reviewed the teleneurologist recommendations with Dr. Mclean. I told Dr. Mclean I started the initial doses of IV antibiotics, Tamiflu and Lasix. He requested, if possible, to have the patient on the floor by 6:00 AM. Discussed with : Jah Counseled pt/family regarding: lab results, diagnosis, rad results Medical Desision Making - Independent Historian Additional History obtained from: Spouse - Diagnostic Testing Diagnostic test were ordered, analyzed, and reviewed by me: Yes Radiological Interpretation: Reviewed by me, Teleradiologist Report - Risk of complications The pt has a high risk of morbidity or mortality based on: Decision regarding hospitilization or escalation of hosp level of care - Departure Departure Disposition: Observation Clinical Impression: Influenza A H1N1 infection, Urinary tract infection, Pleural effusion, TIA (transient ischemic attack) Condition: Fair Critical Care Time: No Referrals: JOHANNA ALFRED MD [Primary Care Provider] - Follow up/PCP as directed
[2024-04-18 23:37] LABS: Absolute Neutrophil Ct (ANC) 1.95 x10^3/uL (1.56-6.13); BASOPHIL % 0.8 % (0.1-1.2); Basophil (Absolute #) 0.03 x10^3/uL (0.01-0.08); Eosinophil % 1.6 % (0.7-5.8); Eosinophil (Absolute #) 0.06 x10^3/uL (0.04-0.36); Hematocrit 42.2 % (34.1-44.9); Hemoglobin 13.1 g/dL (11.2-15.7); IMMATURE GRAN # 0.01 x10^3u/L (0.001-0.031); IMMATURE GRAN % 0.3 % (0.001-0.429); Lymphocyte (Absolute #) 1.18 x10^3/uL (1.18-3.74); Lymphocytes % 32.1 % (19.3-51.7); Mean Cell Volume 94.2 fL (79.4-94.8); Mean Corpuscular Hemoglobin 29.2 pg (25.6-32.2); Mean Platelet Volume 11.1 fL (9.4-12.3); Monocyte (Absolute #) 0.45 x10^3/uL (0.24-0.86); Monocytes % 12.2 % (4.7-12.5); Platelet Count 215 x10^3/uL (182-369); Red Blood Count 4.48 x10^6/uL (3.93-5.22); Red Cell Distribution Width 14.9 % (11.7-14.4); White Blood Count 3.7 x10^3/uL (3.98-10.04)
--- NOTE | 2024-04-18 23:47 | XRAY ---
CLINICAL HISTORY: possbile cva COMPARISON: None. TECHNIQUE: Axial noncontrast CT scan of the brain was performed from the skull base to the high parietal region with coronal and sagittal reformats. One of the following dose reduction techniques were utilized for this exam: Automated exposure control, adjustment of the mA and/or kV according to patient size, use of iterative reconstruction. FINDINGS: Small hypodense area seen in the external capsule suggestive of microvascular ischemic changes. The rest of the visualized brain parenchyma shows normal appearance. No other focal parenchymal abnormalities are demonstrated. Coelho-white matter differentiation is maintained. No midline shifts or deformity. No intracerebral or extra axial hematoma. Normal size and configuration of the cerebral ventricles. Normal CT appearance of the posterior fossa structures namely the cerebellar hemispheres, brainstem and cerebellar peduncles. The cerebello-pontine angles are clear. The osseous structures in the skull base are unremarkable. No definite calvarium fractures. Scanned paranasal sinuses are clear. IMPRESSION: 1. No evidence of established acute infarction, intracranial or extracranial hemorrhage. Early changes of stroke may not be detected on a CT scan. If strong clinical suspicion of stroke then suggest MRI with diffusion-weighted imaging. 2. Microvascular ischemic changes. Electronically Signed by: Manohar Lopez MD. (04/18/2024 23:42:43 EST)
[2024-04-18 23:50] LABS: ALBUMIN 4.3 g/dL (3.5-5.0); ANION GAP 15.1 MEQ/L (5-15); BILIRUBIN,TOTAL 0.3 mg/dL (0.2-1.3); Calcium 8.8 mg/dL (8.4-10.2); Creatinine 1 1.43 mg/dL (0.52-1.04); INR 1.02 (0.8-3.0); PROTIME 11.1 SECONDS (9.4-12.5); Potassium 3.6 mmol/L (3.5-5.1); Total Protein 7.3 g/dL (6.3-8.2)
[2024-04-19] MEDS ORDERED: Sodium Chloride 0.9% 500 ML 500 ML IV ONE (00:30)
[2024-04-19] MEDS: Sodium Chloride 0.9% 500 ML 500 ML IV ONE (00:32)
[2024-04-19 01:29] LABS: Appearance Clear (Clear); Bacteria Few /HPF (None Seen); Bilirubin Negative (Negative); Blood Large (Negative); Epithelial Cells Moderate /HPF (None Seen); Glucose, Urine Negative (Negative); Ketones Negative (Negative); Leukocyte Esterase Small (Negative); Nitrite Negative (Negative); Protein,Urine Dip Trace (Negative); RBC 51-100 /HPF (0-5); Specific Gravity >=1.030 (1.005-1.030); Urobilinogen 0.2 mg/dL (0.2)
--- NOTE | 2024-04-19 01:53 | XRAY ---
CLINICAL HISTORY: Aphasia, AMS at home COMPARISON: none TECHNIQUE: Contrast enhanced thin slice CT angiography scan of the cerebral vessels was performed with intravenous contrast. Angiographic images were processed, 3D MIP images were acquired for interpretation. Contiguous axial images were obtained. Reformatted coronal and sagittal images were also reviewed. If IV contrast material had not been administered, the likelihood of detecting abnormalities relevant to the patients condition would have been substantially decreased. CT scan was performed according to ALARA (as low as reasonable achievable). FINDINGS: Bilateral internal carotid arteries show normal course, calibre and opacification in the canalicular and cavernous part. Their division into the anterior cerebral artery and middle cerebral artery is defined. A1, A2 and M1, M2 segments are normal on both the sides. Bilateral vertebral arteries are seen to unite the form the basilar artery in a normal fashion. Basilar artery shows normal course, caliber and opacification. Its division into the posterior cerebral arteries is defined. Bilateral P1 and P2 segments are normal. Visualized venous structures show normal opacification. No evidence of intracranial aneurysm or AV malformation is seen. IMPRESSION: 1. No evidence of stenosis or aneurysm. No evidence of dissection. Electronically Signed by: Chirag Faulkner MD. (04/19/2024 01:48:53 EST)
--- NOTE | 2024-04-19 01:57 | XRAY ---
CLINICAL HISTORY: AMS at home; aphasic COMPARISON: None. TECHNIQUE: Contrast enhanced thin slice CT angiography scan of the carotid vessels was performed with intravenous contrast. Angiographic images were processed, 3D MIP images were acquired for interpretation.Contiguous axial images were obtained. Reformatted coronal and sagittal images were also reviewed. If IV contrast material had not been administered, the likelihood of detecting abnormalities relevant to the patients condition would have been substantially decreased. CT scan was performed according to ALARA (as low as reasonable achievable). FINDINGS: Included great vessels of the aortic arch are grossly unremarkable. Common carotid artery, carotid Bulb, internal carotid artery , and origin of the external carotid artery are well opacified. Vertebral arteries are well opacified. Jugular veins are well opacified. Included lung apices are grossly unremarkable. Thyroid gland appears unremarkable. IMPRESSION: 1. No evidence of stenosis or aneurysm. No evidence of dissection. Electronically Signed by: Chirag Faulkner MD. (04/19/2024 01:52:09 EST)
[2024-04-19] MEDS ORDERED: Levofloxacin 500 MG Tablet ONE (03:09)
[2024-04-19] MEDS: Levofloxacin 500 MG Tablet PO ONE (03:09)
[2024-04-19 03:57] LABS: INFLUENZA B NEGATIVE (NEGATIVE); RESPIRATORY SYNCTIAL VIRUS NEGATIVE (NEGATIVE); SARS-CoV-2 Xpert Express NEGATIVE (NEGATIVE)
[2024-04-19 04:04] LABS: INFLUENZA A POSITIVE (NEGATIVE)
--- NOTE | 2024-04-19 04:21 | XRAY ---
CLINICAL HISTORY: cough COMPARISON: None. TECHNIQUE: An X-ray of the chest was obtained in AP view. FINDINGS: Obliterated both costophrenic angles likely by the mild amount of pleural effusion. Mild bilateral coarsening of the pulmonary interstitium more along the lower lung zones no definite pulmonary consolidation. Enlarged cardiac size suggestive of cardiomegaly dilated unfolded thoracic aorta. No abnormal mediastinal shadows. Mild bilateral acromioclavicular osteoarthritic changes no definite chest wall or rib fractures. IMPRESSION: 1. Obliterated costophrenic angles by mild pleural effusion. (L>R) 2. Bilateral interstitial coarsening. 3. Cardiomegaly. 4. Pulmonary edema should be ruled out clinically. Electronically Signed by: Manohar Lopez MD. (04/19/2024 04:16:11 EST)
[2024-04-19] MEDS ORDERED: Lasix 40 MG/4 ML ONE (04:46)
[2024-04-19] MEDS ORDERED: Tamiflu 75MG Capsule PO ONE (04:46)
[2024-04-19] MEDS: Tamiflu 75MG Capsule PO ONE (04:56)
[2024-04-19] MEDS: Lasix 40 MG/4 ML IV ONE (04:57)
--- NOTE | 2024-04-19 05:26 | PCM.CONS ---
History of Present Illness - Neuro Consultation Date of Consultation Date: 04/19/24 ED Arrival Date & Time: "I obtained informed consent for this Telemedicine visit and communicated to the patient and/or patient operations support representative that telemedicine is a real time telecommunications-based health care connection between the Patient and the Provider, which enables clinicians who are remote from a patient to provide care for the patient locally, to the best of their abilities in this virtual setting. The telemedicine encounter was performed on a two-way audio and visual platform. All questions and concerns were answered. It was made clear to the patient and/or patient operations support representative that our locations were geographically separate." This included two patient identifiers obtained either from the patient, the family or facility staff. If the patient was cognitively impaired and no family or operations support representative was present, I made staff aware of this fact and outlined all of the above to his staff acting as the patient representatives in an emergency situation. The right of refusal for all telemedicine/video interaction was made clear. I also made clear the fact that I was located in [place]. The patient location is noted in the consultation/in the chart. I am located in the [facility] in the [id number] [address]. I had a clear communication with hospital staff, specifically the physician requesting the consult if available or with the nursing staff responsible if the physician was not available. Details were made clear to all participating. Chief complaint: Change in neurologic status. History of 3 ischemic strokes. History of present illness: This a very nice 68-year-old female with a history of atrial fibrillation who is maintained on Eliquis. She has had 3 ischemic strokes in the past primarily with weakness on the right side. She has not been feeling well lately with cough for the past couple of days. Time last known well was 10:45 PM. At that time she began to alter. She was eating cupcakes and had them all over face. Her says she was talking weird. She is much improved at this point in time. NIH stroke scale score of 0. The patient is not a thrombolytic candidate with an NIH stroke scale score of 0. The patient is not a thrombolytic candidate because she is fully anticoagulated on Eliquis. The patient is not a thrombectomy candidate that is there is no large vessel occlusion. Modified [place] scale score prior to admission was 0. Apparently she is flu A positive.The patient's had some diplopia this evening. But that is cleared up. It is a bit vague and apparently dissipated with re- fixation. Past medical history was negative for hypertension diabetes thyroid dysfunction. CT head showed no acute intracranial pathology. There was some evidence of senescent changes with microvascular disease really not a great deal of atrophy. CTA of the head and neck failed to reveal any high-grade stenoses intracranially or extracranially. No aneurysm or dissection was noted the patient is currently substantially improved. She may also have in addition to her upper respiratory infection with flu positivity she may have evidence of a urinary tract infection. CTA of the head also showed no evidence of an AVM. Imaging was reviewed radiology reports were reviewed. Of course I fully support the interpretation of the radiologist and deferred to the radiologist but I reviewed the the images as well. With her previous strokes she had a great deal of right-sided weakness but this is cleared up other than her right hand. She has had multiple clots in the right upper extremity and has had 7 surgeries on her right wrist and her hand is chronically fixed and contracted. This is unchanged. There is intermittent discomfort in the right hand. But again this is a chronic problem. The patient denied headache, chest pain, abdominal pain, fever chills sweats or rash. She has had cough. But no swollen glands. She denied rash, joint swelling, dysuria despite the fact that there is some evidence of a urinary tract infection. No bleeding from nose or ears no bleeding elsewhere. No GI disturbance/GI complete faints. No nausea and vomiting. Overall other than an upper respiratory infection she has been in her usual state of health. Modified [place] scale score prior to admission was likely a 0. Although she does have some difficulty with the right hand. Past medical history: No history of hypertension diabetes thyroid dysfunction heart disease other than A. fib. She was born without but but does not have it currently. She has a history of cancer of the sigmoid colon but was cured with resection. This was when she was in her 30s. Again she has had blood clots in the right upper extremity which led to anticoagulation. She has had multiple surgeries in the right upper extremity and the right wrist and the hand is completely/chronically contracted. Past surgical history: Multiple operations on the wrist as noted. Colon surgery. Allergies: None known. Family history: Mom had cancer of the lungs and skin. Grandparents had cancer. Social history: Does not smoke. Does not drink to excess. Lives with her . Review of systems: All systems reviewed see HPI. Home medications: Eliquis Ambien 10 mg which is a bit higher than the current recommended dose for females. The Eliquis is 5 mg twice a day and she is compliant she took it today. This was exclude her from being a thrombolytic candidate. Folic acid tramadol atorvastatin 20 mg fluoxetine and Zofran. I do not know her QT corrected interval. Vital signs: Pulse 71 blood pressure 126/70 respiratory rate 18 O2 sat was initially 90 but climbed to 93% on room air temp 98?F. Deferred to the ED attending regarding respiratory status. Laboratory studies: White count 3.7 hemoglobin 13.1 hematocrit 42.2 platelet count 215,000 sodium 137 potassium 3.6 BUN 23 creatinine 1.43 glucose 107 AST 63 ALT 49. INR 1.02 and apparently per staff urinalysis suggested potential urinary tract infection with leukocyte esterase and 11-20 white cells. Clinically stable in the ED. She is feeling better. Video examination: The exam by video is often very difficult. Exam is limited by the inability to perform auscultation, palpation, funduscopic exam or the reflexes. Observation itself is often very difficult by video. Nursing skill set varies from nurse to nurse and Hospital to Hospital and this is another added variable in the examination. I always attempt to complete the full single specialty examination on each patient. It is also often limited by cooperation. Again the limitations of video are inherent. However I always attempt to my fullest extent to define the examination completely. Video examination of the neurologic system is inherently very difficult.Nurse Olga assisted. General examination: Normocephalic. No conjunctival irritation. No wheezing. Mild dyspnea some cough. Appears nonproductive. Defer to the primary attending. No rash no joint swelling difficult to evaluate the lower extremitie s as always by video. I cannot say more by video examination. Neurologic examination: NIH of 0. Awake alert oriented intact content of consciousness the language dysfunction no focal motor or sensory cerebellar findings. Some limitations as always by video but my NIH stroke scale score was 0 Diagnostic impression: Very nice 68-year-old female who is in the midst of an upper respiratory infection and flu positivity who may also have a urinary tract infection who has had some alteration in neurologic status perhaps in association with her infectious processes. Of course I cannot exclude an ischemic stroke without an MRI scan. That being said there is no focality currently and her speech is back to normal. I cannot exclude a small vessel ischemic stroke. CT of the head showed no acute intracranial pathology. With her NIH stroke scale score currently being 0, CT of the head without acute intracranial pathology I think the risk-benefit ratio favors continuing her anticoagulation. As always fully anticoagulated patient my recommendation is for systolic pressure under 140. This is not evidence-based but is my standard recommendation to reduce the risk of spontaneous intracranial hemorrhage. Of course as always the patient should have a careful watch for pressure dependent neurologic focality. When available an MRI of the brain should be obtained to exclude an acute ischemic stroke which would likely be small vessel clinically although with a history of A. fib proximal embolic event would need to be considered but again we do not have a clear history of what transpired. We do not have neurologic focality on exam. We have a clear upper respiratory infection with flu positivity and possibly an associated urinary tract infection it is not uncommon for patients with prior history of ischemic stroke to deteriorate in the face of an infectious process. In an ideal environment of course we would obtain an MRI scan immediately to exclude an acute ischemic stroke small vessel or proximal embolic however the likelihood is low and using my best medical judgment for this particular patient at this particular time in this particular clinical situation continuing her Eliquis with systolic pressures maintained under 140 would appear to be most appropriate as her infectious processes are treated. Again a follow-up MRI brain without contrast when available. CT head stat without contrast if there is any change in neurologic status. And ongoing neuro checks. I am hopeful that as the patient's systemic issues are dealt with she stabilizes and shows improvement in the sense that she will feel better than she is currently feeling with her upper respiratory infection. Deferred to the primary team whether or not there is indeed a urinary tract infection. I would like to point out that I never use even 81 mg of aspirin on top of full anticoagulation as even 81 mg of aspirin on top of full anticoagulation increases the risk of both life-threatening systemic as well as life-threatening disabling intracranial hemorrhage. The indications for aspirin on top of full anticoagulation would include a prior carotid endarterectomy, active ischemic heart disease or severe peripheral vascular disease none of which appear to be present in this particular patient. Again the absence of focality, the absence of headache the clinical course are reassuring but still close observation and a follow-up brain MRI no contrast when available are appropriate. Recommendations: 1. Admit to the facility to a stroke neurology unit/medical bed. 2. MRI brain no contrast when available. 3. Neuro checks every 4 hours. If there are any changes please notify the neurology service./The neurology service should be notified. 4. If there is any change in neuro status stat CT head no contrast as neurology is reconsulted. 5. In the face of full anticoagulation it is my recommendation to maintain systolic pressure under 140 to reduce the risk of spontaneous intracranial hemorrhage. This is not evidence-based but is my practice. If any blood pressure control as necessary it should be gentle with no precipitous drop in careful watch for pressure dependent neurologic focality. Hypotension must be avoided pressure dependent presyncopal symptoms must be avoided. 6. Watch sugars. Sugars maintained under 180 and population-based studies improved outcomes. 7. Avoid fevers. The avoidance of fever improved outcomes and population-based studies. 8. Given the current clinical situation with no focality, no headache a negative CT for acute intracranial pathology in this clinical context I would continue her Eliquis 5 mg twice a day. She has had multiple clots in the past. In this is been considered important that she maintain anticoagulation per her primary team. While if the clinical situation dictated such the anticoagulation could be held but in this clinical situation I would endorse continuing it but monitoring the patient carefully. MRI brain no contrast RJ to exclude acute ischemic stroke. This would be to not only exclude the acute ischemic stroke and the potential for hemorrhagic transformation but also to exclude underlying blood products. If present they can increase the risk of intracranial bleeding but the risk-benefit ratio must always be taken into account and in most situations other than cerebral amyloid angiopathy continued anticoagulation would be most appropriate for most patients. 9. Deferred to the primary team regarding venous Doppler the lower extremities to exclude venous occlusive disease. Her anticoagulation will not guarantee prevention of such. Deferred to the primary team whether or not further investigation lower extremities as indicated. 10. Anticoagulation will serve as DVT prophylaxis. 11. Telemetry. 12. Continuous pulse oximetry alarm at 92%. Again the patient was initially 90% when I first saw her but quickly came up to 93% on its own. Deferred to the primary team. 13. Fall precautions, aspiration precautions. 14. Appropriate therapies per the primary team. 15. Neurology follow-up in the facility as needed. 16. Echocardiogram with bubble study. 17. Hemoglobin A1c and lipid panel. 18. Assessment of her statin dose by the primary team after lipid panel returns. 19. In my own practice I would obtain B12 folate B1 levels thyroid functions and CPK. ESR and CRP have limited clinical utility in the face of acute infection. I always consider giant cell arteritis in elderly patients but my assessment of this patient is that there is no clinical stigmata of such. But it should always be kept in mind. 20. Further esoteric laboratory studies at the discretion of the primary team. 21. Deferred to primary team regarding the management of her flu and urinary tract infection if it is present. Again acute infectious processes and patients with prior ischemic stroke can always lead to worsening of neurologic symptoms that can recrudesce. 22. I do not see a clear indication for EEG. 23. If there is any change in clinical status please reconsult us. Case discussed with Dr. Zhou. Teleneurology Consultation is provided in order to facilitate patient care in the absence of an immediately available in-person neurologist. It is not meant to replace a neurology cycle consultant that would be available at the bedside in a timeframe consistent with the patients episode of care. The above recommendations are not an attempt to exhaust the pursuit of every potential differential diagnosis or therapeutic recommendation but is intended to address the most likely diagnoses and suggestions and begin the episode of care in an appropriate direction for the presentation according to the video assessment in the judgment of the neurologist doing the remote consultation. The video assessment examination is very limited. For instance there can be no funduscopic examination, palpation of the vessels and reflexes is not possible, formal examination of strength is not possible. Additionally the sensory exam in the visual field examination by video is extremely limited. Limitations to the remote video consultation include but are not limited to, the inability to assess with clinical certainty aspects of the physical and neurological examination that can only be done at the bedside. Nursing staff cannot be used as a proxy for the examination but only to the extent that they can assist with video/visual assessments from which I can make my own personal medical judgments on the exam. These are limited to video assessment items/details. Often lack of access directly to the patient records including test results, physician notes and other clinical material is also a limitation to a full and complete assessment. There are always potential technical issues as well, including audio quality and the potential for miscommunication which technical issues inherently impart. The limitations of the tele-neurology consultation aside, I have used my best medical judgment for this particular patient at this particular time with the tools available and the abovementioned limitations. The limitations of tele- neurology notwithstanding the ability to provide care remotely is essential in 2023 if a bedside neurologist is not available and one is requisite. As part of the initial introduction patient identifiers were utilized to make certain the correct client was being evaluated. A request to create a patient physician relationship was made and the answer was affirmative. Any questions, orders, order clarifications, test results, or changes in patient status should be addressed immediately only/always with the on-site Physician of Record. Depending on the results of the above studies and the patients clinical course, further recommendations regarding management may be made but only if we are formally reconsulted. Please contact [facility] ([phone] option 1) if there are additional questions or concerns. Disposition:Admit to medical floor. Providers: Attending Provider: ED Provider: APURVA ZHOU Consulting Provider: ANGELITO DEJESUS MD cc:: The requesting physician will be sent a copy of the consult. - History of Present Illness HPI: The patient is a 68F Known stroke risk factors:: Diabetes, Smoking, CAD, Hypertension, AFib, Prior Stroke/s, Dyslipidemia, CKD with or without HD, Obesity, [place] Review of Systems - Review of Systems Review of Systems (Narrative): Pertinent positive and negative findings as per HPI. All other systems negative. 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 osteopenia. cluster headaches - Past Surgical History Past Surgical History: Yes Neuro Surgical History: No Pertinent History Cardiac History: Other Respiratory Surgery: No Pertinent History GI Surgical History: Colon Resection, Exploratory Laparoscopy, Other Genitourinary Surgical Hx: No Pertinent History Musculskeletal Surgical Hx: Other Female Surgical History: Hysterectomy Other Surgical History: CVL port in & out, nuclear medicine stress test several years ago, ostomy placement and reversal, pt states surgery for both shoulders, "frozen shoulders" - Social History Smoking Status: Former smoker How long have you smoked: 44 yrs Exposure to second hand smoke: No Alcohol: None Drug Use: none - Social Determinants of Health Will the patient participate in the screening: Yes Do you worry about a steady place to live?: No In the past 12 months,have you had to go without utilities?: No Have you or anyone in your house had to go without enough: No Transportation Issues: No Has anyone in your support network made you feel unsafe?: No Physical Exam - Vital Signs Vital Signs: Vital Signs - 24 hr 04/18/24 04/18/24 04/19/24 23:20 23:21 00:56 Temperature 98.0 F Pulse Rate 75 Respiratory 18 Rate Blood Pressure 117/53 Blood Pressure 100/60 [Right Arm] O2 Sat by Pulse 98 91 L 96 Oximetry 04/19/24 04/19/24 04/19/24 01:01 01:30 02:01 Temperature Pulse Rate 79 69 72 Respiratory 25 H 19 17 Rate Blood Pressure 102/50 121/67 126/74 Blood Pressure [Right Arm] O2 Sat by Pulse 97 97 Oximetry 04/19/24 04/19/24 03:30 04:01 Temperature Pulse Rate 76 67 Respiratory 28 H 20 Rate Blood Pressure 128/51 120/60 Blood Pressure [Right Arm] O2 Sat by Pulse 94 L 98 Oximetry - NIHSS Stroke Scale Date Completed: 04/18/24 Time Stroke Scale Completed: 23:35 Results - Labs Lab/Micro Results: Lab Results-Last 24 Hours 04/18/24 04/18/24 04/18/24 Range/Units 23:34 23:34 23:34 WBC 3.7 L (3.98-10.04) x10^3/uL RBC 4.48 (3.93-5.22) x10^6/uL Hgb 13.1 (11.2-15.7) g/dL Hct 42.2 (34.1-44.9) % MCV 94.2 (79.4-94.8) fL MCH 29.2 (25.6-32.2) pg MCHC 31.0 L (32.2-35.5) g/dL RDW 14.9 H (11.7-14.4) % Plt Count 215 (182-369) x10^3/uL MPV 11.1 (9.4-12.3) fL Gran % 53.0 (34.0-71.1) % Immature Gran % (Auto) 0.3 (0.001-0.429) % Nucleat RBC Rel Count 0.0 (0.00-0.2) % Eos # (Auto) 0.06 (0.04-0.36) x10^3/uL Immature Gran # (Auto) 0.01 (0.001-0.031) x10^3u/L Absolute Lymphs (auto) 1.18 (1.18-3.74) x10^3/uL Absolute Monos (auto) 0.45 (0.24-0.86) x10^3/uL Absolute Nucleated RBC 0.00 (0.00-0.012) x10^3u/L Lymphocytes % 32.1 (19.3-51.7) % Monocytes % 12.2 (4.7-12.5) % Eosinophils % 1.6 (0.7-5.8) % Basophils % 0.8 (0.1-1.2) % Absolute Granulocytes 1.95 (1.56-6.13) x10^3/uL Basophils # 0.03 (0.01-0.08) x10^3/uL PT 11.1 (9.4-12.5) SECONDS INR 1.02 (0.8-3.0) Sodium 137 (135-145) mmol/L Potassium 3.6 (3.5-5.1) mmol/L Chloride 105 (98-107) mmol/L Carbon Dioxide 20 L (22-30) mmol/L Anion Gap 15.1 H (5-15) MEQ/L BUN 23 H (7-17) mg/dL Creatinine 1.43 H (0.52-1.04) mg/dL Estimated GFR 40.0 ML/MIN Glucose 107 H (74-106) mg/dL Calcium 8.8 (8.4-10.2) mg/dL Total Bilirubin 0.30 (0.2-1.3) mg/dL AST 63 H (14-36) U/L ALT 49 H (0-35) U/L Alkaline Phosphatase 140 H (38-126) U/L Serum Total Protein 7.3 (6.3-8.2) g/dL Albumin 4.3 (3.5-5.0) g/dL Urine Color (Yellow) Urine Appearance (Clear) Urine pH (4.6-8.0) Ur Specific [place] (1.005-1.030) Urine Protein (Negative) Urine Glucose (UA) (Negative) mg/dL Urine Ketones (Negative) Urine Blood (Negative) Urine Nitrite (Negative) Urine Bilirubin (Negative) Urine Urobilinogen (0.2) mg/dL Ur Leukocyte Esterase (Negative) U Hyaline Cast (Auto) (0-2) /LPF Urine Microscopic RBC (0-5) /HPF Urine Microscopic WBC (0-5) /HPF Ur Epithelial Cells (None Seen) /HPF Urine Bacteria (None Seen) /HPF Urine Culture Reflexed (NO) Influenza Type A Ag (NEGATIVE) Influenza Type B Ag (NEGATIVE) RSV (PCR) (NEGATIVE) SARS-CoV-2 (PCR) (NEGATIVE) 04/19/24 04/19/24 Range/Units 00:36 03:19 WBC (3.98-10.04) x10^3/uL RBC (3.93-5.22) x10^6/uL Hgb (11.2-15.7) g/dL Hct (34.1-44.9) % MCV (79.4-94.8) fL MCH (25.6-32.2) pg MCHC (32.2-35.5) g/dL RDW (11.7-14.4) % Plt Count (182-369) x10^3/uL MPV (9.4-12.3) fL Gran % (34.0-71.1) % Immature Gran % (Auto) (0.001-0.429) % Nucleat RBC Rel Count (0.00-0.2) % Eos # (Auto) (0.04-0.36) x10^3/uL Immature Gran # (Auto) (0.001-0.031) x10^3u/L Absolute Lymphs (auto) (1.18-3.74) x10^3/uL Absolute Monos (auto) (0.24-0.86) x10^3/uL Absolute Nucleated RBC (0.00-0.012) x10^3u/L Lymphocytes % (19.3-51.7) % Monocytes % (4.7-12.5) % Eosinophils % (0.7-5.8) % Basophils % (0.1-1.2) % Absolute Granulocytes (1.56-6.13) x10^3/uL Basophils # (0.01-0.08) x10^3/uL PT (9.4-12.5) SECONDS INR (0.8-3.0) Sodium (135-145) mmol/L Potassium (3.5-5.1) mmol/L Chloride (98-107) mmol/L Carbon Dioxide (22-30) mmol/L Anion Gap (5-15) MEQ/L BUN (7-17) mg/dL Creatinine (0.52-1.04) mg/dL Estimated GFR ML/MIN Glucose (74-106) mg/dL Calcium (8.4-10.2) mg/dL Total Bilirubin (0.2-1.3) mg/dL AST (14-36) U/L ALT (0-35) U/L Alkaline Phosphatase (38-126) U/L Serum Total Protein (6.3-8.2) g/dL Albumin (3.5-5.0) g/dL Urine Color Yellow (Yellow) Urine Appearance Clear (Clear) Urine pH 5.0 (4.6-8.0) Ur Specific [place] >=1.030 A (1.005-1.030) Urine Protein Trace A (Negative) Urine Glucose (UA) Negative (Negative) mg/dL Urine Ketones Negative (Negative) Urine Blood Large A (Negative) Urine Nitrite Negative (Negative) Urine Bilirubin Negative (Negative) Urine Urobilinogen 0.2 (0.2) mg/dL Ur Leukocyte Esterase Small A (Negative) U Hyaline Cast (Auto) 3-5 A (0-2) /LPF Urine Microscopic RBC 51-100 A (0-5) /HPF Urine Microscopic WBC 11-20 A (0-5) /HPF Ur Epithelial Cells Moderate A (None Seen) /HPF Urine Bacteria Few A (None Seen) /HPF Urine Culture Reflexed YES (NO) Influenza Type A Ag POSITIVE A (NEGATIVE) Influenza Type B Ag NEGATIVE (NEGATIVE) RSV (PCR) NEGATIVE (NEGATIVE) SARS-CoV-2 (PCR) NEGATIVE (NEGATIVE) Accuchecks Date 04/18/24 Time 23:34 - Radiology Orders Radiology Orders: Radiology Procedures Category Date Time Status CHEST 1 VIEW (PORTABLE) Stat Exams 04/19/24 03:[address] ANGIOGRAPHY NECK [CT] Stat Exams 04/19/24 00:01 Completed CTA HEAD W AND/OR WO CONTRAST [CT] Stat Exams 04/19/24 00:00 Completed HEAD WITHOUT CONTRAST [CT] Stat Exams 04/18/24 23:15 Completed Impressions & Recommendations - ED Arrival Time ED Arrival Date & Time: ED Arrival Date and Time 04/18/24 23:14 Last known well time: - NIHSS IV Thrombolysis Standard of Care: IV thrombolysis as a standard of care in acute stroke discussed with APURVA ZHOU. Risk, benefits, and options of IV thrombolytic therapy for acute ischemic stroke were discussed with the patient/family ANGEL ALVAREZ. We discussed that use of IV tenecteplase is in line with national stroke guidelines. We discussed that risks of IV thrombolytic use include intracranial hemorrhage, other fatal bleeding risks, and angioedema. Alternatives of treatment, including not proceeding with thrombolytic therapy were discussed. - Recommendations Recommendations: -Neuro checks, NIHSS, vital signs monitoring as per post tenecteplase protocol -Repeat non contrast head CT or noncontrast MRI brain 24 hours after IV thrombolyltic administration. -Obtain STAT non contrast head CT if there are new neurological deficits, worsening of current deficits, or with complaint of severe headache. Notify Neurology RJ of changes in neurological exam. -Nicardipine gtt as needed to maintain BP< 180/105 x 24hr post tenecteplase administration. -Monitor for angioedema -SCD's for DVT prophylaxis. Work up: -Basic labs (CBC, BMP, TSH+T4) if not done already. -INR,PTT if not done already -Fasting Lipid Panel and Hgb A1c -Transthroacic echocardiogram [with bubble study] -EKG + Telemetry- monitor for A-FIB Secondary Stroke Prevention -Hold off on antiplatelet therapy x 24 hr post IV thrombolytic therapy Decision to initiate antiplatelet therapy, or anticoagulation if needed, will be based on repeat imaging at 24 hour post thrombolytic administration. -If not medical contraindication, start high intensity statin. Eg. Atrovastatin 80 mg daily Risk Factor Management -HTN control: BP <180/105 for first 24 hr post tenecteplase -If diabetic, optimize glucose control: mix technician goal HgA1c <7 -HLD control: Long-term goal LDL <70. High intensity statin recommended. Moderate intensity statin in patients > 75 years. -Smoking Alcohol Use Drug use cessation counseling Stroke Rehabilitation: -Physical therapy, occupational therapy, speech therapy consults -Social work and case management consults for help with discharge needs. Impression and recommendation were discussed with Dr. APURVA ZHOU Thank you for allowing us to participate in this patient's care. Please call [facility] with questions, concerns, or change in patient's neurological status. This consult was performed via secure telemedicine audio/visual platform with [ ] RN assisting at bedside. Patient identity verified and consent obtained. TIQ recieved at [ ] Neuro Cart Time: Delays in Patient Encounter: Assessment & Plan - Encounter Encounter: "The entirety of this encounter was performed via Telemedicine using audio and visual "
[2024-04-19] MEDS ORDERED: TYLENOL 325 MG PO PRN (06:07)
[2024-04-19] MEDS: Sodium Chloride 0.9% 1000 ML 1,000 ML IV SCH (06:16)
--- NOTE | 2024-04-19 06:18 | PCM.HP ---
History of Present Illness - Chief Complaint Chief Complaint: TIA History of Present Illness: 68 year old female with history of a fib on eliquis, prior ischemic strokes who presents with not feeling well for the past few days who developed slurring of speech and was brought to the ED with concern for another stroke, but fully recovered and had a NIIH stroke scale score of 0. She was found to be influenza A positive during the work up. CTH was unremarkable. UA showed possible UTI as well. - Review of Systems Constitutional: No Fever, No Chills Eyes: No Symptoms Ears, Nose, & Throat: No Symptoms Respiratory: No Cough, No Short Of Breath Cardiac: No Chest Pain, No Edema, No Syncope Abdominal/Gastrointestinal: No Abdominal Pain, No Nausea, No Vomiting, No Diarrhea Genitourinary Symptoms: No Dysuria Musculoskeletal: No Back Pain, No Neck Pain Skin: No Rash Neurological: No Dizziness, No Focal Weakness, No Sensory Changes Psychological: No Symptoms Endocrine: No Symptoms Hematologic/Lymphatic: No Symptoms Immunological/Allergic: No Symptoms Medications & Allergies Home Medications: Home Medication List Atorvastatin Calcium 80 mg PO HS 11/13/17 [History Confirmed 04/19/24] Paroxetine Mesylate 25 mg PO DAILY 11/13/17 [History Confirmed 04/19/24] Tramadol HCl 50 mg PO DAILY PRN 11/13/17 [History Confirmed 04/19/24] Alendronate Sodium 35 mg PO WEEKLY 07/25/22 [History Confirmed 04/19/24] Apixaban [Eliquis] 5 mg PO BID 04/19/24 [History Confirmed 04/19/24] Cyanocobalamin (Vitamin B-12) [Vitamin B-12] 1,000 mcg PO DAILY 04/19/24 [History Confirmed 04/19/24] Folic Acid 1 mg [Folate 1 mg] 1 mg PO DAILY 04/19/24 [History Confirmed 04/19/24] Sennosides [Senna] 8.6 mg PO UD 04/19/24 [History Confirmed 04/19/24] Zolpidem Tartrate 10 mg [Ambien 10 MG] 10 mg PO HS 04/19/24 [History Confirmed 04/19/24] Allergies/Adverse Reactions: Allergies Allergy/AdvReac Type Severity Reaction Status Date / Time Penicillins Allergy Unknown Verified 12/28/24 23:49 hydrocodone AdvReac Mild Vomiting Verified 04/18/24 23:49 oxycodone AdvReac Mild Vomiting Verified 04/18/24 23:49 - Past Medical History Past Medical History: Yes Neurological History: Migraines, Stroke, TIA ENT History: Cataracts Cardiac History: Deep Vein Thrombosis, High Cholesterol Respiratory History: Asthma Endocrine Medical History: No Pertinent History Musculoskelatal History: Other GI Medical History: Colorectal Cancer History: No Pertinent History Pyscho-Social History: No Pertinent History Reproductive Disorders: No Pertinent History Comment: 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 stroke/tia 1996 & 2012 - Past Surgical History Past Surgical History: Yes Neuro Surgical History: No Pertinent History Cardiac History: Other Respiratory Surgery: No Pertinent History GI Surgical History: Colon Resection, Exploratory Laparoscopy, Other Genitourinary Surgical Hx: No Pertinent History Musculskeletal Surgical Hx: Other Female Surgical History: Hysterectomy Other Surgical History: CVL port in & out, nuclear medicine stress test several years ago, ostomy placement and reversal, pt states surgery for both shoulders, "frozen shoulders" - Social History Smoking Status: Former smoker How long have you smoked: 44 yrs Exposure to second hand smoke: No Alcohol: None Drug Use: none - Social Determinants of Health Will the patient participate in the screening: Yes Do you worry about a steady place to live?: No In the past 12 months,have you had to go without utilities?: No Have you or anyone in your house had to go without enough: No Transportation Issues: No Has anyone in your support network made you feel unsafe?: No - Physical Exam Vital Signs: Vital Signs - 24 hr Temp Pulse Resp BP BP Pulse Ox 04/19/24 05:00 70 22 120/59 97 04/19/24 04:30 69 20 121/50 97 04/19/24 04:01 67 20 120/60 98 04/19/24 03:30 76 28 H 128/51 94 L 04/19/24 02:01 72 17 126/74 97 04/19/24 01:30 69 19 121/67 04/19/24 01:01 79 25 H 102/50 97 04/19/24 00:56 117/53 96 04/18/24 23:21 98.0 F 75 18 100/60 91 L 04/18/24 23:20 98 General Appearance: no apparent distress, alert Neurologic Exam: alert, oriented x 3, cooperative, normal mood/affect, nml cerebellar function, nml station & gait, sensation nml, No motor deficits Eye Exam: PERRL/EOMI, eyes nml inspection Ears, Nose, Throat Exam: normal ENT inspection, TMs normal, pharynx normal, moist mucous membranes Neck Exam: normal inspection, non-tender, supple, full range of motion Respiratory Exam: normal breath sounds, lungs clear, No respiratory distress Cardiovascular Exam: regular rate/rhythm, normal heart sounds, normal peripheral pulses Gastrointestinal/Abdomen Exam: soft, normal bowel sounds, No tenderness, No mass Back Exam: normal inspection, normal range of motion, No CVA tenderness, No vertebral tenderness Extremity Exam: normal inspection, normal range of motion, pelvis stable Skin Exam: normal color, warm, dry, No rash Lymphatic Exam: No adenopathy Results - Labs Lab/Micro Results: Lab Results-Last 24 Hours 04/18/24 04/18/24 04/18/24 Range/Units 23:34 23:34 23:34 WBC 3.7 L (3.98-10.04) x10^3/uL RBC 4.48 (3.93-5.22) x10^6/uL Hgb 13.1 (11.2-15.7) g/dL Hct 42.2 (34.1-44.9) % MCV 94.2 (79.4-94.8) fL MCH 29.2 (25.6-32.2) pg MCHC 31.0 L (32.2-35.5) g/dL RDW 14.9 H (11.7-14.4) % Plt Count 215 (182-369) x10^3/uL MPV 11.1 (9.4-12.3) fL Gran % 53.0 (34.0-71.1) % Immature Gran % (Auto) 0.3 (0.001-0.429) % Nucleat RBC Rel Count 0.0 (0.00-0.2) % Eos # (Auto) 0.06 (0.04-0.36) x10^3/uL Immature Gran # (Auto) 0.01 (0.001-0.031) x10^3u/L Absolute Lymphs (auto) 1.18 (1.18-3.74) x10^3/uL Absolute Monos (auto) 0.45 (0.24-0.86) x10^3/uL Absolute Nucleated RBC 0.00 (0.00-0.012) x10^3u/L Lymphocytes % 32.1 (19.3-51.7) % Monocytes % 12.2 (4.7-12.5) % Eosinophils % 1.6 (0.7-5.8) % Basophils % 0.8 (0.1-1.2) % Absolute Granulocytes 1.95 (1.56-6.13) x10^3/uL Basophils # 0.03 (0.01-0.08) x10^3/uL PT 11.1 (9.4-12.5) SECONDS INR 1.02 (0.8-3.0) Sodium 137 (135-145) mmol/L Potassium 3.6 (3.5-5.1) mmol/L Chloride 105 (98-107) mmol/L Carbon Dioxide 20 L (22-30) mmol/L Anion Gap 15.1 H (5-15) MEQ/L BUN 23 H (7-17) mg/dL Creatinine 1.43 H (0.52-1.04) mg/dL Estimated GFR 40.0 ML/MIN Glucose 107 H (74-106) mg/dL Calcium 8.8 (8.4-10.2) mg/dL Total Bilirubin 0.30 (0.2-1.3) mg/dL AST 63 H (14-36) U/L ALT 49 H (0-35) U/L Alkaline Phosphatase 140 H (38-126) U/L Serum Total Protein 7.3 (6.3-8.2) g/dL Albumin 4.3 (3.5-5.0) g/dL Urine Color (Yellow) Urine Appearance (Clear) Urine pH (4.6-8.0) Ur Specific [place] (1.005-1.030) Urine Protein (Negative) Urine Glucose (UA) (Negative) mg/dL Urine Ketones (Negative) Urine Blood (Negative) Urine Nitrite (Negative) Urine Bilirubin (Negative) Urine Urobilinogen (0.2) mg/dL Ur Leukocyte Esterase (Negative) U Hyaline Cast (Auto) (0-2) /LPF Urine Microscopic RBC (0-5) /HPF Urine Microscopic WBC (0-5) /HPF Ur Epithelial Cells (None Seen) /HPF Urine Bacteria (None Seen) /HPF Urine Culture Reflexed (NO) Influenza Type A Ag (NEGATIVE) Influenza Type B Ag (NEGATIVE) RSV (PCR) (NEGATIVE) SARS-CoV-2 (PCR) (NEGATIVE) 04/19/24 04/19/24 Range/Units 00:36 03:19 WBC (3.98-10.04) x10^3/uL RBC (3.93-5.22) x10^6/uL Hgb (11.2-15.7) g/dL Hct (34.1-44.9) % MCV (79.4-94.8) fL MCH (25.6-32.2) pg MCHC (32.2-35.5) g/dL RDW (11.7-14.4) % Plt Count (182-369) x10^3/uL MPV (9.4-12.3) fL Gran % (34.0-71.1) % Immature Gran % (Auto) (0.001-0.429) % Nucleat RBC Rel Count (0.00-0.2) % Eos # (Auto) (0.04-0.36) x10^3/uL Immature Gran # (Auto) (0.001-0.031) x10^3u/L Absolute Lymphs (auto) (1.18-3.74) x10^3/uL Absolute Monos (auto) (0.24-0.86) x10^3/uL Absolute Nucleated RBC (0.00-0.012) x10^3u/L Lymphocytes % (19.3-51.7) % Monocytes % (4.7-12.5) % Eosinophils % (0.7-5.8) % Basophils % (0.1-1.2) % Absolute Granulocytes (1.56-6.13) x10^3/uL Basophils # (0.01-0.08) x10^3/uL PT (9.4-12.5) SECONDS INR (0.8-3.0) Sodium (135-145) mmol/L Potassium (3.5-5.1) mmol/L Chloride (98-107) mmol/L Carbon Dioxide (22-30) mmol/L Anion Gap (5-15) MEQ/L BUN (7-17) mg/dL Creatinine (0.52-1.04) mg/dL Estimated GFR ML/MIN Glucose (74-106) mg/dL Calcium (8.4-10.2) mg/dL Total Bilirubin (0.2-1.3) mg/dL AST (14-36) U/L ALT (0-35) U/L Alkaline Phosphatase (38-126) U/L Serum Total Protein (6.3-8.2) g/dL Albumin (3.5-5.0) g/dL Urine Color Yellow (Yellow) Urine Appearance Clear (Clear) Urine pH 5.0 (4.6-8.0) Ur Specific Frederick >=1.030 A (1.005-1.030) Urine Protein Trace A (Negative) Urine Glucose (UA) Negative (Negative) mg/dL Urine Ketones Negative (Negative) Urine Blood Large A (Negative) Urine Nitrite Negative (Negative) Urine Bilirubin Negative (Negative) Urine Urobilinogen 0.2 (0.2) mg/dL Ur Leukocyte Esterase Small A (Negative) U Hyaline Cast (Auto) 3-5 A (0-2) /LPF Urine Microscopic RBC 51-100 A (0-5) /HPF Urine Microscopic WBC 11-20 A (0-5) /HPF Ur Epithelial Cells Moderate A (None Seen) /HPF Urine Bacteria Few A (None Seen) /HPF Urine Culture Reflexed YES (NO) Influenza Type A Ag POSITIVE A (NEGATIVE) Influenza Type B Ag NEGATIVE (NEGATIVE) RSV (PCR) NEGATIVE (NEGATIVE) SARS-CoV-2 (PCR) NEGATIVE (NEGATIVE) Accuchecks Date 04/18/24 Time 23:34 - Radiology Impressions Radiology Exams & Impressions: Radiology Procedures Category Date Time Status CHEST 1 VIEW (PORTABLE) Stat Exams 04/19/24 03:[address] ANGIOGRAPHY NECK [CT] Stat Exams 04/19/24 00:01 Completed CTA HEAD W AND/OR WO CONTRAST [CT] Stat Exams 04/19/24 00:00 Completed HEAD WITHOUT CONTRAST [CT] Stat Exams 04/18/24 23:15 Completed Assessment/Plan (1) Influenza A H1N1 infection Current Visit: Yes Status: Acute Assessment & Plan: 1. Tamiflu x 5 days 2. IVF 3. Acetaminopen PRN Code(s): J10.1 - FLU DUE TO OTH IDENT INFLUENZA VIRUS W OTH RESP MANIFEST (2) Urinary tract infection Current Visit: Yes Status: Acute Assessment & Plan: 1. Given ceftriaxone in the ED 2. Await urine culture Code(s): N39.0 - URINARY TRACT INFECTION, SITE NOT SPECIFIED Telemedicine Encounter - Telemedicine Encounter Telemedicine Encounter: "The entirety of this encounter was performed via Telemedicine" This visit was performed using real-time audio and video connection between my location and thepatients locationwith the assistance of a surrogateat the patients location. Written or verbal consent was obtained from the patient/guardian to perform this visit usingsynchrAmple Communicationstelemedicine technology. Any patient questions regarding the telemedicine interaction were answered.
[2024-04-19] MEDS ORDERED: ULTRAM 50 MG PO PRN (06:21)
[2024-04-19 09:15] LABS: Absolute Neutrophil Ct (ANC) 2.29 x10^3/uL (1.56-6.13); BASOPHIL % 1.3 % (0.1-1.2); Basophil (Absolute #) 0.05 x10^3/uL (0.01-0.08); Eosinophil (Absolute #) 0.04 x10^3/uL (0.04-0.36); Hematocrit 42.8 % (34.1-44.9); Hemoglobin 13.3 g/dL (11.2-15.7); Lymphocyte (Absolute #) 1.08 x10^3/uL (1.18-3.74); Lymphocytes % 27.1 % (19.3-51.7); Mean Cell Volume 94.1 fL (79.4-94.8); Mean Corpuscular Hemoglobin 29.2 pg (25.6-32.2); Mean Corpuscular Hgb Concent. 31.1 g/dL (32.2-35.5); Mean Platelet Volume 11.1 fL (9.4-12.3); Monocyte (Absolute #) 0.52 x10^3/uL (0.24-0.86); Monocytes % 13.1 % (4.7-12.5); Neutrophil % 57.5 % (34.0-71.1); Platelet Count 197 x10^3/uL (182-369); Red Blood Count 4.55 x10^6/uL (3.93-5.22); Red Cell Distribution Width 15.1 % (11.7-14.4)
[2024-04-19 09:30] LABS: ALBUMIN 4.2 g/dL (3.5-5.0); ANION GAP 13.7 MEQ/L (5-15); BILIRUBIN,TOTAL 0.3 mg/dL (0.2-1.3); Calcium 8.4 mg/dL (8.4-10.2); Creatinine 1 1.29 mg/dL (0.52-1.04); EST GLOMERULAR FILTRATION RATE 45.2 ML/MIN; Potassium 3.8 mmol/L (3.5-5.1); Total Protein 7.4 g/dL (6.3-8.2)
[2024-04-19] MEDS ORDERED: Tamiflu 75MG Capsule PO SCH (10:00)
[2024-04-19] MEDS: ELIQUIS 2.5 MG TABLET PO SCH (10:49)
[2024-04-19] MEDS: Paxil 20 MG PO SCH (10:50)
[2024-04-19] MEDS: Vitamin B-12 500 MCG PO SCH (10:50)
[2024-04-19] MEDS: SENOKOT 8.6 MG PO SCH (10:50)
[2024-04-19] MEDS: FOLATE 1 MG PO SCH (10:50)
[2024-04-19] MEDS: ROCEPHIN 1 GM / 100 ML NaCl 1 GM/100 ML IVPB IV SCH (10:51)
[2024-04-19] MEDS: OSELTAMIVIR PHOSPHATE 30 MG CAP PO SCH (17:33)
[2024-04-19] MEDS: Sodium Chloride 0.9% 500 ML 500 ML IV SCH (20:50)
[2024-04-19] MEDS: ZOCOR 20MG PO SCH (21:45)
[2024-04-19] MEDS: Ambien 10 MG PO SCH (22:19)
[2024-04-20 06:07] LABS: Absolute Neutrophil Ct (ANC) 1.92 x10^3/uL (1.56-6.13); BASOPHIL % 0.5 % (0.1-1.2); Basophil (Absolute #) 0.02 x10^3/uL (0.01-0.08); Eosinophil % 1.3 % (0.7-5.8); Eosinophil (Absolute #) 0.05 x10^3/uL (0.04-0.36); Hematocrit 45.9 % (34.1-44.9); Hemoglobin 14.5 g/dL (11.2-15.7); IMMATURE GRAN # 0.01 x10^3u/L (0.001-0.031); IMMATURE GRAN % 0.3 % (0.001-0.429); Lymphocyte (Absolute #) 1.45 x10^3/uL (1.18-3.74); Lymphocytes % 37.7 % (19.3-51.7); Mean Cell Volume 93.9 fL (79.4-94.8); Mean Corpuscular Hemoglobin 29.7 pg (25.6-32.2); Mean Corpuscular Hgb Concent. 31.6 g/dL (32.2-35.5); Mean Platelet Volume 11.3 fL (9.4-12.3); Monocytes % 10.4 % (4.7-12.5); Neutrophil % 49.8 % (34.0-71.1); Platelet Count 231 x10^3/uL (182-369); Red Blood Count 4.89 x10^6/uL (3.93-5.22); White Blood Count 3.9 x10^3/uL (3.98-10.04)
[2024-04-20 06:17] LABS: ALBUMIN 4.3 g/dL (3.5-5.0); ANION GAP 13.2 MEQ/L (5-15); BILIRUBIN,TOTAL 0.3 mg/dL (0.2-1.3); Calcium 8.9 mg/dL (8.4-10.2); Creatinine 1 1.26 mg/dL (0.52-1.04); EST GLOMERULAR FILTRATION RATE 46.5 ML/MIN; Potassium 3.8 mmol/L (3.5-5.1); Total Protein 7.6 g/dL (6.3-8.2)
[2024-04-20] MEDS: Lasix 40 MG/4 ML IV SCH (10:10)
--- NOTE | 2024-04-20 10:13 | XRAY ---
Indication: Stroke symptoms. Negative CT head, normal CTA neck, and normal CTA head exams. Sagittal, coronal, and axial MRI brain performed without contrast using T1, T2, FLAIR, diffusion, and ADC sequences. Comparison: None Ventriculosulcal pattern appears symmetric with age-appropriate global atrophy. Tiny degenerative micro-ischemia signal seen in periventricular white matter bilaterally and brainstem. No acute intracranial hemorrhage, abnormal extra-axial fluid collection, or mass effect. Diffusion images negative for restricted signal. Fourth ventricle is midline without hydrocephalus. 7/8 coronal nerve complex bilaterally symmetric. Normal flow void signal within the major intracerebral circulation. Normal appearing craniocervical junction and sella turcica. Normal flow void signal within the major intracerebral circulation. Minimally mucosal thickening both ethmoid sinuses. Impression: Atrophy and degenerative micro-ischemia within normal limits. Minimal paranasal sinus disease. Remaining MRI brain without contrast exam is negative.
--- NOTE | 2024-04-20 13:48 | PCM.NOTE ---
Date and Time: 04/20/24 1348 Subjective Assessment: 04/20/24 68 year old female with history of a fib on eliquis,and prior ischemic strokes. She presented to the ER on 04/18/24 with not feeling well for the past few days then developed slurring of speech. She was brought to the ED with concern for another stroke, but fully recovered and had a NIIH stroke scale score of 0. She was found to be influenza A positive and Tamiflu started. CT head was unremarkable. UA showed possible UTI and IV antibiotic started. MRI brain negative for acute concern. Will continue Lasix 40mg IV daily for BL pleural effusions. Echo pending for further eval of cardiomegaly and BL pleural effusions. She reports she has never seen a judge before and OP f/u appointment made today for d/c. Likely will d/c tomorrow if sxs improve and echo non-concerning. She denies CP, SOB, abd. pain, N/V/D. She is RA 92% today. - Review of Systems Constitutional: No Fever, No Chills Eyes: No Symptoms Ears, Nose, & Throat: No Symptoms Respiratory: No Cough, No Short Of Breath Cardiac: No Chest Pain, No Edema, No Syncope Abdominal/Gastrointestinal: No Abdominal Pain, No Nausea, No Vomiting, No Diarrhea Genitourinary Symptoms: No Dysuria Musculoskeletal: No Back Pain, No Neck Pain Skin: No Rash Neurological: No Dizziness, No Focal Weakness, No Sensory Changes Psychological: No Symptoms Endocrine: No Symptoms Hematologic/Lymphatic: No Symptoms Immunological/Allergic: No Symptoms Objective Exam General Appearance: no apparent distress, alert Neurologic Exam: alert, oriented x 3, cooperative, normal mood/affect, nml cerebellar function, sensation nml, No motor deficits Skin Exam: normal color, warm, dry Eye Exam: PERRL, EOMI, eyes nml inspection Ears, Nose, Throat Exam: normal ENT inspection, pharynx normal, moist mucous membranes Neck Exam: normal inspection, non-tender, supple, full range of motion Respiratory Exam: normal breath sounds, lungs clear, No respiratory distress Cardiovascular Exam: regular rate/rhythm, normal heart sounds Gastrointestinal/Abdomen Exam: soft, No tenderness, No mass Extremity Exam: normal inspection, normal range of motion Back Exam: normal inspection, normal range of motion, No CVA tenderness, No vertebral tenderness Pelvic Exam: deferred Rectal Exam: deferred Objective Data Vital Signs: Vital Signs - 24 hr Temp Pulse Resp BP Pulse Ox 04/20/24 11:11 98.1 F 68 16 108/59 91 L 04/20/24 07:16 97.7 F 70 16 107/51 92 L 04/20/24 06:07 92 L 04/20/24 04:00 97.7 F 76 16 107/53 90 L 04/20/24 00:00 97.7 F 71 15 125/58 90 L 04/19/24 20:00 97.5 F 71 16 113/54 91 L 04/19/24 16:00 97.7 F 67 17 116/56 95 Pain Assessment - Last Documented Pain Intensity 0 Intake and Output: Intake & Output 04/18/24 04/19/24 04/20/24 04/21/24 11:59 11:59 11:59 11:59 Intake Total 280 1671 Balance 280 1671 Weight 77.2 kg Lab Results: Lab Results-Last 24 Hours 04/20/24 04/20/24 Range/Units 04:20 04:20 WBC 3.9 L (3.98-10.04) x10^3/uL RBC 4.89 (3.93-5.22) x10^6/uL Hgb 14.5 (11.2-15.7) g/dL Hct 45.9 H (34.1-44.9) % MCV 93.9 (79.4-94.8) fL MCH 29.7 (25.6-32.2) pg MCHC 31.6 L (32.2-35.5) g/dL RDW 15.0 H (11.7-14.4) % Plt Count 231 (182-369) x10^3/uL MPV 11.3 (9.4-12.3) fL Gran % 49.8 (34.0-71.1) % Immature Gran % (Auto) 0.3 (0.001-0.429) % Nucleat RBC Rel Count 0.0 (0.00-0.2) % Eos # (Auto) 0.05 (0.04-0.36) x10^3/uL Immature Gran # (Auto) 0.01 (0.001-0.031) x10^3u/L Absolute Lymphs (auto) 1.45 (1.18-3.74) x10^3/uL Absolute Monos (auto) 0.40 (0.24-0.86) x10^3/uL Absolute Nucleated RBC 0.00 (0.00-0.012) x10^3u/L Lymphocytes % 37.7 (19.3-51.7) % Monocytes % 10.4 (4.7-12.5) % Eosinophils % 1.3 (0.7-5.8) % Basophils % 0.5 (0.1-1.2) % Absolute Granulocytes 1.92 (1.56-6.13) x10^3/uL Basophils # 0.02 (0.01-0.08) x10^3/uL Sodium 140 (135-145) mmol/L Potassium 3.8 (3.5-5.1) mmol/L Chloride 106 (98-107) mmol/L Carbon Dioxide 25 (22-30) mmol/L Anion Gap 13.2 (5-15) MEQ/L BUN 20 H (7-17) mg/dL Creatinine 1.26 H (0.52-1.04) mg/dL Estimated GFR 46.5 ML/MIN Glucose 110 H (74-106) mg/dL Calcium 8.9 (8.4-10.2) mg/dL Total Bilirubin 0.30 (0.2-1.3) mg/dL AST 56 H (14-36) U/L ALT 41 H (0-35) U/L Alkaline Phosphatase 146 H (38-126) U/L Serum Total Protein 7.6 (6.3-8.2) g/dL Albumin 4.3 (3.5-5.0) g/dL Radiology Exams: Radiology Procedures Category Date Time Status CHEST 1 VIEW (PORTABLE) Stat Exams 04/19/24 03:[address] ANGIOGRAPHY NECK [CT] Stat Exams 04/19/24 00:01 Completed CTA HEAD W AND/OR WO CONTRAST [CT] Stat Exams 04/19/24 00:00 Completed ECHO W/2D AND DOPPLER [US] Routine Exams 04/20/24 08:19 Taken HEAD WITHOUT CONTRAST [CT] Stat Exams 04/18/24 23:15 Completed MRI BRAIN W/O CONTRAST [MRI] Routine Exams 04/20/24 08:16 Completed Assessment/Plan (1) Influenza A H1N1 infection Current Visit: Yes Status: Acute Assessment & Plan: - Tamiflu x 5 days - Acetaminopen PRN - isolation - CBC reviewed Code(s): J10.1 - FLU DUE TO OTH IDENT INFLUENZA VIRUS W OTH RESP MANIFEST (2) TIA (transient ischemic attack) Current Visit: Yes Status: Acute Assessment & Plan: - MRI negative for acute concern - CT head reviewed - CT angiography reviewed - Tele- neurology consulted- note reviewed and agree with plan of care- Labs ordered per consult - A1C, TSH, T3, T4 and lipid panel pending - PT/ST/OT- evals - Continue Eliquis Code(s): G45.9 - TRANSIENT CEREBRAL ISCHEMIC ATTACK, UNSPECIFIED (3) Urinary tract infection Current Visit: Yes Status: Acute Assessment & Plan: - Ceftriaxone IV - UC gram negative- sensitivity pending Code(s): N39.0 - URINARY TRACT INFECTION, SITE NOT SPECIFIED (4) Bilateral pleural effusion Current Visit: Yes Status: Acute Assessment & Plan: CXR: IMPRESSION: 1. Obliterated costophrenic angles by mild pleural effusion. (L>R) 2. Bilateral interstitial coarsening. 3. Cardiomegaly. 4. Pulmonary edema should be ruled out clinically - Lasix 40mg IV daily - Echo- pending - Cardiology appointment made OP - Room air 92% - CBC reviewed Code(s): J90 - PLEURAL EFFUSION, NOT ELSEWHERE CLASSIFIED (5) CKD (chronic kidney disease) Current Visit: Yes Status: Chronic Assessment & Plan: - Creat 1.26- better than baseline today after reviewing old labs - CMP reviewed VTE: Eliquis PPI: protonix Next of KIN: Spouse- Irving Evans- [phone] D/C plan: tomorrow? Code status: Full Code(s): N18.9 - CHRONIC KIDNEY DISEASE, UNSPECIFIED
[2024-04-20] MEDS: Protonix 20MG Tablet PO SCH (14:42)
[2024-04-21 04:56] LABS: Hemoglobin 14.5 g/dL (11.2-15.7); Mean Cell Volume 91.8 fL (79.4-94.8); Mean Corpuscular Hemoglobin 29.6 pg (25.6-32.2); Mean Corpuscular Hgb Concent. 32.2 g/dL (32.2-35.5); Mean Platelet Volume 10.8 fL (9.4-12.3); Platelet Count 236 x10^3/uL (182-369); White Blood Count 4.7 x10^3/uL (3.98-10.04)
[2024-04-21 05:41] LABS: ALBUMIN 4.2 g/dL (3.5-5.0); ANION GAP 12.5 MEQ/L (5-15); BILIRUBIN,TOTAL 0.2 mg/dL (0.2-1.3); Creatinine 1 1.3 mg/dL (0.52-1.04); EST GLOMERULAR FILTRATION RATE 44.8 ML/MIN; Potassium 3.5 mmol/L (3.5-5.1); TSH, 3RD Generation 4.446 mIU/L (0.470-4.680); Total Protein 7.6 g/dL (6.3-8.2)
[2024-04-21 07:02] VITALS: RESP 16
--- NOTE | 2024-04-21 11:14 | PCM.DS ---
Discharge Summary Date of Admission: 04/19/24 06:03 Date of Discharge: 04/21/24 Admitting Physician: KAYLA SCHULZ MD Consults: Consults on Case 04/19/24 03:26 Tele-Health Consult ROUTINE 04/19/24 06:32 Case Management SDOH DC Needs Assessment ROUTINE Primary Care Provider: JOHANNA ALFRED V Allergies Allergies Penicillins Allergy (Unknown, Verified 04/18/24 23:49) unknown reaction from childhood. hydrocodone Adverse Reaction (Mild, Verified 04/18/24 23:49) Vomiting oxycodone Adverse Reaction (Mild, Verified 04/18/24 23:49) Vomiting Hospital Summary - Hospital Course Hospital Course: This is a patient who presented to the hospital with TIA symptoms. She was evaluated by neurology. Workup was negative, including a MRI of the brain. The patient is already on Eliquis and a statin. Additionally, the patient had influenza and is being treated with Tamiflu. The patient had bilateral pleural effusions and edema which responded to IV Lasix. The echocardiogram is pending at this time. The patient will be discharged on daily oral Lasix for 1 week with a recommendation to follow up with Dr. Alfred for reassessment (after daily weights) with consideration of repeat CXR and/or labs (BMP, due to the patient's CKD), and with consideration of continued Lasix thereafter. The patient will fol low up on regarding the pending echocardiogram, and may need cardiology referral. The patient also has evidence of a UTI, and preliminary culture results demonstrate gram positive cocci. The patient has been receiving IV Rocephin but will switch to oral doxycycline at the time of discharge. - Vitals & Intake/Output Vital Signs: Vital Signs Temperature 97.9 F 04/21/24 07:01 Pulse Rate 67 04/21/24 07:01 Respiratory Rate 16 04/21/24 07:01 Blood Pressure 105/55 04/21/24 07:01 O2 Sat by Pulse Oximetry 94 L 04/21/24 07:01 Intake & Output: Intake & Output 04/18/24 04/19/24 04/20/24 04/21/24 11:59 11:59 11:59 11:59 Intake Total 280 1671 1002 Balance 280 1671 1002 Weight 77.2 kg - Lab Result Diagrams: 04/21/24 04:44 04/21/24 04:44 Lab Results-Last 24 Hrs: Lab Results-Last 24 Hours 04/21/24 04/21/24 04/21/24 Range/Units 04:44 04:44 04:44 WBC 4.7 (3.98-10.04) x10^3/uL RBC 4.90 (3.93-5.22) x10^6/uL Hgb 14.5 (11.2-15.7) g/dL Hct 45.0 H (34.1-44.9) % MCV 91.8 (79.4-94.8) fL MCH 29.6 (25.6-32.2) pg MCHC 32.2 (32.2-35.5) g/dL RDW 15.0 H (11.7-14.4) % Plt Count 236 (182-369) x10^3/uL MPV 10.8 (9.4-12.3) fL Sodium 140 (135-145) mmol/L Potassium 3.5 (3.5-5.1) mmol/L Chloride 106 (98-107) mmol/L Carbon Dioxide 26 (22-30) mmol/L Anion Gap 12.5 (5-15) MEQ/L BUN 25 H (7-17) mg/dL Creatinine 1.30 H (0.52-1.04) mg/dL Estimated GFR 44.8 ML/MIN Glucose 115 H (74-106) mg/dL Hemoglobin A1c 5.65 (4.5-6.0) % Calcium 9.0 (8.4-10.2) mg/dL Total Bilirubin 0.20 (0.2-1.3) mg/dL AST 47 H (14-36) U/L ALT 35 (0-35) U/L Alkaline Phosphatase 139 H (38-126) U/L Serum Total Protein 7.6 (6.3-8.2) g/dL Albumin 4.2 (3.5-5.0) g/dL Triglycerides 159 H (30-150) mg/dL Cholesterol 182 (50-200) mg/dL LDL Cholesterol 87 (30-100) mg/dL HDL Cholesterol 55 (40-60) mg/dL Heart Disease Risk Ratio 3.0 TSH 3rd Generation 4.446 (0.470-4.680) mIU/L Micro Results-Entire Visit: Microbiology 04/19/24 00:36 Urine Culture - Preliminary Urine, Void GRAM POSITIVE ID AND SENSITIVITY PENDING - Radiology Exams Ordered Rad Exams-Entire Visit: Radiology Procedures Category Date Time Status ECHO W/2D AND DOPPLER [US] Routine Exams 04/20/24 08:19 Taken MRI BRAIN W/O CONTRAST [MRI] Routine Exams 04/20/24 08:16 Completed - Procedures and Test Procedures and Tests throughout Hospitalization: Therapy Orders & Screens 04/20/24 08:27 PT Eval & Treat (MD Order) ONCE Reason for Eval:: TIA Diagnosis: TIA ST Eval & Treat (MD Order) .as ordered Comment: Physician Instructions: Reason For Exam: Evaluate: Yes Treat: Yes Reason for Eval: TIA Diagnosis: TIA OT Eval and Treat (MD Order) ONCE Comment: Physician Instructions: Reason For Exam: Diagnosis: TIA Discharge Exam General Appearance: no apparent distress, alert Neurologic Exam: alert, oriented x 3, cooperative, 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, normal mood/affect, nml cerebellar function Eye Exam: PERRL, EOMI, eyes nml inspection Ears, Nose, Throat Exam: normal ENT inspection Neck Exam: normal inspection, supple, full range of motion Respiratory Exam: normal breath sounds, lungs clear Cardiovascular Exam: regular rate/rhythm, normal heart sounds Gastrointestinal/Abdomen Exam: soft, normal bowel sounds Back Exam: normal range of motion Extremity Exam: normal inspection, normal range of motion Skin Exam: normal color, warm Telemedicine Encounter - Telemedicine Encounter Telemedicine Encounter: "The entirety of this encounter was performed via Telemedicine" This visit was performed using real-time audio and video connection between my location and thepatients locationwith the assistance of a surrogateat the patients location. Written or verbal consent was obtained from the patient/guardian to perform this visit usingE [email or web address] technology. Any patient questions regarding the telemedicine interaction were answered. Please note that this discharge required greater than 30 minutes to complete. - Discharge Disposition: Home, Self-Care Condition: Fair Prescriptions: New Furosemide 20 mg [Lasix 20 mg] 20 mg PO DAILY 7 Days #7 tablet Oseltamivir Phosphate [Oseltamivir Phosphate 30 mg Cap] 30 mg PO BIDWM 3 Days #6 cap Doxycycline Hyclate 100 mg [Vibramycin 100 MG] 100 mg PO BID 5 Days #10 tab Continue Atorvastatin Calcium 80 mg PO HS Tramadol HCl 50 mg PO DAILY PRN PRN Reason: Pain Paroxetine Mesylate 25 mg PO DAILY Alendronate Sodium 35 mg PO WEEKLY Sennosides [Senna] 8.6 mg PO UD Folic Acid 1 mg [Folate 1 mg] 1 mg PO DAILY Zolpidem Tartrate 10 mg [Ambien 10 MG] 10 mg PO HS Apixaban [Eliquis] 5 mg PO BID Cyanocobalamin (Vitamin B-12) [Vitamin B-12] 1,000 mcg PO DAILY Additional Instructions: Weigh yourself daily and take the weight log to Dr. Alfred's office. See Dr. Alfred on 04/27/23 and consider repeat CXR imaging, and continued Lasix dosing. Follow up on the pending echocardiogram and urine culture results. Follow up with: JOHANNA ALFRED MD [Primary Care Provider] - 04/27/24 10:45 am
[2024-04-21 11:15] VITALS: BP 111/55; PULSE 73; TEMP 97.8; O2SAT 93
[2024-04-22 08:51] LABS: Thyroxine (T4) 7.2 ug/dL (4.5-12.0)
[2024-04-26 17:06] LABS: Reverse T3 15.5 ng/dL (9.2-24.1)
[2024-04-26 17:29] LABS: T3/rT3 Ratio 6.5 (Not Estab)
[2024-05-01] MEDS ORDERED: Fosamax 70 MG PO SCH (06:00)
== END 2024-04-21 11:43 | disposition home health service (06) ==
LOC: ED 23:14 → MED SURG 04-19 06:03
PROVIDERS: ADMIT Student in an Organized Health Care Education/Training Program; ATTEND Student in an Organized Health Care Education/Training Program
DX: J10.1 Influenza due to other identified influenza virus with other respiratory manifestations (principal); N39.0 Urinary tract infection, site not specified; I48.91 Unspecified atrial fibrillation; G45.9 Transient cerebral ischemic attack, unspecified; J90 Pleural effusion, not elsewhere classified; N18.9 Chronic kidney disease, unspecified; Z86.73 Personal history of transient ischemic attack (TIA), and cerebral infarction without residual deficits; Z79.01 Long term (current) use of anticoagulants; Z79.899 Other long term (current) drug therapy
CPT/HCPCS: 0241U; 36415; 70450; 70496; 70498; 70551; 71045; 80053; 80061; 81001; 83036; 83721; 84436; 84443; 84480; 84482; 85025; 85027; 85060; 85610; 87077; 87086; 93005; 93041; 93268; 93306; 94760; 96374; 96375; 97161; 97165; 99285; G0378; Q3014; 99284; J0696; J1940; A9270-GY